=== PATIENT | male | born 1965 | race Caucasian/White ===

== ENCOUNTER 2018-05-24 08:25 | Day surgery (SDC) | payer OTHER, SELFPAY ==
[2018-05-01 16:24] VITALS: BMI 34.8
[2018-05-15 16:49] VITALS: BMI 34.8
[2018-05-24] VITALS (7 sets, daily range): BP systolic 114–139; BP diastolic 68–89; PULSE 41–56; RESP 16; TEMP 36.1–36.4; O2SAT 95–100; BMI 33.1
--- NOTE | 2018-05-24 09:53 | H&P.OPEN ---
History of Present Illness Date of Admission: 05/24/18 The patient is a 52 year old M here for screening colonoscopy. The patient reports he is never had a colonoscopy in the past. He denies any abdominal pain or bleeding. He says his only family history of colon cancer was in his grandfather at an elderly age. Past Medical/Surgical History - Planned Operation Planned Operative Procedure/s: COLONOSCOPY Date of Operative Procedure: 05/24/18 Permit Signed: Yes S.O.S: No Is This Patient Having a Total Joint: No - Previous Hospitalizations/Surgeries HX Hospitalizations: No Any Problems With Anesthesia: No You/Your Family Experience Fever (Hyperthermia) With Anes: No Cholinesterase deficiency: No - Cardiovascular Hx Chest Pain within Last 2 months: No Hx of Irregular Heartbeat and/or Afib: No Hx Heart Attack: No Hx Congestive Heart Failure: No Hx Rheumatic Fever: No Hx Hypertension: Yes - ON MED, STARTED 3 WEEKS AGO Hx Internal Defibrillator: No Hx Pacemaker: No Hx Cardiac Catheterization: No Hx Cardiac Surgery/Stents/Etc.: No Hx Stress Test: No HX Edema: No Hx Pain in Legs when Walking/Leg Cramps: No - Respiratory Chronic Cough: No HX of Shortness of Breath: No Hoarseness: No Hx Chronic Obstructive Pulmonary Disease (COPD): No Hx Asthma: No Hx Emphysema: No Hx Sleep Apnea: Yes CPAP: No BIPAP: No Hx Oxygen Use at Home: No Hx Respiratory Tract Infection/Cold (presently): No Result (for STOP score): Positive Hx Smoking: No Smoking Status: Never smoker - Gastrointestinal Hx Gastroesophageal Reflux: No Hx Gastrointestinal Disorders: No Hx Gastrointestinal Bleed: No Hx Ulcer: No Hx Hiatal Hernia: No Difficulty Chewing/Swallowing: No Recent Onset of Swallowing Problems: No Special diet followed at home: No Hx Unplanned Weight Loss of 20#: No HX Unplanned Weight Gain of 20#: No - Neurological Hx Seizures: No HX Syncope/Blackout Spells/Unconsciousness: No Hx CVA/Stroke: No Hx Transient Ischemic Attacks (TIA): No Hx Multiple Sclerosis: No Hx Parkinson's Disease: No Hx Head/Neck Injury: No Hx Headaches: No Hx Back Injury/Pain: Yes Recent Onset of Speech Difficulty: No Restless Legs: No Does patient have nerve stimulator: No - Blood Disorder Hx Leukemia: No Bleeding Tendencies: No Hx Deep Vein Thrombosis: No Hx High Cholesterol: No Blood Transmitted Disease: No Hx Hepatitis: No Hx Cirrhosis: No Hx Anemia: No Hx Blood Disorders: No - Genitourinary Hx Renal Disease: No - Musculoskeletal Hx Arthritis: No Hx Rheumatoid Arthritis: No Hx Gout: No Recent Onset of an Orthopedic Problem: No - Endocrine Hx Diabetes: No Thyroid Disease: No Hx Steroid Therapy: No - Psycho/Social Hx Substance Use: No Hx Alcohol Use: Yes - 1-2 BEER EVERY OTHER DAY Hx Anxiety: No Hx Depression: No Mental Illness: No Hx Dementia: No - Miscellaneous Hx Cancer: No Recent Exposure to Contagious Disease: No Active MRSA: No Hx of C-Diff: No Any Loose Teeth: Yes - UPPER DENTURES Allergies No Known Allergies Allergy (Verified 05/21/18 12:02) - Discharge Is Pt Admitted From a Skilled Nursing, or a [place] [facility]: No Who Could Help: [facility] After D/C, Where Do you Plan to Go: Return Home - Physical Exam General: Alert, Oriented x3 Neck: No JVD Lungs: Normal air movement Cardiovascular: Regular rate, Regular Rhythm Abdomen: Soft, Non Tender, Non-Distended Vital Signs Temp Pulse Resp BP Pulse Ox 96.9 F L 50 L 16 138/89 H 99 05/24/18 08:43 05/24/18 08:43 05/24/18 08:43 05/24/18 08:43 05/24/18 08:43 Oxygen Delivery Method Room Air Weight: 224 lb 10.417 oz Body Mass Index (BMI) 33.1 Assessment/Plan All Active Problems (Last Updated 05/01/18 @ 16:28 by Adele Fox) Meningitis spinal (Acute) 52-year-old male screening colonoscopy I explained endoscopy in detail to the patient. I explained the risks including but not limited to stroke or heart attack with anesthesia, perforation of the GI tract, bleeding, infection. I explained that any of these could necessitate further emergency surgery. The patient understands and all questions were answered sufficiently. The patient wishes to proceed with procedure. Aldo Hma MD Pager: [facility] [address] [place] [address], [address] [place] [address] Office: Surgery Risks - Colonoscopy Risks Include but are not Limited To: Risks include but are not limited to: Bleeding, perforation requiring further surgery, inability to complete colonoscopy requiring barium enema.
--- NOTE | 2018-05-24 10:16 | OP.ENDO_ITS ---
Patient Name: Jose Meneses Procedure Date: 05/24/2018 9:55 AM Date of : 1965 Age: 52 Procedure: Colonoscopy Indications: Screening for colorectal malignant neoplasm Providers: Aldo Ham MD Medicines: Monitored Anesthesia Care Patient Profile: This is a 52 year old male. Refer to note in patient chart for documentation of history and physical. Last Colonoscopy: none. The patient's first colonoscopy is today. Complications: No immediate complications. Procedure: Pre-Anesthesia Assessment: - Prior to the procedure, a History and Physical was performed, and patient medications and allergies were reviewed. The patient's tolerance of previous anesthesia was also reviewed. The risks and benefits of the procedure and the sedation options and risks were discussed with the patient. All questions were answered, and informed consent was obtained. Prior Anticoagulants: The patient has taken no previous anticoagulant or antiplatelet agents. After reviewing the risks and benefits, the patient was deemed in satisfactory condition to undergo the procedure. After I obtained informed consent, the scope was passed under direct vision. Throughout the procedure, the patient's blood pressure, pulse, and oxygen saturations were monitored continuously. The pediatric colonoscope was introduced through the anus and advanced to the cecum, identified by appendiceal orifice and ileocecal valve. The colonoscopy was performed without difficulty. The patient tolerated the procedure well. The quality of the bowel preparation was good. Scope In: 10:02:03 AM Scope Withdrawal Time 0 hours 6 minutes 14 seconds Scope Out: 10:12:19 AM Total Procedure Duration Time 0 hours 10 minutes 16 seconds Findings: The entire examined colon appeared normal on direct and retroflexion views. Impression: - The entire examined colon is normal on direct and retroflexion views. - No specimens collected. Recommendation: - Discharge patient to home. - Resume previous diet. - Continue present medications. - Repeat colonoscopy in 10 years for screening purposes. Procedure Code(s): --- Professional --- 75419, PT, Colonoscopy, flexible; diagnostic, including collection of specimen(s) by brushing or washing, when performed (separate procedure) Diagnosis Code(s): --- Professional --- Z12.11, Encounter for screening for malignant neoplasm of colon CPT copyright 2017 [employer]. All rights reserved. The codes documented in this report are preliminary and upon field operations technician review may be revised to meet current compliance requirements. Aldo Ham MD 05/24/2018 10:15:34 AM This report has been signed electronically. Number of Addenda: 0 Note Initiated On: 05/24/2018 9:55 AM
== END 2018-05-24 11:18 | disposition home or self-care (01) ==
LOC: EN 08:26 → AC 08:28
PROVIDERS: Family Provider Family Medicine; PCP Family Medicine; Referring Provider Surgery; Visit Provider Surgery
PROC: 0DJD8ZZ Inspection of Lower Intestinal Tract, Via Natural or Artificial Opening Endoscopic (ICD-10-PCS; CPT 45378; principal; 2018-05-24 09:25)
DX: Z12.11 Encounter for screening for malignant neoplasm of colon (principal); I10 Essential (primary) hypertension
CPT/HCPCS: 45378; J7120

== ENCOUNTER 2024-02-20 13:15 | Outpatient (RCR) | payer BC, SELFPAY ==
[2024-02-06 10:05] VITALS: BP 153/86; PULSE 76; RESP 18; TEMP 36.8; BMI 43.3
--- NOTE | 2024-02-06 11:42 | HP.PCM_ITS ---
History of Present Illness Date of Service: 02/06/24 Chief Complaint: Right leg ulceration History of Wound: Right leg ulceration Progress of Wound: Mr. Meneses is a 58-year-old nondiabetic male presented wound care center today for evaluation of full-thickness wound to the right lower extremity. Patient was seen by an outside provider who provided compression wraps to the patient however his wound has gotten worse with notable drainage and malodor. The patient is not a diabetic. He does use compression stockings but has not been able to get the right wound on his leg healed. He has had continuous compression wraps without much success. He did do 1 round of Bactrim antibiotics but the wounds are still present. He denies trauma denies constitutional symptoms. No other pedal complaints at this time. [facility] Medical History (Updated 02/06/24 @ 11:[address] Ye Quinones DPM) Sleep apnea History of back problems Hypertension Meningitis spinal Home Medications ?Medication ?Instructions ?Recorded ?Last Taken ?Type amlodipine 5 mg-valsartan 160 mg 1 tab PO DAILY #90 tabs 03/15/21 Unknown Rx tablet amoxicillin 875 mg-potassium 1 tab PO BID 2 weeks #28 tabs 02/06/24 Unknown Rx clavulanate 125 mg tablet atorvastatin 20 mg tablet 30 mg PO DAILY 02/06/24 Unknown History gabapentin 600 mg tablet 600 mg PO TID 02/06/24 Unknown History tramadol 50 mg tablet 50 mg PO TID PRN PRN pain 02/06/24 Unknown History triamterene 37.5 1 cap PO DAILY 02/06/24 Unknown History mg-hydrochlorothiazide 25 mg capsule valsartan 80 mg tablet 80 mg PO DAILY 02/06/24 Unknown History Allergy/AdvReac Type Severity Reaction Status Date / Time No Known Allergies Allergy Verified 02/06/24 10:00 Family History Grandfather Colon cancer Alcoholism Father Myocardial infarction, Onset Age: 52 Surgical History History of colonoscopy Social History Smoking Status: Never smoker alcohol intake: current alcohol intake frequency: a few times a week Alcohol type: beer substance use type: does not use what type of physical activity do you participate in: none frequency: daily Vital Signs Vital Signs Vital Signs: 02/06/24 10:05 Temperature 98.2 F Temperature Source Temporal Pulse Rate 76 Respiratory Rate 18 Blood Pressure 153/86 H Blood Pressure Mean 108 Blood Pressure Source Monitor Blood Pressure Position Sitting Blood Pressure Location Right Arm Oxygen Delivery Method Room Air Weight Weight: 129.274 kg Body Mass Index (BMI) 43.3 Physical Exam Narrative Vascular: DP and PT pulse are faintly palpable secondary to edema. CFT is brisk. There is blanchable erythema to the right leg. Skin temperature gradient is warm to warm from proximal ankles to distal digit. No focal warmth is appreciated left lower extremity. +1 pitting edema bilateral. Neurological: Light touch intact. Patient does respond to painful stimuli. Dermatological: Full-thickness ulceration to the right leg measuring 4.0 x 2.3 x 0.1 cm. Full-thickness ulceration to the left leg measuring 3.5 x 3.5 x 0.1 cm. The wound base to the right leg is fibrogranular in nature. Evidence of weeping serous drainage. Mild malodor. Negative probe to bone bilateral. Musculoskeletal: Muscle strength is 5 out of 5 in all quadrants bilateral. Mild to moderate palpatory tenderness appreciated to the right leg. No pain with calf compression bilateral. Debridement Note Debridement Note Post-Debridement Measurements and Additional Note: Post-Debridement Measurements/Treatment - Nurse 1 - General Ulcer Assessment Start: 02/06/24 10:00 Freq: Status: Active Protocol: WC.LOWEXT Activity Type Activity Date Activity User E-sign Co-sign Detail Recorded Client Recorded Date Recorded By Document 02/06/24 10:05 STEPHY [id number] 02/06/24 10:09 STEPHY 02/06/24 10:05 - Today's Visit Information Type of service Initial Visit Arrival Mode Ambulatory Patient Identification Verified (Name & Yes ) Patient Requires Transmission-Based No Precautions Safety Precautions Fall Prevention Height and Weight Height 5 ft 8 in Weight 129.274 kg Weight in Pounds 285.0 lbs Weight Measurement Method Estimated by Patient Body Mass Index (BMI) 43.3 BMI Classification Obese BSA - Moses 2.38 Vital Signs Temperature (97.8 F-99.1 F) 98.2 F Temperature Source Temporal Pulse Rate (60-100) 76 Pulse Location Monitor Respiratory Rate (12-18) 18 Respiratory rate source Observation Oxygen Delivery Method Room Air Blood Pressure (90/60-120/80) 153/86 H Blood Pressure Mean 108 Source Monitor Position Sitting Blood Pressure Location Right Arm History Since Last Visit- (Skip if this is Patient's initial visit) Left Footwear Regular Shoe Right Footwear Regular Shoe Pain Scale: 0-10 Numeric Is Patient Pain Free? Yes Communication Assessment Preferred language [place] Islander Supervisor Policy Change Clerks Required No Able to Read Yes Able to Write Yes Right Hearing Abillity Normal Left Hearing Abillity Normal Visual Assistive Devices Glasses Teaching Assessment Preferences Verbal,Written, Demonstration Barriers to Learning None Readiness To Learn Excellent Willingness to Engage in Self Management High Activies Readiness to Engage in Self Management High Activities Anxiety Level Calm Cooperation Cooperative Perception Coherent Interest in Health Problem Asks Questions Education Importance Acknowledges Need Does Patient Smoke tobacco or other Yes substances Smoking Status Never smoker Is Patient Diabetic No Functional Assessment Recent Decline in Ability to Perform Denies Any Declines Culture/Orthodoxy/Brazing Machine Feeder Cultural/Orthodoxy Needs that may affect No Treatment Plan Teaching: Wound Center *Welcome to the Wound Center -Person Taught Patient -Teaching Method Discussion -Response to teaching Verbalize Understanding WC - Nurse 1 - General Ulcer Measurement Start: 02/06/24 10:00 Freq: Status: Active Protocol: Activity Type Activity Date Activity User E-sign Co-sign Detail Recorded Client Recorded Date Recorded By Document 02/06/24 10:09 STEPHY [id number] 02/06/24 10:33 DS 02/06/24 10:09 Wound Center Nurse 1 #2 right leg -Tunneling No -Undermining/Tunneling No -Circular Undermining No -Exudate Amt Medium -Exudate Type Serosanguineous -Granulation Amt Medium (34-66%) -Granulation Quality [place] -Necrosis Amt Medium (34-66%) -Necrotic Tissue Type Adherent Slough -Temperature (Ines-wound Skin No Abnormality Appearance) (Pt Warm) -Tenderness on Palpation (Ines-wound Yes Skin Appearance) -Ulcer Cleansing Soap and Water -Anesthetic Used 4% Lidocaine Solution #3 left post calf -Current Size (cm) - Length 3.5 -Current Size (cm) - Width 3.5 -Current Size (cm) - Depth 0.1 -Total Square Cm 12.25 -Date of Last Picture (Recall this 02/06/24 field) -Photo Taken Yes -Tunneling No -Undermining/Tunneling No -Circular Undermining No -Exudate Amt Small -Exudate Type Serosanguineous -Wound Margin Distinct, Outline Attached -Granulation Amt Medium (34-66%) -Granulation Quality [place] -Necrosis Amt Medium (34-66%) -Necrotic Tissue Type Adherent Slough -Texture (Ines-wound Skin Appearance) Assessed -Moisture (Ines-wound Skin Appearance) Assessed -Color (Ines-wound Skin Appearance) Assessed -Temperature (Ines-wound Skin No Abnormality Appearance) (Pt Warm) -Tenderness on Palpation (Ines-wound Yes Skin Appearance) -Ulcer Cleansing Soap and Water -Anesthetic Used 4% Lidocaine Solution #1 right lateral leg -Current Size (cm) - Length 4.0 -Current Size (cm) - Width 2.3 -Current Size (cm) - Depth 0.1 -Total Square Cm 9.20 -Date of Last Picture (Recall this 02/06/24 field) -Photo Taken Yes -Tunneling No -Undermining/Tunneling No -Circular Undermining No -Exudate Amt Large -Exudate Type Serosanguineous -Granulation Amt Small (1-33%) -Granulation Quality [place] -Necrosis Amt Medium (34-66%) -Necrotic Tissue Type Adherent Slough -Texture (Ines-wound Skin Appearance) Assessed -Moisture (Ines-wound Skin Appearance) Assessed -Color (Ines-wound Skin Appearance) Assessed -Temperature (Ines-wound Skin No Abnormality Appearance) (Pt Warm) -Tenderness on Palpation (Ines-wound Yes Skin Appearance) -Ulcer Cleansing Soap and Water -Anesthetic Used 4% Lidocaine Solution Lower Limb Edema Present Yes Right Calf (cm) 50.2 Right Ankle (cm) 31.0 Left Calf (cm) 49.7 Left Ankle (cm) 30.8 WC - Nurse 2 - General Ulcer CM Notes Start: 02/06/24 10:00 Freq: Status: Active Protocol: Activity Type Activity Date Activity User E-sign Co-sign Detail Recorded Client Recorded Date Recorded By Document 02/06/24 11:14 MARIZA [id number] 02/06/24 11:15 MARIZA 02/06/24 11:14 Wound Center Nurse 2 #2 right leg -Correct Patient No -Correct Side, Site, Position No -Correct Procedure No -Procedure Performed No -Wound/Ulcer Outcome Not Healed -Debridement - Subq, 1st 20sq cm No #3 left post calf -Correct Patient No -Correct Side, Site, Position No -Correct Procedure No -Procedure Performed No -Wound/Ulcer Outcome Not Healed #1 right lateral leg -Correct Patient No -Correct Side, Site, Position No -Correct Procedure No -Procedure Performed No -Wound/Ulcer Outcome Not Healed Pain Scale: 0-10 Numeric Is Patient Pain Free? Yes - Nurse 3 - General Ulcer D/C NN Start: 02/06/24 10:00 Freq: Status: Active Protocol: Activity Type Activity Date Activity User E-sign Co-sign Detail Recorded Client Recorded Date Recorded By Document 02/06/24 11:23 [id number] 02/06/24 11:27 02/06/24 11:23 Wound Care Center Nurse 3 #2 right leg -Ulcer Cleansing Not Cleansed -Foul Odor after Cleansing No -Primary Dressing Applied Hysept ($) -Primary Dressing Covered/Secured with Dry Gauze & Roll Gauze, Secured with Tape Right -Lotion applied to leg before No compression wrap -Tubular Bandage Double Layer -Size of Tubigrip Used Size F -Size F ($) 4 Pain Scale: 0-10 Numeric Is Patient Pain Free? Yes - Visit Discharge Discharge Condition Stable Ambulatory Status Ambulatory Transportation Private Auto Assessment/Plan Assessment/Plan (1) Non-pressure chronic ulcer of other part of right lower leg with fat layer exposed: CODE(S): L97.812 - Non-pressure chronic ulcer of other part of right lower leg with fat layer exposed PLAN: Patient was examined and evaluated. All findings were discussed with the patient. All questions were answered to the patient's satisfaction. No debridement was done to the right lower extremity at this time. The full- thickness wound with cultures will be sent off for microbiology for culture and sensitivity. The patient will be placed on Augmentin 875 twice daily for 2 weeks. Will begin authorization for vascular and venous studies to the bilateral lower extremity to see if the patient needs referral to vascular surgery for possible intervention to the venous or arterial system. Once vascular studies have returned we will begin multilayer compression bandages if the patient is willing and able. The right lower extremity was dressed with Dakin solution, dry sterile dressing and a double layer Tubigrip was donned bilateral. Patient was given a order for extra supplies to be purchased at the [facility] retail pharmacy. He was instructed to change his dressings 1-2 times per day depending on drainage which she is understanding of. Educated the patient that he will need to elevate his bilateral lower extremity when he is at rest 4 inches above his heart which she is also understanding of. No plan for surgical intervention at this time but will continue conservative treatment with outpatient wound care management. Follow-up at the wound care center with Dr. Quinones in 2 week. (2) Non-pressure chronic ulcer of other part of left lower leg with fat layer exposed: CODE(S): L97.822 - Non-pressure chronic ulcer of other part of left lower leg with fat layer exposed (3) Lymphedema: CODE(S): I89.0 - Lymphedema, not elsewhere classified (4) Other specified peripheral vascular diseases: CODE(S): I73.89 - Other specified peripheral vascular diseases (5) Cellulitis: CODE(S): L03.90 - Cellulitis, unspecified QUALIFIERS: Site of cellulitis: extremity Site of cellulitis of extremity: lower extremity Laterality: right Qualified Code(s): L03.115 - Cellulitis of right lower limb
--- NOTE | 2024-02-07 09:35 | WC ---
PHOTO 02/06/24 LEFT LEG
--- NOTE | 2024-02-07 09:40 | WC ---
PHOTO RIGHT LEG 02/06/24
--- NOTE | 2024-02-07 09:43 | WC ---
PHOTO 02/06/24 RIGHT LEG
[2024-02-20 13:08] VITALS: BP 133/85; PULSE 112; RESP 18; TEMP 36.1; BMI 43.3
--- NOTE | 2024-02-20 13:37 | PN.PCM_ITS ---
History of Present Illness Date of Service: 02/20/24 Chief Complaint: Right leg ulceration History of Wound: Right leg ulceration Progress of Wound: Patient has been doing dressing changes to right lower extremity with Dakin's dry sterile dressing and compression wrap. He mitts improvement to his leg circumference and pain. He has taken his antibiotic as written. He presents today for reevaluation of Subjective Subjective Mr Meneses is a 58-year-old male presenting to the wound care center today for follow-up evaluation of full-thickness wound to the right leg secondary to peripheral vascular disease versus venous stasis. Patient was on his trip to [place] where he was doing dressing changes daily. He admits improvement to his leg. He still states there is pain with dressing changes but he has full sensation to the bilateral lower extremity. Patient is not diabetic. Denies trauma. Denies constitutional symptoms. No other pedal complaints at this time. Objective Data Objective Data Vital Signs: Vital Signs Temp Pulse Resp BP O2 Del Method 96.9 F L 112 H 18 133/85 H Room Air 02/20/24 13:08 02/20/24 13:08 02/20/24 13:08 02/20/24 13:08 02/20/24 13:08 Oxygen Delivery Method Room Air Weight: 129.274 kg Body Mass Index (BMI) 43.3 Lab / Micro Data Micro: Microbiology 02/06/24 11:05 Ulcer, Decubitus - Leg, Right Gram Stain - Final 02/06/24 11:05 Ulcer, Decubitus - Leg, Right Wound Culture - Final Serratia marcescens Staphylococcus aureus Streptococcus group G 02/06/24 11:05 Ulcer, Decubitus - Leg, Right Anaerobic Culture - Final Anaerobic cocci Physical Exam Narrative Vascular: DP and PT pulse are faintly palpable secondary to edema. CFT is brisk. Erythema improving to the right lower extremity. Skin temperature gradient is warm to warm from proximal ankles to distal digit. No focal warmth is appreciated left lower extremity. +1 pitting edema bilateral. Neurological: Light touch intact. Patient does respond to painful stimuli. Dermatological: Full-thickness ulceration to the right leg measuring 13.3 x 6.5 x 0.1 cm. The wound base to the right leg is fibrogranular in nature. Evidence of weeping serous drainage. No malodor. Negative probe to bone bilateral. Excisional debridement down to and including subcutaneous tissue with a number 7 mm dermal curette to the right leg full-thickness ulceration without incident. Predebridement measurement was 12.5 x 6.0 x 0.1 cm. Postdebridement measurement is 13.3 x 6.5 x 0.1 cm. Musculoskeletal: Muscle strength is 5 out of 5 in all quadrants bilateral. Mild to moderate palpatory tenderness appreciated to the right leg. No pain with calf compression bilateral. Debridement Note Debridement Note Debridement Free Text: Excisional debridement down to and including subcutaneous tissue with a number 7 mm dermal curette to the right leg full-thickness ulceration without incident. Predebridement measurement was 12.5 x 6.0 x 0.1 cm. Postdebridement measurement is 13.3 x 6.5 x 0.1 cm. 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 ) Arrival Mode Ambulatory Ambulatory Patient Identification Verified (Name & Yes Yes ) Patient Requires Transmission-Based No Precautions Safety Precautions Fall Prevention Height and Weight Height 5 ft 8 in Weight 129.274 kg Weight in Pounds 285.0 lbs Weight Measurement Method Estimated by Patient Body Mass Index (BMI) 43.3 43.3 BMI Classification Obese Obese BSA - Moses 2.38 Vital Signs Temperature (97.8 F-99.1 F) 98.2 F 96.9 F L Temperature Source Temporal Temporal Pulse Rate (60-100) 76 112 H Pulse Location Monitor Monitor Respiratory Rate (12-18) 18 18 Respiratory rate source Observation Observation Oxygen Delivery Method Room Air Room Air Blood Pressure (90/60-120/80) 153/86 H 133/85 H Blood Pressure Mean (mm Hg) 108 101 Source Monitor Monitor Position Sitting Semi-Fowlers Blood Pressure Location Right Arm Left Arm History Since Last Visit- (Skip if this is Patient's initial visit) Have you changed medications since your No last visit? Any new allergies or adverse reactions No Had a fall/change in ADL's that may No increase risk of falls Signs or symptoms of abuse and/or No neglect since last visit Have you been in the hospital since your No last visit? Has dressing in place as prescribed Yes Has compression in place as prescribed Yes Has offloadiing in place as prescribed N/A Experienced any changes in pain level or No management Left Footwear Regular Shoe Regular Shoe Right Footwear Regular Shoe Regular Shoe Pain Scale: 0-10 Numeric Is Patient Pain Free? Yes Yes Communication Assessment Preferred language [facility] Retail Support Specialist Required No Able to Read Yes Able to Write Yes Right Hearing Abillity Normal Left Hearing Abillity Normal Visual Assistive Devices Glasses Teaching Assessment Preferences Verbal,Written, Demonstration Barriers to Learning None Readiness To Learn Excellent Willingness to Engage in Self Management High Activies Readiness to Engage in Self Management High Activities Anxiety Level Calm Cooperation Cooperative Perception Coherent Interest in Health Problem Asks Questions Education Importance Acknowledges Need Does Patient Smoke tobacco or other Yes substances Smoking Status Never smoker Is Patient Diabetic No Functional Assessment Recent Decline in Ability to Perform Denies Any Declines 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 Needs that may affect No Treatment Plan Teaching: Wound Center *Welcome to the Wound Center -Person Taught Patient -Teaching Method Discussion -Response to teaching Verbalize Understanding WC - Nurse 1 - General Ulcer Measurement Start: 02/06/24 10:00 Freq: Status: Active Protocol: Activity Type Activity Date Activity User E-sign Co-sign Detail Recorded Client Recorded Date Recorded By Document 02/06/24 10:09 DS [id number] 02/06/24 10:33 DS Document 02/20/24 13:08 KW [id number] 02/20/24 13:21 KW 02/06/24 02/20/24 10:09 13:08 Wound Center Nurse 1 #2 right leg -Current Size (cm) - Length 24 -Current Size (cm) - Width 11.5 -Current Size (cm) - Depth 0.2 -Total Square Cm 276.0 -Date of Last Picture (Recall this 02/20/24 field) -Tunneling No -Undermining/Tunneling No -Circular Undermining No -Exudate Amt Medium Medium -Exudate Type Serosanguineous Serosanguineous -Wound Margin Distinct, Outline Attached -Granulation Amt Medium (34-66%) Medium (34-66%) -Granulation Quality [place] Red -Necrosis Amt Medium (34-66%) Medium (34-66%) -Necrotic Tissue Type Adherent Slough Adherent Slough -Texture (Ines-wound Skin Appearance) Assessed -Moisture (Ines-wound Skin Appearance) Assessed -Color (Ines-wound Skin Appearance) Assessed, Erythema -Temperature (Ines-wound Skin No Abnormality No Abnormality Appearance) (Pt Warm) (Pt Warm) -Tenderness on Palpation (Ines-wound Yes No Skin Appearance) -Ulcer Cleansing Soap and Water Soap and Water -Foul Odor after Cleansing No -Anesthetic Used 4% Lidocaine 4% Lidocaine Solution Solution #3 RIGHT post calf -Current Size (cm) - Length 3.5 -Current Size (cm) - Width 3.5 -Current Size (cm) - Depth 0.1 -Total Square Cm 12.25 -Date of Last Picture (Recall this 02/06/24 field) -Photo Taken Yes -Tunneling No -Undermining/Tunneling No -Circular Undermining No -Exudate Amt Small -Exudate Type Serosanguineous -Wound Margin Distinct, Outline Attached -Granulation Amt Medium (34-66%) -Granulation Quality [place] -Necrosis Amt Medium (34-66%) -Necrotic Tissue Type Adherent Slough -Texture (Ines-wound Skin Appearance) Assessed -Moisture (Ines-wound Skin Appearance) Assessed -Color (Ines-wound Skin Appearance) Assessed -Temperature (Ines-wound Skin No Abnormality Appearance) (Pt Warm) -Tenderness on Palpation (Ines-wound Yes Skin Appearance) -Ulcer Cleansing Soap and Water -Anesthetic Used 4% Lidocaine Solution #1 right lateral leg CLUSTER -Current Size (cm) - Length 4.0 -Current Size (cm) - Width 2.3 -Current Size (cm) - Depth 0.1 -Total Square Cm 9.20 -Date of Last Picture (Recall this 02/06/24 field) -Photo Taken Yes -Tunneling No -Undermining/Tunneling No -Circular Undermining No -Exudate Amt Large -Exudate Type Serosanguineous -Granulation Amt Small (1-33%) -Granulation Quality [place] -Necrosis Amt Medium (34-66%) -Necrotic Tissue Type Adherent Slough -Texture (Ines-wound Skin Appearance) Assessed -Moisture (Ines-wound Skin Appearance) Assessed -Color (Ines-wound Skin Appearance) Assessed -Temperature (Ines-wound Skin No Abnormality Appearance) (Pt Warm) -Tenderness on Palpation (Ines-wound Yes Skin Appearance) -Ulcer Cleansing Soap and Water -Anesthetic Used 4% Lidocaine Solution Lower Limb Edema Present Yes Right Calf (cm) 50.2 Right Ankle (cm) 31.0 Left Calf (cm) 49.7 Left Ankle (cm) 30.8 WC - Nurse 2 - General Ulcer CM Notes Start: 02/06/24 10:00 Freq: Status: Active Protocol: Activity Type Activity Date Activity User E-sign Co-sign Detail Recorded Client Recorded Date Recorded By Document 02/06/24 11:14 [id number] 02/06/24 11:15 Document 02/20/24 13:31 [id number] 02/20/24 13:35 02/06/24 02/20/24 11:14 13:31 Wound Center Nurse 2 #2 right leg -Time 13:32 -Correct Patient No Yes -Correct Side, Site, Position No Yes -Correct Procedure No Yes -Procedure Performed No Yes -Type of Procedure Debridement -Clinical Debridement Subcutaneous -Tissue Removed Subcutaneous -Tunneling No -Undermining/Tunneling No -Circular Undermining No -Wound/Ulcer Outcome Not Healed Not Healed -Ulcer Cleansing Rinsed/ Irrigated with Saline -Foul Odor after Cleansing No -Bioengineered Tissue No -Bleeding Controlled with Pressure -Treatment Response Procedure Tolerated Well -Offloading No -Debridement - Subq, 1st 20sq cm No Yes #3 RIGHT post calf -Time 13:32 -Correct Patient No Yes -Correct Side, Site, Position No Yes -Correct Procedure No Yes -Procedure Performed No Yes -Type of Procedure Debridement -Clinical Debridement Subcutaneous -Tissue Removed Subcutaneous -Tunneling No -Undermining/Tunneling No -Circular Undermining No -Wound/Ulcer Outcome Not Healed Not Healed -Foul Odor after Cleansing No -Bioengineered Tissue No -Bleeding Controlled with Pressure -Treatment Response Procedure Tolerated Well -Offloading No -Debridement - Subq, 1st 20sq cm Yes #1 right lateral leg CLUSTER -Correct Patient No Yes -Correct Side, Site, Position No Yes -Correct Procedure No Yes -Procedure Performed No Yes -Type of Procedure Debridement -Clinical Debridement Subcutaneous -Tissue Removed Subcutaneous -Post Debridement (cm) - Length 13.3 -Post Debridement (cm) - Width 6.5 -Post Debridement (cm) - Depth 0.1 -Total Square (Post) (cm) 86.45 -Area of Debridement (cm) - Length 13.3 -Area of Debridement (cm) - Width 6.5 -Total Square (Area) (cm) 86.45 -Tunneling No -Undermining/Tunneling No -Circular Undermining No -Wound/Ulcer Outcome Not Healed Not Healed -Bioengineered Tissue No -Bleeding Controlled with Pressure -Treatment Response Procedure Tolerated Well -Offloading No -Debridement - Subq, 1st 20sq cm Yes -Debridement, SubQ, ea addt'l 20sq cm 4 or part thereof Pain Scale: 0-10 Numeric Is Patient Pain Free? Yes Yes - Nurse 3 - General Ulcer D/C NN Start: 02/06/24 10:00 Freq: Status: Active Protocol: Activity Type Activity Date Activity User E-sign Co-sign Detail Recorded Client Recorded Date Recorded By Document 02/06/24 11:23 [id number] 02/06/24 11:27 02/06/24 11:23 Wound Care Center Nurse 3 #2 right leg -Ulcer Cleansing Not Cleansed -Foul Odor after Cleansing No -Primary Dressing Applied Hysept ($) -Primary Dressing Covered/Secured with Dry Gauze & Roll Gauze, Secured with Tape Right -Lotion applied to leg before No compression wrap -Tubular Bandage Double Layer -Size of Tubigrip Used Size F -Size F ($) 4 Pain Scale: 0-10 Numeric Is Patient Pain Free? Yes - Visit Discharge Discharge Condition Stable Ambulatory Status Ambulatory Transportation Private Auto Assessment/Plan Assessment/Plan (1) Non-pressure chronic ulcer of other part of right lower leg with fat layer exposed: CODE(S): L97.812 - Non-pressure chronic ulcer of other part of right lower leg with fat layer exposed PLAN: Patient was examined and evaluated. All findings were discussed with the patient. All questions were answered to the patient's satisfaction. Excisional debridement down to and including subcutaneous tissue with a number 7 mm dermal curette to the right leg full-thickness ulceration without incident. Predebridement measurement was 12.5 x 6.0 x 0.1 cm. Postdebridement measurement is 13.3 x 6.5 x 0.1 cm. The patient's right lower extremity was wiped clean and patted dry. The full-thickness wounds were dressed with Dakin solution soaked gauze dry sterile dressing and Tubigrip to the bilateral lower extremity. Review of the patient's cultures the patient shows evidence of Staph aureus growth as well as Serratia marcescens. The patient will be placed on ciprofloxacin 750 mg twice daily for 2 weeks. The patient has completed his Augmentin as prescribed. The patient has noticed great improvement to the leg diameter and pain to the right lower extremity. The patient will be following up with the vascular lab for vascular studies in the next upcoming weeks. Follow-up at the wound care center with Dr. Quinones in 1 week.
--- NOTE | 2024-02-26 15:02 | WC ---
PHOTO 02/20/24 RIGHT LEG CLUSTER
== END 2024-02-23 23:59 | disposition home or self-care (01) ==
LOC: WC 13:15
PROVIDERS: PCP Nurse Practitioner Family; Referring Provider Nurse Practitioner Family; Visit Provider Podiatrist Foot & Ankle Surgery
DX: I73.89 Other specified peripheral vascular diseases (principal); L97.812 Non-pressure chronic ulcer of other part of right lower leg with fat layer exposed; L97.822 Non-pressure chronic ulcer of other part of left lower leg with fat layer exposed; I10 Essential (primary) hypertension; M79.604 Pain in right leg; I89.0 Lymphedema, not elsewhere classified; L03.115 Cellulitis of right lower limb
CPT/HCPCS: 11042; 11045; 87070; 87075; 87077; 87186; 87205; 99214; G0463

== ENCOUNTER → 2024-02-26 | Outpatient (CLI) | payer BC, SELFPAY ==
--- NOTE | 2024-02-26 13:58 | ART_ITS ---
Reason For Study: BLE Wounds Procedure A bilateral lower extremity continuous wave Doppler with analog waveform analysis,segmental pressures,and ankle brachial indexes without exercise. Left Segmental Pressures Left brachial= 128mmHg. Left posterior tibial artery = 185mmHg. Left dorsalis pedis artery = 170mmHg. Left digit = 141 mmHg. The left posterior tibial artery waveforms are triphasic. The left dorsalis pedis waveforms are triphasic. Right Segmental Pressures Right brachial= 139mmHg. Right posterior tibial artery = 178mmHg. Right dorsalis pedis artery = 163mmHg. Right digit = 127 mmHg. The right posterior tibial artery waveforms are triphasic. The right dorsalis pedis waveforms are triphasic. Indices The right ankle brachial index by the posterior tibial artery is 1.28. The right ankle brachial index by the dorsalis pedis is 1.17. The right digital-brachial index is 0.91. The left ankle brachial index by the posterior tibial artery is 1.33. The left ankle brachial index by the dorsalis pedis is 1.22. The left digital-brachial index is 1.01. VL/Lower Ext Art Exam w/o Exercis Interpretation Summary Triphasic Doppler waveforms are noted at ankle level bilaterally. Pulse-volume recordings are satisfactory at all levels bilaterally. Resting ankle-brachial indices are norm al bilaterally. Digital-brachial indices are normal bilaterally. There is no evidence of significant arterial occlusive disease in the lower ext remities bilaterally. Ordering Physician: Ye Quinones Referring Physician: Jose Galvez Performed By: Jono Hollins RVShannan
--- NOTE | 2024-02-26 13:58 | VDLE_ITS ---
Reason For Study: BLE Wounds RIGHT LEFT CFV is compressible, spontaneous, phasic, CFV is compressible, spontaneous, phasic, competent and demonstrates normal competent, and demonstrates normal augmentation. augmentation. FV is compressible, spontaneous, phasic, FV is compressible, spontaneous, phasic, competent and demonstrates normal competent and demonstrates normal augmentation. augmentation. POP V is compressible, spontaneous, phasic, POP V is compressible, spontaneous, phasic, competent and demonstrates normal competent and demonstrates normal augmentation. augmentation. T/P Trunk is compressible. T/P Trunk is compressible. PTV is compressible. PTV is compressible. RT PerV is compressible. LT PerV is compressible. SFJ is competent and measures 0.59 cm. SFJ is competent and measures 0.70 cm. GSV proximal thigh measures 0.44 x 0.49 cm. GSV proximal thigh measures 0.39 x 0.44 cm. GSV at knee measures 0.53 x 0.60 cm. GSV at knee measures 0.38 x 0.38 cm. GSV is competent throughout. GSV is competent throughout. SSV at junction is competent and measures SSV at junction is competent and measures 0.46 cm. 0.40 cm. SSV mid calf is INCOMPETENT for greater than SSV mid calf is competent and measures 0.43 x 0.5 seconds and measures 0.46 x 0.52 cm. 0.45 cm. ASV mid calf is INCOMPETENT for greater than 0.5 seconds and measures 0.32 x 0.38 cm. Procedure Exam performed in department. This is a venous duplex using B-mode, color flow and spectral Doppler. The study was technically difficult due to patient positioning and involuntary movements. Patient was scanned in reverse Trendelenburg position during reflux assessment. VL/Venous Duplex US - Can Extrem Interpretation Summary Deep veins of the lower extremities are bilaterally patent and compressible seg mentally. There is no evidence of deep vein thrombosis on either side. Valvular competence appears in tact within the proximal deep venous systems bilaterally. The great saphenous veins appear bila terally patent and compressible segmentally. Sapheno-femoral junctions are bilaterally competent . Valvular competence appears to be intact segmentally within the great saphenous veins bilaterally. The right small saphenous vein is incompetent. The left small saphenous vein is competent. The accessory saphenous vein in the right mid-calf is incompetent. Ordering Physician: Ye Quinones Referring Physician: Jose Galvez Performed By: Jono Hollins RVT
== END | disposition home or self-care (01) ==
LOC: CVS 13:57
PROVIDERS: PCP Nurse Practitioner Family; Referring Provider Podiatrist Foot & Ankle Surgery; Visit Provider Podiatrist Foot & Ankle Surgery
DX: L97.919 Non-pressure chronic ulcer of unspecified part of right lower leg with unspecified severity (principal); M79.89 Other specified soft tissue disorders
CPT/HCPCS: 93923; 93970

== ENCOUNTER 2024-03-25 11:30 | Outpatient (RCR) | payer BC, SELFPAY ==
[2024-02-24 00:54] VITALS: BP 133/85; PULSE 112; RESP 18; TEMP 36.1; BMI 43.3
[2024-02-27 13:19] VITALS: BP 108/67; PULSE 102; RESP 16; TEMP 36.8; BMI 43.3
--- NOTE | 2024-02-27 14:53 | PCM.WC.PN ---
History of Present Illness Date of Service: 02/27/24 Chief Complaint: Right leg ulceration History of Wound: Right leg ulceration Subjective Subjective Mr. Meneses is a 58-year-old male presenting the wound care center today for follow-up evaluation of full-thickness wound to the right leg. Patient did get his vascular studies and is here to evaluate them to see if he can have more aggressive compression wraps to the right lower extremity. The patient states she is having more pain to the right leg as he was working longer hours last week and on his feet for long periods of time. He admits there is a new wound to the left leg that was not there previously due to breakdown of skin and swelling. Patient continues to be compliant with dressing changes but feels his compression is not enough. Denies trauma. Denies constitutional symptoms. No other pedal complaints at this time. Objective Data Objective Data Vital Signs: Vital Signs Temp Pulse Resp BP 98.2 F 102 H 16 108/67 02/27/24 13:19 02/27/24 13:19 02/27/24 13:19 02/27/24 13:19 Weight: 129.274 kg Body Mass Index (BMI) 43.3 Physical Exam Narrative Vascular: DP and PT pulse are faintly palpable secondary to edema. CFT is brisk. Erythema improving to the right lower extremity. Skin temperature gradient is warm to warm from proximal ankles to distal digit. No focal warmth is appreciated left lower extremity. +1 pitting edema bilateral. Neurological: Light touch intact. Patient does respond to painful stimuli. Dermatological: Full-thickness ulceration to the right leg measuring 7.5 x 16.0 x 0.1 cm. The wound base to the right leg is fibrogranular in nature. Evidence of weeping serous drainage. No malodor. Negative probe to bone bilateral. Full-thickness wound to the left leg measuring 4.2 x 7.0 x 0.1 cm. Wound base is granular with no sign of infection or drainage. Excisional debridement down to and including subcutaneous tissue with a number 7 mm dermal curette to the right leg full-thickness ulceration without incident. Predebridement measurement was 7.3 x 15.8 x 0.1 cm. Postdebridement measurement is 7.5 x 16.0 x 0.1 cm. Musculoskeletal: Muscle strength is 5 out of 5 in all quadrants bilateral. Mild to moderate palpatory tenderness appreciated to the right and left leg. No pain with calf compression bilateral. Debridement Note Debridement Note Debridement Free Text: Excisional debridement down to and including subcutaneous tissue with a number 7 mm dermal curette to the right leg full-thickness ulceration without incident. Predebridement measurement was 7.3 x 15.8 x 0.1 cm. Postdebridement measurement is 7.5 x 16.0 x 0.1 cm. 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[employer] ) Arrival Mode Ambulatory Transfer Assistance None Patient Identification Verified (Name & Yes ) Patient Requires Transmission-Based No Precautions Height and Weight Body Mass Index (BMI) 43.3 BMI Classification Obese Vital Signs Temperature (97.8 F-99.1 F) 98.2 F Temperature Source Temporal Pulse Rate (60-100) 102 H Pulse Location Monitor Respiratory Rate (12-18) 16 Respiratory rate source Observation Blood Pressure (90/60-120/80) 108/67 Blood Pressure Mean (mm Hg) 80 Source Monitor Position Sitting Blood Pressure Location Left Arm History Since Last Visit- (Skip if this is Patient's initial visit) Have you changed medications since your No last visit? Any new allergies or adverse reactions No Had a fall/change in ADL's that may No increase risk of falls Signs or symptoms of abuse and/or No neglect since last visit Have you been in the hospital since your No last visit? Has dressing in place as prescribed Yes Has compression in place as prescribed Yes Has offloadiing in place as prescribed N/A Experienced any changes in pain level or No management Pain Scale: 0-10 Numeric Is Patient Pain Free? Yes VARGAS - Nurse 1 - General Ulcer Measurement Start: 02/27/24 13:19 Freq: Status: Active Protocol: Activity Type Activity Date Activity User E-sign Co-sign Detail Recorded Client Recorded Date Recorded By Document 02/27/24 13:19 ML [id number] 02/27/24 13:33 ML Edit Result 02/27/24 13:19 ML (1) [id number] 02/27/24 13:37 ML (1) LEFT LATERAL LEG CLUSTER - Current Size (cm) - Length => 5 - Current Size (cm) - Width => 3 - Current Size (cm) - Depth => 0.1 - Total Square Cm => 15 - Exudate Amt => Medium - Exudate Type => Serosanguineous - Granulation Amt => Medium (34-66%) - Necrosis Amt => Medium (34-66%) - Texture (Ines-wound Skin Appearance) => Assessed - Moisture (Ines-wound Skin Appearance) => Assessed - Color (Ines-wound Skin Appearance) => Assessed - Temperature (Ines-wound Skin => No Abnormality (Pt Appearance) => Warm) - Tenderness on Palpation (Ines-wound => Yes Skin Appearance) - Ulcer Cleansing => Soap and Water - Anesthetic Used => 4% Lidocaine => Solution 02/27/24 13:19 Wound Center Nurse 1 LEFT LATERAL LEG CLUSTER -Current Size (cm) - Length 5 -Current Size (cm) - Width 3 -Current Size (cm) - Depth 0.1 -Total Square Cm 15 -Exudate Amt Medium -Exudate Type Serosanguineous -Granulation Amt Medium (34-66%) -Necrosis Amt Medium (34-66%) -Texture (Ines-wound Skin Appearance) Assessed -Moisture (Ines-wound Skin Appearance) Assessed -Color (Ines-wound Skin Appearance) Assessed -Temperature (Ines-wound Skin No Abnormality Appearance) (Pt Warm) -Tenderness on Palpation (Ines-wound Yes Skin Appearance) -Ulcer Cleansing Soap and Water -Anesthetic Used 4% Lidocaine Solution #1 right lateral leg CLUSTER -Current Size (cm) - Length 23 -Current Size (cm) - Width 6 -Current Size (cm) - Depth 0.3 -Total Square Cm 138 -Exudate Amt Medium -Exudate Type Serosanguineous -Wound Margin Distinct, Outline Attached -Granulation Amt Medium (34-66%) -Necrosis Amt Medium (34-66%) -Necrotic Tissue Type Adherent Slough -Texture (Ines-wound Skin Appearance) Assessed -Moisture (Ines-wound Skin Appearance) Assessed -Color (Ines-wound Skin Appearance) Assessed -Temperature (Ines-wound Skin No Abnormality Appearance) (Pt Warm) -Tenderness on Palpation (Ines-wound Yes Skin Appearance) -Ulcer Cleansing Soap and Water -Foul Odor after Cleansing No -Anesthetic Used 4% Lidocaine Solution Right Calf (cm) 48.5 Right Ankle (cm) 28 Left Ankle (cm) 28 Left Foot (cm) 44 WC - Nurse 2 - General Ulcer CM Notes Start: 02/27/24 13:19 Freq: Status: Active Protocol: Activity Type Activity Date Activity User E-sign Co-sign Detail Recorded Client Recorded Date Recorded By Document 02/27/24 13:51 MARIZA [id number] 02/27/24 13:54 MARIZA 02/27/24 13:51 Wound Center Nurse 2 LEFT LATERAL LEG CLUSTER -Time 13:51 -Correct Patient Yes -Correct Side, Site, Position Yes -Correct Procedure Yes -Procedure Performed Yes -Type of Procedure Debridement -Clinical Debridement Subcutaneous -Tissue Removed Subcutaneous -Post Debridement (cm) - Length 4.2 -Post Debridement (cm) - Width 7 -Post Debridement (cm) - Depth 0.1 -Total Square (Post) (cm) 29.4 -Area of Debridement (cm) - Length 4.2 -Area of Debridement (cm) - Width 7 -Total Square (Area) (cm) 29.4 -Tunneling No -Undermining/Tunneling No -Circular Undermining No -Wound/Ulcer Outcome Not Healed -Ulcer Cleansing Rinsed/ Irrigated with Saline -Foul Odor after Cleansing No -Bioengineered Tissue No -Bleeding Controlled with Pressure -Treatment Response Procedure Tolerated Well -Offloading No -Debridement - Subq, 1st 20sq cm No #1 right lateral leg CLUSTER -Time 13:52 -Correct Patient Yes -Correct Side, Site, Position Yes -Correct Procedure Yes -Procedure Performed Yes -Type of Procedure Debridement -Clinical Debridement Subcutaneous -Tissue Removed Subcutaneous -Post Debridement (cm) - Length 7.5 -Post Debridement (cm) - Width 16.0 -Post Debridement (cm) - Depth 0.1 -Total Square (Post) (cm) 120.00 -Area of Debridement (cm) - Length 7.5 -Area of Debridement (cm) - Width 16.0 -Total Square (Area) (cm) 120.00 -Tunneling No -Undermining/Tunneling No -Circular Undermining No -Wound/Ulcer Outcome Not Healed -Ulcer Cleansing Rinsed/ Irrigated with Saline -Foul Odor after Cleansing No -Bioengineered Tissue No -Bleeding Controlled with Pressure -Treatment Response Procedure Tolerated Well -Offloading No -Debridement - Subq, 1st 20sq cm Yes -Debridement, SubQ, ea addt'l 20sq cm 7 or part thereof Pain Scale: 0-10 Numeric Is Patient Pain Free? Yes - Nurse 3 - General Ulcer D/C NN Start: 02/27/24 13:19 Freq: Status: Active Protocol: Activity Type Activity Date Activity User E-sign Co-sign Detail Recorded Client Recorded Date Recorded By Document 02/27/24 13:54 MARIZA [id number] 02/27/24 13:56 MARIZA 02/27/24 13:54 Wound Care Center Nurse 3 LEFT LATERAL LEG CLUSTER -Ulcer Cleansing Rinsed/ Irrigated with Saline -Foul Odor after Cleansing No -Primary Dressing Applied Optilok 8x12, Silvercel -Coban: 2 Layer System 1 -Optilok 8x12 1 -Silvercel 1 #1 right lateral leg CLUSTER -Ulcer Cleansing Rinsed/ Irrigated with Saline -Foul Odor after Cleansing No -Primary Dressing Applied Optilok 8x12, Silvercel -Primary Dressing Covered/Secured with Dry Gauze -Coban: 2 Layer System 1 -Optilok 8x12 1 -Silvercel 1 BLE -Multi-Layered Wrap Application Multi-Layer Comp - Bilat ($ ) Pain Scale: 0-10 Numeric Is Patient Pain Free? Yes WC - Visit Discharge Discharge Condition Stable Ambulatory Status Ambulatory Transportation Private Auto Medication Reconcilliation completed & Yes provided to patient/care provider Clinical Summary of Care Provided Yes Assessment/Plan Assessment/Plan (1) Non-pressure chronic ulcer of other part of left lower leg with fat layer exposed: CODE(S): L97.822 - Non-pressure chronic ulcer of other part of left lower leg with fat layer exposed PLAN: Patient was examined and evaluated. All findings were discussed with the patient. All questions were answered to the patient's satisfaction. Excisional debridement down to and including subcutaneous tissue with a number 7 mm dermal curette to the right leg full-thickness ulceration without incident. Predebridement measurement was 7.3 x 15.8 x 0.1 cm. Postdebridement measurement is 7.5 x 16.0 x 0.1 cm. The patient's right leg was wiped clean and patted dry. The full-thickness wound to right lower extremity was dressed with silver alginate and a 3M multilayer compression bandage was donned. The left lower extremities were cleaned and patted dry. The wound was dressed with silver alginate and a 3M multilayer compression bandage was donned. Patient was instructed leave the dressing clean dry and intact do not get them wet. He will follow-up Sunday versus Sunday for nurse visit for dressing changes bilaterally. Review of the patient's ABIs/arterial studies show an PETER to the left lower extremity to be 1.33, and PETER to the right lower extremity is 1.28. These are good results for arterial blood flow and healing potential. 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 The left lower extremity venous is unremarkable at this time. Once the patient's edema is not controlled with her multilayer compression bandages will begin authorization for the patient's insurance for bilateral CircAid wraps. Follow-up at the wound care center with Dr. Quinones in 1 week. (2) Non-pressure chronic ulcer of other part of right lower leg with fat layer exposed: CODE(S): L97.812 - Non-pressure chronic ulcer of other part of right lower leg with fat layer exposed
[2024-03-03 10:23] VITALS: BP 158/75; RESP 18; TEMP 36.4; BMI 43.3
[2024-03-05 13:22] VITALS: BP 154/91; PULSE 77; RESP 18; TEMP 36.7; BMI 43.3
--- NOTE | 2024-03-05 14:42 | PN.PCM_ITS ---
History of Present Illness Date of Service: 03/05/24 Chief Complaint: Right leg ulceration History of Wound: Right leg ulceration Subjective Subjective Mr. Meneses is a 58-year-old male presented wound care center today for follow-up evaluation of bilateral venous stasis ulceration. He has been compliant with keeping his dressing clean dry and intact. He does follow-up for his nursing visits for evaluation and new dressing/dressing changes. He admits to pain when at rest but is okay while at work. He denies any new onset of trauma. He denies strikethrough to dressing. Denies constitutional symptoms. No other pedal complaints at this time. Objective Data Objective Data Vital Signs: Vital Signs Temp Pulse Resp BP O2 Del Method 98.1 F 77 18 154/91 H Room Air 03/05/24 13:22 03/05/24 13:22 03/05/24 13:22 03/05/24 13:22 03/05/24 13:22 Oxygen Delivery Method Room Air Weight: 129.274 kg Body Mass Index (BMI) 43.3 Physical Exam Narrative Vascular: DP and PT pulse are faintly palpable secondary to edema. CFT is brisk. Erythema improving to the right lower extremity. Skin temperature gradient is warm to warm from proximal ankles to distal digit. No focal warmth is appreciated left lower extremity. +1 pitting edema bilateral. Neurological: Light touch intact. Patient does respond to painful stimuli. Dermatological: Full-thickness ulceration to the right leg measuring 7.5 x 15.5 x 0.1 cm. The wound base to the right leg is fibrogranular in nature. Drainage has improved. No malodor. Negative probe to bone bilateral. Full-thickness wound to the left leg measuring 3.7 x 7.5 x 0.1 cm. Wound base is granular with no sign of infection or drainage. Excisional debridement down to and including subcutaneous tissue with a number 7 mm dermal curette to the right leg full-thickness ulceration without incident. Predebridement measurement was 7.2 x 15.2 x 0.1 cm. Postdebridement measurement is 7.5 x 15.5 x 0.1 cm. Excisional debridement down to including subcutaneous tissue with a number 7 mm dermal curette to the left leg full-thickness ulceration with a center. Predebridement measurement was 3.5 x 7.2 x 0.1 cm. Post right measurement is 3.7 x 7.5 x 0.1 cm. Musculoskeletal: Muscle strength is 5 out of 5 in all quadrants bilateral. Mild to moderate palpatory tenderness appreciated to the right and left leg. No pain with calf compression bilateral. Debridement Note Debridement Note Debridement Free Text: Excisional debridement down to and including subcutaneous tissue with a number 7 mm dermal curette to the right leg full-thickness ulceration without incident. Predebridement measurement was 7.2 x 15.2 x 0.1 cm. Postdebridement measurement is 7.5 x 15.5 x 0.1 cm. Excisional debridement down to including subcutaneous tissue with a number 7 mm dermal curette to the left leg full-thickness ulceration with a center. Predebridement measurement was 3.5 x 7.2 x 0.1 cm. Post right measurement is 3.7 x 7.5 x 0.1 cm. 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 LAW ATTORNEY Visit (Physician/EMPLOYMENT LAW ATTORNEY ) ) Arrival Mode Ambulatory Ambulatory Ambulatory Transfer Assistance None Patient Identification Verified (Name & Yes Yes Yes ) Patient Requires Transmission-Based No No Precautions Safety Precautions Fall Prevention Height and Weight Body Mass Index (BMI) 43.3 43.3 43.3 BMI Classification Obese Obese Obese Vital Signs Temperature (97.8 F-99.1 F) 98.2 F 97.5 F L 98.1 F Temperature Source Temporal Temporal Temporal Pulse Rate (60-100) 102 H 77 Pulse Location Monitor Monitor Monitor Respiratory Rate (12-18) 16 18 18 Respiratory rate source Observation Observation Observation Oxygen Delivery Method Room Air Room Air Blood Pressure (90/60-120/80) 108/67 158/75 H 154/91 H Blood Pressure Mean (mm Hg) 80 102 112 Source Monitor Monitor Monitor Position Sitting Semi-Fowlers Sitting Blood Pressure Location Left Arm Left Arm Left Arm History Since Last Visit- (Skip if this is Patient's initial visit) Have you changed medications since your No No No last visit? Any new allergies or adverse reactions No No No Had a fall/change in ADL's that may No No No increase risk of falls Signs or symptoms of abuse and/or No No No neglect since last visit Have you been in the hospital since your No No No last visit? Has dressing in place as prescribed Yes Yes Yes Has compression in place as prescribed Yes N/A Yes Has offloadiing in place as prescribed N/A N/A N/A Experienced any changes in pain level or No No No management Left Footwear Regular Shoe Regular Shoe Right Footwear Regular Shoe Regular Shoe Pain Scale: 0-10 Numeric Is Patient Pain Free? Yes Yes No bl lower legs -Description Sharp,Throbbing ,Burning,Aching -Intensity 8 -Duration (hours) Chronic -Pain Aggravating Factors Changing Position -Alleviating Factors/Interventions Will continue to monitor, Emotional Support WC - Nurse 1 - General Ulcer Measurement Start: 02/27/24 13:19 Freq: Status: Active Protocol: Activity Type Activity Date Activity User E-sign Co-sign Detail Recorded Client Recorded Date Recorded By Document 02/27/24 13:19 ML [id number] 02/27/24 13:33 ML Edit Result 02/27/24 13:19 ML (1) [id number] 02/27/24 13:37 ML Document 03/05/24 13:22 DS [id number] 03/05/24 13:42 DS (1) LEFT LATERAL LEG CLUSTER - Current Size (cm) - Length => 5 - Current Size (cm) - Width => 3 - Current Size (cm) - Depth => 0.1 - Total Square Cm => 15 - Exudate Amt => Medium - Exudate Type => Serosanguineous - Granulation Amt => Medium (34-66%) - Necrosis Amt => Medium (34-66%) - Texture (Ines-wound Skin Appearance) => Assessed - Moisture (Ines-wound Skin Appearance) => Assessed - Color (Ines-wound Skin Appearance) => Assessed - Temperature (Ines-wound Skin => No Abnormality (Pt Appearance) => Warm) - Tenderness on Palpation (Ines-wound => Yes Skin Appearance) - Ulcer Cleansing => Soap and Water - Anesthetic Used => 4% Lidocaine => Solution 02/27/24 03/05/24 13:19 13:22 Wound Center Nurse 1 LEFT LATERAL LEG CLUSTER -Current Size (cm) - Length 5 15.0 -Current Size (cm) - Width 3 3.0 -Current Size (cm) - Depth 0.1 0.2 -Total Square Cm 15 45.00 -Tunneling No -Undermining/Tunneling No -Circular Undermining No -Exudate Amt Medium Medium -Exudate Type Serosanguineous Serosanguineous -Wound Margin Distinct, Outline Attached -Granulation Amt Medium (34-66%) Small (1-33%) -Granulation [place] -Necrosis Amt Medium (34-66%) Large (67-100%) -Necrotic Tissue Type Adherent Slough -Texture (Ines-wound Skin Appearance) Assessed Assessed -Moisture (Ines-wound Skin Appearance) Assessed Assessed -Color (Ines-wound Skin Appearance) Assessed Assessed -Temperature (Ines-wound Skin No Abnormality No Abnormality Appearance) (Pt Warm) (Pt Warm) -Tenderness on Palpation (Ines-wound Yes No Skin Appearance) -Ulcer Cleansing Soap and Water Soap and Water -Foul Odor after Cleansing No -Anesthetic Used 4% Lidocaine 5% Lidocaine Solution Gel #1 right lateral leg CLUSTER -Current Size (cm) - Length 23 19.5 -Current Size (cm) - Width 6 9.0 -Current Size (cm) - Depth 0.3 0.2 -Total Square Cm 138 175.50 -Tunneling No -Undermining/Tunneling No -Circular Undermining No -Exudate Amt Medium Medium -Exudate Type Serosanguineous Serosanguineous -Wound Margin Distinct, Distinct, Outline Outline Attached Attached -Granulation Amt Medium (34-66%) Small (1-33%) -Granulation [place] -Necrosis Amt Medium (34-66%) Large (67-100%) -Necrotic Tissue Type Adherent Slough Adherent Slough -Texture (Ines-wound Skin Appearance) Assessed Assessed -Moisture (Ines-wound Skin Appearance) Assessed Assessed -Color (Ines-wound Skin Appearance) Assessed Assessed -Temperature (Ines-wound Skin No Abnormality No Abnormality Appearance) (Pt Warm) (Pt Warm) -Tenderness on Palpation (Ines-wound Yes No Skin Appearance) -Ulcer Cleansing Soap and Water Soap and Water -Foul Odor after Cleansing No No -Anesthetic Used 4% Lidocaine 5% Lidocaine Solution Gel Right Calf (cm) 48.5 45.5 Right Ankle (cm) 28 31.0 Left Calf (cm) 46.2 Left Ankle (cm) 28 30.0 Left Foot (cm) 44 WC - Nurse 2 - General Ulcer CM Notes Start: 02/27/24 13:19 Freq: Status: Active Protocol: Activity Type Activity Date Activity User E-sign Co-sign Detail Recorded Client Recorded Date Recorded By Document 02/27/24 13:51 [id number] 02/27/24 13:54 Document 03/05/24 13:47 [id number] 03/05/24 13:52 02/27/24 03/05/24 13:51 13:47 Wound Center Nurse 2 LEFT LATERAL LEG CLUSTER -Time 13:51 13:48 -Correct Patient Yes Yes -Correct Side, Site, Position Yes Yes -Correct Procedure Yes Yes -Procedure Performed Yes Yes -Type of Procedure Debridement Debridement -Clinical Debridement Subcutaneous Subcutaneous -Tissue Removed Subcutaneous Subcutaneous -Post Debridement (cm) - Length 4.2 3.7 -Post Debridement (cm) - Width 7 7.5 -Post Debridement (cm) - Depth 0.1 0.1 -Total Square (Post) (cm) 29.4 27.75 -Area of Debridement (cm) - Length 4.2 3.7 -Area of Debridement (cm) - Width 7 7.5 -Total Square (Area) (cm) 29.4 27.75 -Tunneling No No -Undermining/Tunneling No No -Circular Undermining No No -Wound/Ulcer Outcome Not Healed Not Healed -Ulcer Cleansing Rinsed/ Rinsed/ Irrigated with Irrigated with Saline Saline -Foul Odor after Cleansing No No -Bioengineered Tissue No No -Bleeding Controlled with Pressure Pressure -Treatment Response Procedure Procedure Tolerated Well Tolerated Well -Offloading No No -Debridement - Subq, 1st 20sq cm No Yes -Debridement, SubQ, ea addt'l 20sq cm 7 or part thereof #1 right lateral leg CLUSTER -Time 13:52 13:49 -Correct Patient Yes Yes -Correct Side, Site, Position Yes Yes -Correct Procedure Yes Yes -Procedure Performed Yes Yes -Type of Procedure Debridement Debridement -Clinical Debridement Subcutaneous Subcutaneous -Tissue Removed Subcutaneous -Post Debridement (cm) - Length 7.5 7.5 -Post Debridement (cm) - Width 16.0 15.5 -Post Debridement (cm) - Depth 0.1 0.1 -Total Square (Post) (cm) 120.00 116.25 -Area of Debridement (cm) - Length 7.5 7.5 -Area of Debridement (cm) - Width 16.0 15.5 -Total Square (Area) (cm) 120.00 116.25 -Tunneling No No -Undermining/Tunneling No No -Circular Undermining No No -Wound/Ulcer Outcome Not Healed Not Healed -Ulcer Cleansing Rinsed/ Rinsed/ Irrigated with Irrigated with Saline Saline -Foul Odor after Cleansing No No -Bioengineered Tissue No No -Bleeding Controlled with Pressure Pressure -Treatment Response Procedure Procedure Tolerated Well Tolerated Well -Offloading No No -Debridement - Subq, 1st 20sq cm Yes No -Debridement, SubQ, ea addt'l 20sq cm 7 or part thereof Pain Scale: 0-10 Numeric Is Patient Pain Free? Yes Yes - Nurse 3 - General Ulcer D/C NN Start: 02/27/24 13:19 Freq: Status: Active Protocol: Activity Type Activity Date Activity User E-sign Co-sign Detail Recorded Client Recorded Date Recorded By Document 02/27/24 13:54 [id number] 02/27/24 13:56 Document 03/03/24 10:23 KW [id number] 03/03/24 10:54 KW Document 03/05/24 14:06 CP [id number] 03/05/24 14:07 CP 02/27/24 03/03/24 03/05/24 13:54 10:23 14:06 Wound Care Center Nurse 3 LEFT LATERAL LEG CLUSTER -Ulcer Cleansing Rinsed/ Soap and Water Irrigated with Saline -Foul Odor after Cleansing No -Primary Dressing Applied Optilok 8x12, Optilok 8x12, Silvercel Silvercel Silvercel -Primary Dressing Covered/Secured with Dry Gauze & Dry Gauze & Roll Gauze, Roll Gauze, Secured with Secured with Tape Tape -Coban: 2 Layer System 1 -Optilok 8x12 1 1 -Silvercel 1 1 1 #1 right lateral leg CLUSTER -Ulcer Cleansing Rinsed/ Soap and Water Irrigated with Saline -Foul Odor after Cleansing No -Primary Dressing Applied Optilok 8x12, Optilok 8x12 Silvercel -Other Dressing silvercel silvercel -Primary Dressing Covered/Secured with Dry Gauze Dry Gauze & Dry Gauze & Roll Gauze, Roll Gauze, Secured with Secured with Tape Tape -Coban: 2 Layer System 1 -Optilok 8x12 1 1 -Silvercel 1 BLE -Multi-Layered Wrap Application Multi-Layer Multi-Layer Multi-Layer Comp - Bilat ($ Comp - Bilat ($ Comp - Bilat ($ ) ) ) Vital Signs Temperature (97.8 F-99.1 F) 97.5 F L Temperature Source Temporal Pulse Location Monitor Respiratory Rate (12-18) 18 Respiratory rate source Observation Oxygen Delivery Method Room Air Blood Pressure (90/60-120/80) 158/75 H Blood Pressure Mean (mm Hg) 102 Source Monitor Position Semi-Fowlers Blood Pressure Location Left Arm Pain Scale: 0-10 Numeric Is Patient Pain Free? Yes Yes Yes WC - Visit Discharge Discharge Condition Stable Stable Stable Ambulatory Status Ambulatory Ambulatory Ambulatory Transportation Private Auto Private Auto Private Auto Medication Reconcilliation completed & Yes No No provided to patient/care provider Clinical Summary of Care Provided Yes Yes Yes Assessment/Plan Assessment/Plan (1) Non-pressure chronic ulcer of other part of left lower leg with fat layer exposed: CODE(S): L97.822 - Non-pressure chronic ulcer of other part of left lower leg with fat layer exposed PLAN: Patient was examined and evaluated. All findings were discussed with the patient. All questions were answered to the patient's satisfaction. Excisional debridement down to and including subcutaneous tissue with a number 7 mm dermal curette to the right leg full-thickness ulceration without incident. Predebridement measurement was 7.2 x 15.2 x 0.1 cm. Postdebridement measurement is 7.5 x 15.5 x 0.1 cm. Excisional debridement down to including subcutaneous tissue with a number 7 mm dermal curette to the left leg full-thickness ulceration with a center. Predebridement measurement was 3.5 x 7.2 x 0.1 cm. Post right measurement is 3.7 x 7.5 x 0.1 cm. The bilateral lower extremities are like cleaned and patted dry. Several alginate was applied to all full-thickness ulceration bilateral, and multilayer compression bandages were donned to the bilateral lower extremity. Educated the patient continue to rest and elevate his feet whenever opportunity he has. Patient will be placed on oxycodone 5 mg every 6 hours for 7 days secondary to increasing right leg pain, with no additional refills. Once the patient swelling has improved we will begin authorization for Amio skin graft substitute to right lower extremity to increase healing at the beginning of the year. Follow-up at the wound care center with Dr. Quinones in 1 week. (2) Non-pressure chronic ulcer of other part of right lower leg with fat layer exposed: CODE(S): L97.812 - Non-pressure chronic ulcer of other part of right lower leg with fat layer exposed
[2024-03-10 15:34] VITALS: BP 135/76; PULSE 82; RESP 16; TEMP 36.2; BMI 43.3
[2024-03-12 13:16] VITALS: BP 129/80; PULSE 108; RESP 20; TEMP 36.9; BMI 43.3
--- NOTE | 2024-03-12 13:43 | PCM.WC.PN ---
History of Present Illness Date of Service: 03/12/24 Chief Complaint: Right leg ulceration History of Wound: Right leg ulceration Subjective Subjective Mr Meneses is a 58-year-old male presenting with [facility] today follow-up evaluation of full-thickness wound to the bilateral extremity. He has been compliant with his 3M multilayer compression wraps. He continues to rest and elevate as instructed. He is taking his Neurontin as prescribed. He is doing well. He denies any pain to the right lower extremity except with debridement. Denies trauma. Denies constitutional symptoms. No other pedal complaints at this time. Objective Data Objective Data Vital Signs: Vital Signs Temp Pulse Resp BP O2 Del Method 98.4 F 108 H 20 H 129/80 H Room Air 03/12/24 13:16 03/12/24 13:16 03/12/24 13:16 03/12/24 13:16 03/10/24 15:34 Oxygen Delivery Method Room Air Weight: 129.274 kg Body Mass Index (BMI) 43.3 Physical Exam Narrative Vascular: DP and PT pulse are faintly palpable secondary to edema. CFT is brisk. Erythema improving to the right lower extremity. Skin temperature gradient is warm to warm from proximal ankles to distal digit. No focal warmth is appreciated left lower extremity. +1 pitting edema bilateral, improving. Neurological: Light touch intact. Patient does respond to painful stimuli. Dermatological: Full-thickness ulceration to the right leg measuring 8.1 x 9.0 x 0.1 cm. The wound base to the right leg is fibrogranular in nature. Drainage has improved. No malodor. Negative probe to bone bilateral. Full-thickness wound to the left leg measuring 3.1 x 6.8 x 0.1 cm. Wound base is granular with no sign of infection or drainage. Excisional debridement down to and including subcutaneous tissue with a number 7 mm dermal curette to the right leg full-thickness ulceration without incident. Predebridement measurement was 7.8 x 8.8 x 0.1 cm. Postdebridement measurement is 8.1 x 9.0 x 0.1 cm. Excisional debridement down to including subcutaneous tissue with a number 7 mm dermal curette to the left leg full-thickness ulceration with a center. Predebridement measurement was 3.0 x 6.5 x 0.1 cm. Post debridement measurement is 3.1 x 6.8 x 0.1 cm. Musculoskeletal: Muscle strength is 5 out of 5 in all quadrants bilateral. Mild to moderate palpatory tenderness appreciated to the right and left leg. No pain with calf compression bilateral. Debridement Note Debridement Note Debridement Free Text: Excisional debridement down to and including subcutaneous tissue with a number 7 mm dermal curette to the right leg full-thickness ulceration without incident. Predebridement measurement was 7.8 x 8.8 x 0.1 cm. Postdebridement measurement is 8.1 x 9.0 x 0.1 cm. Excisional debridement down to including subcutaneous tissue with a number 7 mm dermal curette to the left leg full-thickness ulceration with a center. Predebridement measurement was 3.0 x 6.5 x 0.1 cm. Post debridement measurement is 3.1 x 6.8 x 0.1 cm. Post-Debridement Measurements and Additional Note: Post-Debridement Measurements/Treatment WC - Nurse 1 - General Ulcer Assessment Start: 02/27/24 13:19 Freq: Status: Active Protocol: TERENCE Activity Type Activity Date Activity User E-sign Co-sign Detail Recorded Client Recorded Date Recorded By Document 02/27/24 13:19 ML [id number] 02/27/24 13:33 ML Document 03/03/24 10:23 KW [id number] 03/03/24 10:54 KW Document 03/05/24 13:22 DS [id number] 03/05/24 13:42 DS Document 03/10/24 15:34 BMF [id number] 03/10/24 15:36 BMF Document 03/12/24 13:16 DL [id number] 03/12/24 13:27 DL 02/27/24 03/03/24 03/05/24 13:19 10:23 13:22 - Today's Visit Information Type of service Follow-up Visit Nurse-only Follow-up Visit (Physician/BOX CAR WASHER Visit (Physician/BOX CAR WASHER ) ) Arrival Mode Ambulatory Ambulatory Ambulatory Transfer Assistance None Patient Identification Verified (Name & Yes Yes Yes ) Patient Requires Transmission-Based No No Precautions Safety Precautions Fall Prevention Height and Weight Body Mass Index (BMI) 43.3 43.3 43.3 BMI Classification Obese Obese Obese Vital Signs Temperature (97.8 F-99.1 F) 98.2 F 97.5 F L 98.1 F Temperature Source Temporal Temporal Temporal Pulse Rate (60-100) 102 H 77 Pulse Location Monitor Monitor Monitor Respiratory Rate (12-18) 16 18 18 Respiratory rate source Observation Observation Observation Oxygen Delivery Method Room Air Room Air Blood Pressure (90/60-120/80) 108/67 158/75 H 154/91 H Blood Pressure Mean (mm Hg) 80 102 112 Source Monitor Monitor Monitor Position Sitting Semi-Fowlers Sitting Blood Pressure Location Left Arm Left Arm Left Arm History Since Last Visit- (Skip if this is Patient's initial visit) Have you changed medications since your No No No last visit? Any new allergies or adverse reactions No No No Had a fall/change in ADL's that may No No No increase risk of falls Signs or symptoms of abuse and/or No No No neglect since last visit Have you been in the hospital since your No No No last visit? Has dressing in place as prescribed Yes Yes Yes Has compression in place as prescribed Yes N/A Yes Has offloadiing in place as prescribed N/A N/A N/A Experienced any changes in pain level or No No No management Left Footwear Regular Shoe Regular Shoe Right Footwear Regular Shoe Regular Shoe Pain Scale: 0-10 Numeric Is Patient Pain Free? Yes Yes No bl lower legs -Description Sharp,Throbbing ,Burning,Aching -Intensity 8 -Duration (hours) Chronic -Pain Aggravating Factors Changing Position -Alleviating Factors/Interventions Will continue to monitor, Emotional Support 03/10/24 03/12/24 15:34 13:16 WC - Today's Visit Information Type of service Nurse-only Follow-up Visit Visit (Physician/BOX CAR WASHER ) Arrival Mode Ambulatory Ambulatory Transfer Assistance None None Patient Identification Verified (Name & Yes Yes ) Patient Requires Transmission-Based No No Precautions Safety Precautions Height and Weight Body Mass Index (BMI) 43.3 43.3 BMI Classification Obese Obese Vital Signs Temperature (97.8 F-99.1 F) 97.2 F L 98.4 F Temperature Source Temporal Temporal Pulse Rate (60-100) 82 108 H Pulse Location Monitor Monitor Respiratory Rate (12-18) 16 20 H Respiratory rate source Observation Observation Oxygen Delivery Method Room Air Blood Pressure (90/60-120/80) 135/76 H 129/80 H Blood Pressure Mean (mm Hg) 95 96 Source Monitor Monitor Position Sitting Blood Pressure Location Left Arm History Since Last Visit- (Skip if this is Patient's initial visit) Have you changed medications since your No No last visit? Any new allergies or adverse reactions No No Had a fall/change in ADL's that may No No increase risk of falls Signs or symptoms of abuse and/or No No neglect since last visit Have you been in the hospital since your No No last visit? Has dressing in place as prescribed Yes Yes Has compression in place as prescribed Yes Yes Has offloadiing in place as prescribed N/A N/A Experienced any changes in pain level or No Yes management Left Footwear Regular Shoe Right Footwear Regular Shoe Pain Scale: 0-10 Numeric Is Patient Pain Free? Yes Yes bl lower legs -Description -Intensity -Duration (hours) -Pain Aggravating Factors -Alleviating Factors/Interventions WC - Nurse 1 - General Ulcer Measurement Start: 02/27/24 13:19 Freq: Status: Active Protocol: Activity Type Activity Date Activity User E-sign Co-sign Detail Recorded Client Recorded Date Recorded By Document 02/27/24 13:19 ML [id number] 02/27/24 13:33 ML Edit Result 02/27/24 13:19 ML (1) [id number] 02/27/24 13:37 ML Document 03/05/24 13:22 DS [id number] 03/05/24 13:42 DS Document 03/10/24 15:34 BMF [id number] 03/10/24 15:36 BMF Document 03/12/24 13:16 DL [id number] 03/12/24 13:27 DL (1) LEFT LATERAL LEG CLUSTER - Current Size (cm) - Length => 5 - Current Size (cm) - Width => 3 - Current Size (cm) - Depth => 0.1 - Total Square Cm => 15 - Exudate Amt => Medium - Exudate Type => Serosanguineous - Granulation Amt => Medium (34-66%) - Necrosis Amt => Medium (34-66%) - Texture (Ines-wound Skin Appearance) => Assessed - Moisture (Ines-wound Skin Appearance) => Assessed - Color (Ines-wound Skin Appearance) => Assessed - Temperature (Ines-wound Skin => No Abnormality (Pt Appearance) => Warm) - Tenderness on Palpation (Ines-wound => Yes Skin Appearance) - Ulcer Cleansing => Soap and Water - Anesthetic Used => 4% Lidocaine => Solution 02/27/24 03/05/24 03/10/24 13:19 13:22 15:34 Wound Center Nurse 1 LEFT LATERAL LEG CLUSTER -Current Size (cm) - Length 5 15.0 -Current Size (cm) - Width 3 3.0 -Current Size (cm) - Depth 0.1 0.2 -Total Square Cm 15 45.00 -Tunneling No -Undermining/Tunneling No -Circular Undermining No -Exudate Amt Medium Medium -Exudate Type Serosanguineous Serosanguineous -Wound Margin Distinct, Outline Attached -Granulation Amt Medium (34-66%) Small (1-33%) -Granulation Quality [place] -Necrosis Amt Medium (34-66%) Large (67-100%) -Necrotic Tissue Type Adherent Slough -Structure Exposed -Texture (Ines-wound Skin Appearance) Assessed Assessed -Moisture (Ines-wound Skin Appearance) Assessed Assessed -Color (Ines-wound Skin Appearance) Assessed Assessed -Temperature (Ines-wound Skin No Abnormality No Abnormality Appearance) (Pt Warm) (Pt Warm) -Tenderness on Palpation (Ines-wound Yes No Skin Appearance) -Ulcer Cleansing Soap and Water Soap and Water -Foul Odor after Cleansing No -Anesthetic Used 4% Lidocaine 5% Lidocaine Solution Gel #1 right lateral leg CLUSTER -Current Size (cm) - Length 23 19.5 -Current Size (cm) - Width 6 9.0 -Current Size (cm) - Depth 0.3 0.2 -Total Square Cm 138 175.50 -Tunneling No -Undermining/Tunneling No -Circular Undermining No -Exudate Amt Medium Medium -Exudate Type Serosanguineous Serosanguineous -Wound Margin Distinct, Distinct, Outline Outline Attached Attached -Granulation Amt Medium (34-66%) Small (1-33%) -Granulation Quality [place] -Necrosis Amt Medium (34-66%) Large (67-100%) -Necrotic Tissue Type Adherent Slough Adherent Slough -Structure Exposed -Texture (Ines-wound Skin Appearance) Assessed Assessed -Moisture (Ines-wound Skin Appearance) Assessed Assessed -Color (Ines-wound Skin Appearance) Assessed Assessed -Temperature (Ines-wound Skin No Abnormality No Abnormality Appearance) (Pt Warm) (Pt Warm) -Tenderness on Palpation (Ines-wound Yes No Skin Appearance) -Ulcer Cleansing Soap and Water Soap and Water -Foul Odor after Cleansing No No -Anesthetic Used 4% Lidocaine 5% Lidocaine Solution Gel Lower Limb Edema Present Yes Right Calf (cm) 48.5 45.5 44.4 Right Ankle (cm) 28 31.0 28.9 Left Calf (cm) 46.2 44.8 Left Ankle (cm) 28 30.0 29 Left Foot (cm) 44 03/12/24 13:16 Wound Center Nurse 1 LEFT LATERAL LEG CLUSTER -Current Size (cm) - Length 4 -Current Size (cm) - Width 13 -Current Size (cm) - Depth 0.1 -Total Square Cm 52 -Tunneling -Undermining/Tunneling -Circular Undermining -Exudate Amt Medium -Exudate Type Serosanguineous -Wound Margin Distinct, Outline Attached -Granulation Amt Medium (34-66%) -Granulation Quality [place] -Necrosis Amt Medium (34-66%) -Necrotic Tissue Type Adherent Slough -Structure Exposed N/A -Texture (Ines-wound Skin Appearance) Scarring -Moisture (Ines-wound Skin Appearance) No Abnormality -Color (Ines-wound Skin Appearance) Hemosiderin Staining -Temperature (Ines-wound Skin No Abnormality Appearance) (Pt Warm) -Tenderness on Palpation (Ines-wound Skin Appearance) -Ulcer Cleansing Soap and Water -Foul Odor after Cleansing No -Anesthetic Used 4% Lidocaine Solution #1 right lateral leg CLUSTER -Current Size (cm) - Length 7.6 -Current Size (cm) - Width 5.5 -Current Size (cm) - Depth 0.1 -Total Square Cm 41.80 -Tunneling -Undermining/Tunneling -Circular Undermining -Exudate Amt Medium -Exudate Type Serosanguineous -Wound Margin Distinct, Outline Attached -Granulation Amt Medium (34-66%) -Granulation Quality Red -Necrosis Amt Medium (34-66%) -Necrotic Tissue Type Adherent Slough -Structure Exposed N/A -Texture (Ines-wound Skin Appearance) Scarring -Moisture (Ines-wound Skin Appearance) Dry/Scaly -Color (Ines-wound Skin Appearance) Hemosiderin Staining -Temperature (Ines-wound Skin No Abnormality Appearance) (Pt Warm) -Tenderness on Palpation (Ines-wound No Skin Appearance) -Ulcer Cleansing Soap and Water -Foul Odor after Cleansing No -Anesthetic Used 4% Lidocaine Solution Lower Limb Edema Present Right Calf (cm) 44.2 Right Ankle (cm) 28.5 Left Calf (cm) 44.5 Left Ankle (cm) 29.6 Left Foot (cm) WC - Nurse 2 - General Ulcer CM Notes Start: 02/27/24 13:19 Freq: Status: Active Protocol: Activity Type Activity Date Activity User E-sign Co-sign Detail Recorded Client Recorded Date Recorded By Document 02/27/24 13:51 [id number] 02/27/24 13:54 Document 03/05/24 13:47 [id number] 03/05/24 13:52 Document 03/12/24 13:33 [id number] 03/12/24 13:35 02/27/24 03/05/24 03/12/24 13:51 13:47 13:33 Wound Center Nurse 2 LEFT LATERAL LEG CLUSTER -Time 13:51 13:48 13:34 -Correct Patient Yes Yes Yes -Correct Side, Site, Position Yes Yes Yes -Correct Procedure Yes Yes Yes -Procedure Performed Yes Yes Yes -Type of Procedure Debridement Debridement Debridement -Clinical Debridement Subcutaneous Subcutaneous Subcutaneous -Tissue Removed Subcutaneous Subcutaneous Subcutaneous -Post Debridement (cm) - Length 4.2 3.7 6.8 -Post Debridement (cm) - Width 7 7.5 3.1 -Post Debridement (cm) - Depth 0.1 0.1 0.1 -Total Square (Post) (cm) 29.4 27.75 21.08 -Area of Debridement (cm) - Length 4.2 3.7 6.8 -Area of Debridement (cm) - Width 7 7.5 3.1 -Total Square (Area) (cm) 29.4 27.75 21.08 -Tunneling No No No -Undermining/Tunneling No No No -Circular Undermining No No No -Wound/Ulcer Outcome Not Healed Not Healed Not Healed -Ulcer Cleansing Rinsed/ Rinsed/ Rinsed/ Irrigated with Irrigated with Irrigated with Saline Saline Saline -Foul Odor after Cleansing No No No -Bioengineered Tissue No No No -Bleeding Controlled with Pressure Pressure Pressure -Treatment Response Procedure Procedure Procedure Tolerated Well Tolerated Well Tolerated Well -Offloading No No No -Debridement - Subq, 1st 20sq cm No Yes No -Debridement, SubQ, ea addt'l 20sq cm 7 or part thereof #1 right lateral leg CLUSTER -Time 13:52 13:49 13:34 -Correct Patient Yes Yes Yes -Correct Side, Site, Position Yes Yes Yes -Correct Procedure Yes Yes Yes -Procedure Performed Yes Yes Yes -Type of Procedure Debridement Debridement Debridement -Clinical Debridement Subcutaneous Subcutaneous Subcutaneous -Tissue Removed Subcutaneous Subcutaneous -Post Debridement (cm) - Length 7.5 7.5 8.1 -Post Debridement (cm) - Width 16.0 15.5 9 -Post Debridement (cm) - Depth 0.1 0.1 0.1 -Total Square (Post) (cm) 120.00 116.25 72.9 -Area of Debridement (cm) - Length 7.5 7.5 8.1 -Area of Debridement (cm) - Width 16.0 15.5 9 -Total Square (Area) (cm) 120.00 116.25 72.9 -Tunneling No No No -Undermining/Tunneling No No No -Circular Undermining No No No -Wound/Ulcer Outcome Not Healed Not Healed Not Healed -Ulcer Cleansing Rinsed/ Rinsed/ Rinsed/ Irrigated with Irrigated with Irrigated with Saline Saline Saline -Foul Odor after Cleansing No No No -Bioengineered Tissue No No No -Bleeding Controlled with Pressure Pressure Pressure -Treatment Response Procedure Procedure Procedure Tolerated Well Tolerated Well Tolerated Well -Offloading No No No -Debridement - Subq, 1st 20sq cm Yes No Yes -Debridement, SubQ, ea addt'l 20sq cm 7 4 or part thereof Pain Scale: 0-10 Numeric Is Patient Pain Free? Yes Yes Yes WC - Nurse 3 - General Ulcer D/C NN Start: 02/27/24 13:19 Freq: Status: Active Protocol: Activity Type Activity Date Activity User E-sign Co-sign Detail Recorded Client Recorded Date Recorded By Document 02/27/24 13:54 JF [id number] 02/27/24 13:56 JF Document 03/03/24 10:23 KW [id number] 03/03/24 10:54 KW Document 03/05/24 14:06 CP [id number] 03/05/24 14:07 CP Document 03/10/24 15:34 BM [id number] 03/10/24 15:36 BMF 02/27/24 03/03/24 03/05/24 13:54 10:23 14:06 Wound Care Center Nurse 3 LEFT LATERAL LEG CLUSTER -Ulcer Cleansing Rinsed/ Soap and Water Irrigated with Saline -Foul Odor after Cleansing No -Primary Dressing Applied Optilok 8x12, Optilok 8x12, Silvercel Silvercel Silvercel -Primary Dressing Covered/Secured with Dry Gauze & Dry Gauze & Roll Gauze, Roll Gauze, Secured with Secured with Tape Tape -Coban: 2 Layer System 1 -Optilok 8x12 1 1 -Silvercel 1 1 1 #1 right lateral leg CLUSTER -Ulcer Cleansing Rinsed/ Soap and Water Irrigated with Saline -Foul Odor after Cleansing No -Primary Dressing Applied Optilok 8x12, Optilok 8x12 Silvercel -Other Dressing silvercel silvercel -Primary Dressing Covered/Secured with Dry Gauze Dry Gauze & Dry Gauze & Roll Gauze, Roll Gauze, Secured with Secured with Tape Tape -Coban: 2 Layer System 1 -Optilok 8x12 1 1 -Silvercel 1 BLE -Multi-Layered Wrap Application Multi-Layer Multi-Layer Multi-Layer Comp - Bilat ($ Comp - Bilat ($ Comp - Bilat ($ ) ) ) Treatment Response Vital Signs Temperature (97.8 F-99.1 F) 97.5 F L Temperature Source Temporal Pulse Rate (60-100) Pulse Location Monitor Respiratory Rate (12-18) 18 Respiratory rate source Observation Oxygen Delivery Method Room Air Blood Pressure (90/60-120/80) 158/75 H Blood Pressure Mean (mm Hg) 102 Source Monitor Position Semi-Fowlers Blood Pressure Location Left Arm Pain Scale: 0-10 Numeric Is Patient Pain Free? Yes Yes Yes WC - Visit Discharge Discharge Condition Stable Stable Stable Ambulatory Status Ambulatory Ambulatory Ambulatory Transportation Private Auto Private Auto Private Auto Medication Reconcilliation completed & Yes No No provided to patient/care provider Clinical Summary of Care Provided Yes Yes Yes 03/10/24 15:34 Wound Care Center Nurse 3 LEFT LATERAL LEG CLUSTER -Ulcer Cleansing -Foul Odor after Cleansing -Primary Dressing Applied Optilok 8x12, Silvercel -Primary Dressing Covered/Secured with Dry Gauze & Roll Gauze, Secured with Tape -Coban: 2 Layer System -Optilok 8x12 1 -Silvercel 1 #1 right lateral leg CLUSTER -Ulcer Cleansing Soap and Water -Foul Odor after Cleansing No -Primary Dressing Applied Optilok 8x12, Silvercel -Other Dressing -Primary Dressing Covered/Secured with Dry Gauze & Roll Gauze, Secured with Tape -Coban: 2 Layer System -Optilok 8x12 1 -Silvercel 1 BLE -Multi-Layered Wrap Application Multi-Layer Comp - Bilat ($ ) Treatment Response Procedure Tolerated Well Vital Signs Temperature (97.8 F-99.1 F) 97.2 F L Temperature Source Temporal Pulse Rate (60-100) 82 Pulse Location Monitor Respiratory Rate (12-18) 16 Respiratory rate source Observation Oxygen Delivery Method Room Air Blood Pressure (90/60-120/80) 135/76 H Blood Pressure Mean (mm Hg) 95 Source Monitor Position Sitting Blood Pressure Location Left Arm Pain Scale: 0-10 Numeric Is Patient Pain Free? Yes WC - Visit Discharge Discharge Condition Stable Ambulatory Status Ambulatory Transportation Private Auto Medication Reconcilliation completed & provided to patient/care provider Clinical Summary of Care Provided Assessment/Plan Assessment/Plan (1) Non-pressure chronic ulcer of other part of left lower leg with fat layer exposed: CODE(S): L97.822 - Non-pressure chronic ulcer of other part of left lower leg with fat layer exposed PLAN: Patient was examined and evaluated. All findings were discussed with the patient. All questions were answered to the patient's satisfaction. Excisional debridement down to and including subcutaneous tissue with a number 7 mm dermal curette to the right leg full-thickness ulceration without incident. Predebridement measurement was 7.8 x 8.8 x 0.1 cm. Postdebridement measurement is 8.1 x 9.0 x 0.1 cm. Excisional debridement down to including subcutaneous tissue with a number 7 mm dermal curette to the left leg full-thickness ulceration with a center. Predebridement measurement was 3.0 x 6.5 x 0.1 cm. Post debridement measurement is 3.1 x 6.8 x 0.1 cm. Bilateral lower extremity were cleaned and patted dry. Silver alginate was applied to all full-thickness wound to the bilateral lower extremity followed by 3M multilayer compression wraps. Patient will continue to leave them clean dry and intact and will follow-up with nursing visits as scheduled. Patient will be given a new prescription for gabapentin 300 mg 3 times daily for 90 days. Follow-up at the wound care center with Dr. Quinones in 2 week. (2) Non-pressure chronic ulcer of other part of right lower leg with fat layer exposed: CODE(S): L97.812 - Non-pressure chronic ulcer of other part of right lower leg with fat layer exposed
[2024-03-17 16:04] VITALS: BP 146/78; PULSE 83; RESP 18; BMI 43.3
[2024-03-20 15:35] VITALS: PULSE 64; RESP 16; TEMP 519.8; TEMP 967.6; BMI 43.3
[2024-03-25 11:35] VITALS: BP 160/95; PULSE 76; RESP 16; BMI 43.3
--- NOTE | 2024-03-25 12:56 | PN.PCM_ITS ---
History of Present Illness Date of Service: 03/25/24 Chief Complaint: Right leg ulceration History of Wound: Right leg ulceration Subjective Subjective Mr. Meneses is a 58-year-old male presented wound care center today for follow-up evaluation of full-thickness wounds to bilateral lower extremity. Patient is left his multilayer compression bandages clean dry and intact. He has been following up with nursing visits and notices great improvement to his legs and wounds. Grateful for his care. Denies trauma. Denies constitutional symptoms. No other pedal complaints at this time. Objective Data Objective Data Vital Signs: Vital Signs Temp Pulse Resp BP O2 Del Method 967.6 F H 76 16 160/95 H Room Air 03/20/24 15:35 03/25/24 11:35 03/25/24 11:35 03/25/24 11:35 03/25/24 11:35 Oxygen Delivery Method Room Air Weight: 129.274 kg Body Mass Index (BMI) 43.3 Physical Exam Narrative Vascular: DP and PT pulse are faintly palpable secondary to edema. CFT is brisk. Erythema improving to the right lower extremity. Skin temperature gradient is warm to warm from proximal ankles to distal digit. No focal warmth is appreciated left lower extremity. +1 pitting edema bilateral, improving. Neurological: Light touch intact. Patient does respond to painful stimuli. Dermatological: Full-thickness ulceration to the right leg measuring 7.5 x 4.5 x 0.2 cm. The wound base to the right leg is fibrogranular in nature. Drainage has improved. No malodor. Negative probe to bone bilateral. Full-thickness wound to the left leg measuring 2.7 x 6.5 x 0.1 cm. Wound base is granular with no sign of infection or drainage. Excisional debridement down to and including subcutaneous tissue with a number 7 mm dermal curette to the right leg full-thickness ulceration without incident. Predebridement measurement was 7.0 x 4.0 x 0.1 cm. Postdebridement measurement is 7.5 x 4.5 x 0.2 cm. Excisional debridement down to including subcutaneous tissue with a number 7 mm dermal curette to the left leg full-thickness ulceration with a center. Predebridement measurement was 2.5 x 6.3 x 0.1 cm. Post debridement measurement is 2.7 x 6.5 x 0.1 cm. Musculoskeletal: Muscle strength is 5 out of 5 in all quadrants bilateral. Mild to moderate palpatory tenderness appreciated to the right and left leg. No pain with calf compression bilateral. Debridement Note Debridement Note Debridement Free Text: Excisional debridement down to and including subcutaneous tissue with a number 7 mm dermal curette to the right leg full-thickness ulceration without incident. Predebridement measurement was 7.0 x 4.0 x 0.1 cm. Postdebridement measurement is 7.5 x 4.5 x 0.2 cm. Excisional debridement down to including subcutaneous tissue with a number 7 mm dermal curette to the left leg full-thickness ulceration with a center. Predebridement measurement was 2.5 x 6.3 x 0.1 cm. Post debridement measurement is 2.7 x 6.5 x 0.1 cm Post-Debridement Measurements and Additional Note: Post-Debridement Measurements/Treatment WC - Nurse 1 - General Ulcer Assessment Start: 02/27/24 13:19 Freq: Status: Active Protocol: TERENCE Activity Type Activity Date Activity User E-sign Co-sign Detail Recorded Client Recorded Date Recorded By Document 02/27/24 13:19 ML [id number] 02/27/24 13:33 ML Document 03/03/24 10:23 KW [id number] 03/03/24 10:54 KW Document 03/05/24 13:22 DS [id number] 03/05/24 13:42 DS Document 03/10/24 15:34 BMF [id number] 03/10/24 15:36 BMF Document 03/12/24 13:16 DL [id number] 03/12/24 13:27 DL Document 03/17/24 16:04 DS [id number] 03/17/24 16:10 DS Document 03/20/24 15:35 KW [id number] 03/20/24 16:13 KW Document 03/25/24 11:35 BMF [id number] 03/25/24 11:43 BMF 02/27/24 03/03/24 03/05/24 13:19 10:23 13:22 WC - Today's Visit Information Type of service Follow-up Visit Nurse-only Follow-up Visit (Physician/[employer]RETTED INSTRUMENT [employer]KER HAND Visit (Physician/FRETTED INSTRUMENT MAKER HAND ) ) Arrival Mode Ambulatory Ambulatory Ambulatory Transfer Assistance None Patient Identification Verified (Name & Yes Yes Yes ) Patient Requires Transmission-Based No No Precautions Safety Precautions Fall Prevention Height and Weight Body Mass Index (BMI) 43.3 43.3 43.3 BMI Classification Obese Obese Obese Vital Signs Temperature (97.8 F-99.1 F) 98.2 F 97.5 F L 98.1 F Temperature Source Temporal Temporal Temporal Pulse Rate (60-100) 102 H 77 Pulse Location Monitor Monitor Monitor Respiratory Rate (12-18) 16 18 18 Respiratory rate source Observation Observation Observation Oxygen Delivery Method Room Air Room Air Blood Pressure (90/60-120/80) 108/67 158/75 H 154/91 H Blood Pressure Mean (mm Hg) 80 102 112 Source Monitor Monitor Monitor Position Sitting Semi-Fowlers Sitting Blood Pressure Location Left Arm Left Arm Left Arm History Since Last Visit- (Skip if this is Patient's initial visit) Have you changed medications since your No No No last visit? Any new allergies or adverse reactions No No No Had a fall/change in ADL's that may No No No increase risk of falls Signs or symptoms of abuse and/or No No No neglect since last visit Have you been in the hospital since your No No No last visit? Has dressing in place as prescribed Yes Yes Yes Has compression in place as prescribed Yes N/A Yes Has offloadiing in place as prescribed N/A N/A N/A Experienced any changes in pain level or No No No management Left Footwear Regular Shoe Regular Shoe Right Footwear Regular Shoe Regular Shoe Pain Scale: 0-10 Numeric Is Patient Pain Free? Yes Yes No bl lower legs -Description Sharp,Throbbing ,Burning,Aching -Intensity 8 -Duration (hours) Chronic -Pain Aggravating Factors Changing Position -Alleviating Factors/Interventions Will continue to monitor, Emotional Support 03/10/24 03/12/24 03/17/24 15:34 13:16 16:04 WC - Today's Visit Information Type of service Nurse-only Follow-up Visit Nurse-only Visit (Physician/FRETTED INSTRUMENT MAKER HAND Visit ) Arrival Mode Ambulatory Ambulatory Ambulatory Transfer Assistance None None None Patient Identification Verified (Name & Yes Yes Yes ) Patient Requires Transmission-Based No No No Precautions Safety Precautions Height and Weight Body Mass Index (BMI) 43.3 43.3 43.3 BMI Classification Obese Obese Obese Vital Signs Temperature (97.8 F-99.1 F) 97.2 F L 98.4 F Temperature Source Temporal Temporal Pulse Rate (60-100) 82 108 H 83 Pulse Location Monitor Monitor Monitor Respiratory Rate (12-18) 16 20 H 18 Respiratory rate source Observation Observation Observation Oxygen Delivery Method Room Air Room Air Blood Pressure (90/60-120/80) 135/76 H 129/80 H 146/78 H Blood Pressure Mean (mm Hg) 95 96 100 Source Monitor Monitor Monitor Position Sitting Supine Blood Pressure Location Left Arm Right Forearm History Since Last Visit- (Skip if this is Patient's initial visit) Have you changed medications since your No No No last visit? Any new allergies or adverse reactions No No No Had a fall/change in ADL's that may No No No increase risk of falls Signs or symptoms of abuse and/or No No No neglect since last visit Have you been in the hospital since your No No No last visit? Has dressing in place as prescribed Yes Yes Yes Has compression in place as prescribed Yes Yes Yes Has offloadiing in place as prescribed N/A N/A N/A Experienced any changes in pain level or No Yes No management Left Footwear Regular Shoe Regular Shoe Right Footwear Regular Shoe Regular Shoe Pain Scale: 0-10 Numeric Is Patient Pain Free? Yes Yes Yes bl lower legs -Description -Intensity -Duration (hours) -Pain Aggravating Factors -Alleviating Factors/Interventions 03/20/24 03/25/24 15:35 11:35 WC - Today's Visit Information Type of service Nurse-only Follow-up Visit Visit (Physician/FRETTED INSTRUMENT MAKER HAND ) Arrival Mode Ambulatory Ambulatory Transfer Assistance None Patient Identification Verified (Name & Yes Yes ) Patient Requires Transmission-Based No Precautions Safety Precautions Height and Weight Body Mass Index (BMI) 43.3 43.3 BMI Classification Obese Obese Vital Signs Temperature (97.8 F-99.1 F) 967.6 F H Temperature Source Temporal Pulse Rate (60-100) 64 76 Pulse Location Monitor Monitor Respiratory Rate (12-18) 16 16 Respiratory rate source Observation Observation Oxygen Delivery Method Room Air Room Air Blood Pressure (90/60-120/80) 160/95 H Blood Pressure Mean (mm Hg) 116 Source Monitor Monitor Position Sitting Sitting Blood Pressure Location Left Arm Left Arm History Since Last Visit- (Skip if this is Patient's initial visit) Have you changed medications since your No No last visit? Any new allergies or adverse reactions No No Had a fall/change in ADL's that may No No increase risk of falls Signs or symptoms of abuse and/or No No neglect since last visit Have you been in the hospital since your No No last visit? Has dressing in place as prescribed Yes Yes Has compression in place as prescribed Yes Yes Has offloadiing in place as prescribed N/A N/A Experienced any changes in pain level or No No management Left Footwear Regular Shoe Regular Shoe Right Footwear Regular Shoe Regular Shoe Pain Scale: 0-10 Numeric Is Patient Pain Free? Yes Yes bl lower legs -Description -Intensity -Duration (hours) -Pain Aggravating Factors -Alleviating Factors/Interventions WC - Nurse 1 - General Ulcer Measurement Start: 02/27/24 13:19 Freq: Status: Active Protocol: Activity Type Activity Date Activity User E-sign Co-sign Detail Recorded Client Recorded Date Recorded By Document 02/27/24 13:19 ML [id number] 02/27/24 13:33 ML Edit Result 02/27/24 13:19 ML (1) [id number] 02/27/24 13:37 ML Document 03/05/24 13:22 DS [id number] 03/05/24 13:42 DS Document 03/10/24 15:34 BMF [id number] 03/10/24 15:36 BMF Document 03/12/24 13:16 DL [id number] 03/12/24 13:27 DL Document 03/17/24 16:04 DS [id number] 03/17/24 16:10 DS Document 03/25/24 11:35 BMF [id number] 03/25/24 11:43 BMF (1) LEFT LATERAL LEG CLUSTER - Current Size (cm) - Length => 5 - Current Size (cm) - Width => 3 - Current Size (cm) - Depth => 0.1 - Total Square Cm => 15 - Exudate Amt => Medium - Exudate Type => Serosanguineous - Granulation Amt => Medium (34-66%) - Necrosis Amt => Medium (34-66%) - Texture (Ines-wound Skin Appearance) => Assessed - Moisture (Ines-wound Skin Appearance) => Assessed - Color (Ines-wound Skin Appearance) => Assessed - Temperature (Ines-wound Skin => No Abnormality (Pt Appearance) => Warm) - Tenderness on Palpation (Ines-wound => Yes Skin Appearance) - Ulcer Cleansing => Soap and Water - Anesthetic Used => 4% Lidocaine => Solution 02/27/24 03/05/24 03/10/24 13:19 13:22 15:34 Wound Center Nurse 1 LEFT LATERAL LEG CLUSTER -Combined with other wound -Current Size (cm) - Length 5 15.0 -Current Size (cm) - Width 3 3.0 -Current Size (cm) - Depth 0.1 0.2 -Total Square Cm 15 45.00 -Date of Last Picture (Recall this field) -Photo Taken -Epithelialization -Tunneling No -Undermining/Tunneling No -Circular Undermining No -Exudate Amt Medium Medium -Exudate Type Serosanguineous Serosanguineous -Wound Margin Distinct, Outline Attached -Granulation Amt Medium (34-66%) Small (1-33%) -Granulation Quality [place] -Slough/Fibrin -Necrosis Amt Medium (34-66%) Large (67-100%) -Necrotic Tissue Type Adherent Slough -Structure Exposed -Texture (Ines-wound Skin Appearance) Assessed Assessed -Moisture (Ines-wound Skin Appearance) Assessed Assessed -Color (Ines-wound Skin Appearance) Assessed Assessed -Temperature (Ines-wound Skin No Abnormality No Abnormality Appearance) (Pt Warm) (Pt Warm) -Tenderness on Palpation (Ines-wound Yes No Skin Appearance) -Ulcer Cleansing Soap and Water Soap and Water -Foul Odor after Cleansing No -Anesthetic Used 4% Lidocaine 5% Lidocaine Solution Gel #1 right lateral leg CLUSTER -Combined with other wound -Current Size (cm) - Length 23 19.5 -Current Size (cm) - Width 6 9.0 -Current Size (cm) - Depth 0.3 0.2 -Total Square Cm 138 175.50 -Epithelialization -Tunneling No -Undermining/Tunneling No -Circular Undermining No -Exudate Amt Medium Medium -Exudate Type Serosanguineous Serosanguineous -Wound Margin Distinct, Distinct, Outline Outline Attached Attached -Granulation Amt Medium (34-66%) Small (1-33%) -Granulation Quality [place] -Slough/Fibrin -Necrosis Amt Medium (34-66%) Large (67-100%) -Necrotic Tissue Type Adherent Slough Adherent Slough -Structure Exposed -Texture (Ines-wound Skin Appearance) Assessed Assessed -Moisture (Ines-wound Skin Appearance) Assessed Assessed -Color (Ines-wound Skin Appearance) Assessed Assessed -Temperature (Ines-wound Skin No Abnormality No Abnormality Appearance) (Pt Warm) (Pt Warm) -Tenderness on Palpation (Ines-wound Yes No Skin Appearance) -Ulcer Cleansing Soap and Water Soap and Water -Foul Odor after Cleansing No No -Anesthetic Used 4% Lidocaine 5% Lidocaine Solution Gel -Wound Comment(s) Lower Limb Edema Present Yes Right Calf (cm) 48.5 45.5 44.4 Right Ankle (cm) 28 31.0 28.9 Left Calf (cm) 46.2 44.8 Left Ankle (cm) 28 30.0 29 Left Foot (cm) 44 03/12/24 03/17/24 03/25/24 13:16 16:04 11:35 Wound Center Nurse 1 LEFT LATERAL LEG CLUSTER -Combined with other wound No -Current Size (cm) - Length 4 2.5 -Current Size (cm) - Width 13 12 -Current Size (cm) - Depth 0.1 0.2 -Total Square Cm 52 30.0 -Date of Last Picture (Recall this 03/25/24 field) -Photo Taken Yes -Epithelialization Small 1-33% -Tunneling No -Undermining/Tunneling No -Circular Undermining No -Exudate Amt Medium Medium -Exudate Type Serosanguineous Serosanguineous -Wound Margin Distinct, Distinct, Outline Outline Attached Attached -Granulation Amt Medium (34-66%) Medium (34-66%) -Granulation Quality Red Red -Slough/Fibrin Yes -Necrosis Amt Medium (34-66%) Medium (34-66%) -Necrotic Tissue Type Adherent Slough Adherent Slough -Structure Exposed N/A -Texture (Ines-wound Skin Appearance) Scarring Assessed -Moisture (Ines-wound Skin Appearance) No Abnormality Assessed,Dry/ Scaly -Color (Ines-wound Skin Appearance) Hemosiderin Assessed Staining -Temperature (Ines-wound Skin No Abnormality No Abnormality Appearance) (Pt Warm) (Pt Warm) -Tenderness on Palpation (Ines-wound No Skin Appearance) -Ulcer Cleansing Soap and Water Soap and Water -Foul Odor after Cleansing No No -Anesthetic Used 4% Lidocaine 4% Lidocaine Solution Solution #1 right lateral leg CLUSTER -Combined with other wound No -Current Size (cm) - Length 7.6 5.6 -Current Size (cm) - Width 5.5 3.1 -Current Size (cm) - Depth 0.1 0.2 -Total Square Cm 41.80 17.36 -Epithelialization Small 1-33% -Tunneling No -Undermining/Tunneling No -Circular Undermining No -Exudate Amt Medium Medium -Exudate Type Serosanguineous Serosanguineous -Wound Margin Distinct, Distinct, Outline Outline Attached Attached -Granulation Amt Medium (34-66%) Medium (34-66%) -Granulation Quality Red Red -Slough/Fibrin Yes -Necrosis Amt Medium (34-66%) Medium (34-66%) -Necrotic Tissue Type Adherent Slough Adherent Slough -Structure Exposed N/A -Texture (Ines-wound Skin Appearance) Scarring Assessed, Scarring -Moisture (Ines-wound Skin Appearance) Dry/Scaly Assessed -Color (Ines-wound Skin Appearance) Hemosiderin Assessed Staining -Temperature (Ines-wound Skin No Abnormality No Abnormality Appearance) (Pt Warm) (Pt Warm) -Tenderness on Palpation (Ines-wound No No Skin Appearance) -Ulcer Cleansing Soap and Water Soap and Water -Foul Odor after Cleansing No No -Anesthetic Used 4% Lidocaine 4% Lidocaine Solution Solution -Wound Comment(s) DIDN'T TAKE PIC . [employer] EXHAUSTED Lower Limb Edema Present Yes Yes Right Calf (cm) 44.2 43 43.6 Right Ankle (cm) 28.5 29 27.6 Left Calf (cm) 44.5 43.8 45.5 Left Ankle (cm) 29.6 29.4 28.3 Left Foot (cm) WC - Nurse 2 - General Ulcer CM Notes Start: 02/27/24 13:19 Freq: Status: Active Protocol: Activity Type Activity Date Activity User E-sign Co-sign Detail Recorded Client Recorded Date Recorded By Document 02/27/24 13:51 [id number] 02/27/24 13:54 Document 03/05/24 13:47 [id number] 03/05/24 13:52 Document 03/12/24 13:33 [id number] 03/12/24 13:35 Document 03/25/24 11:58 [id number] 03/25/24 12:02 02/27/24 03/05/24 03/12/24 13:51 13:47 13:33 Wound Center Nurse 2 LEFT LATERAL LEG CLUSTER -Time 13:51 13:48 13:34 -Correct Patient Yes Yes Yes -Correct Side, Site, Position Yes Yes Yes -Correct Procedure Yes Yes Yes -Procedure Performed Yes Yes Yes -Type of Procedure Debridement Debridement Debridement -Clinical Debridement Subcutaneous Subcutaneous Subcutaneous -Tissue Removed Subcutaneous Subcutaneous Subcutaneous -Post Debridement (cm) - Length 4.2 3.7 6.8 -Post Debridement (cm) - Width 7 7.5 3.1 -Post Debridement (cm) - Depth 0.1 0.1 0.1 -Total Square (Post) (cm) 29.4 27.75 21.08 -Area of Debridement (cm) - Length 4.2 3.7 6.8 -Area of Debridement (cm) - Width 7 7.5 3.1 -Total Square (Area) (cm) 29.4 27.75 21.08 -Tunneling No No No -Undermining/Tunneling No No No -Circular Undermining No No No -Wound/Ulcer Outcome Not Healed Not Healed Not Healed -Ulcer Cleansing Rinsed/ Rinsed/ Rinsed/ Irrigated with Irrigated with Irrigated with Saline Saline Saline -Foul Odor after Cleansing No No No -Bioengineered Tissue No No No -Bleeding Controlled with Pressure Pressure Pressure -Treatment Response Procedure Procedure Procedure Tolerated Well Tolerated Well Tolerated Well -Offloading No No No -Debridement - Subq, 1st 20sq cm No Yes No -Debridement, SubQ, ea addt'l 20sq cm 7 or part thereof #1 right lateral leg CLUSTER -Time 13:52 13:49 13:34 -Correct Patient Yes Yes Yes -Correct Side, Site, Position Yes Yes Yes -Correct Procedure Yes Yes Yes -Procedure Performed Yes Yes Yes -Type of Procedure Debridement Debridement Debridement -Clinical Debridement Subcutaneous Subcutaneous Subcutaneous -Tissue Removed Subcutaneous Subcutaneous -Post Debridement (cm) - Length 7.5 7.5 8.1 -Post Debridement (cm) - Width 16.0 15.5 9 -Post Debridement (cm) - Depth 0.1 0.1 0.1 -Total Square (Post) (cm) 120.00 116.25 72.9 -Area of Debridement (cm) - Length 7.5 7.5 8.1 -Area of Debridement (cm) - Width 16.0 15.5 9 -Total Square (Area) (cm) 120.00 116.25 72.9 -Tunneling No No No -Undermining/Tunneling No No No -Circular Undermining No No No -Wound/Ulcer Outcome Not Healed Not Healed Not Healed -Ulcer Cleansing Rinsed/ Rinsed/ Rinsed/ Irrigated with Irrigated with Irrigated with Saline Saline Saline -Foul Odor after Cleansing No No No -Bioengineered Tissue No No No -Bleeding Controlled with Pressure Pressure Pressure -Treatment Response Procedure Procedure Procedure Tolerated Well Tolerated Well Tolerated Well -Offloading No No No -Debridement - Subq, 1st 20sq cm Yes No Yes -Debridement, SubQ, ea addt'l 20sq cm 7 4 or part thereof Pain Scale: 0-10 Numeric Is Patient Pain Free? Yes Yes Yes 03/25/24 11:58 Wound Center Nurse 2 LEFT LATERAL LEG CLUSTER -Time 12:00 -Correct Patient Yes -Correct Side, Site, Position Yes -Correct Procedure Yes -Procedure Performed Yes -Type of Procedure Debridement -Clinical Debridement Subcutaneous -Tissue Removed Subcutaneous -Post Debridement (cm) - Length 2.7 -Post Debridement (cm) - Width 6.5 -Post Debridement (cm) - Depth 0.1 -Total Square (Post) (cm) 17.55 -Area of Debridement (cm) - Length 2.7 -Area of Debridement (cm) - Width 6.5 -Total Square (Area) (cm) 17.55 -Tunneling No -Undermining/Tunneling No -Circular Undermining No -Wound/Ulcer Outcome Not Healed -Ulcer Cleansing Rinsed/ Irrigated with Saline -Foul Odor after Cleansing No -Bioengineered Tissue No -Bleeding Controlled with Pressure -Treatment Response Procedure Tolerated Well -Offloading No -Debridement - Subq, 1st 20sq cm No -Debridement, SubQ, ea addt'l 20sq cm or part thereof #1 right lateral leg CLUSTER -Time 12:01 -Correct Patient Yes -Correct Side, Site, Position Yes -Correct Procedure Yes -Procedure Performed Yes -Type of Procedure Debridement -Clinical Debridement Subcutaneous -Tissue Removed -Post Debridement (cm) - Length 7.5 -Post Debridement (cm) - Width 4.5 -Post Debridement (cm) - Depth 0.2 -Total Square (Post) (cm) 33.75 -Area of Debridement (cm) - Length 7.5 -Area of Debridement (cm) - Width 4.5 -Total Square (Area) (cm) 33.75 -Tunneling No -Undermining/Tunneling No -Circular Undermining No -Wound/Ulcer Outcome Not Healed -Ulcer Cleansing Rinsed/ Irrigated with Saline -Foul Odor after Cleansing No -Bioengineered Tissue No -Bleeding Controlled with Pressure -Treatment Response Procedure Tolerated Well -Offloading No -Debridement - Subq, 1st 20sq cm Yes -Debridement, SubQ, ea addt'l 20sq cm 2 or part thereof Pain Scale: 0-10 Numeric Is Patient Pain Free? Yes WC - Nurse 3 - General Ulcer D/C NN Start: 02/27/24 13:19 Freq: Status: Active Protocol: Activity Type Activity Date Activity User E-sign Co-sign Detail Recorded Client Recorded Date Recorded By Document 02/27/24 13:54 JF [id number] 02/27/24 13:56 JF Document 03/03/24 10:23 KW [id number] 03/03/24 10:54 KW Document 03/05/24 14:06 CP [id number] 03/05/24 14:07 CP Document 03/10/24 15:34 BMF [id number] 03/10/24 15:36 BMF Document 03/12/24 14:20 KW [id number] 03/12/24 14:21 KW Document 03/17/24 15:56 DS [id number] 03/17/24 16:04 DS Document 03/20/24 15:35 KW [id number] 03/20/24 16:13 KW Document 03/25/24 12:11 KW [id number] 03/25/24 12:12 KW 02/27/24 03/03/24 03/05/24 13:54 10:23 14:06 Wound Care Center Nurse 3 LEFT LATERAL LEG CLUSTER -Ulcer Cleansing Rinsed/ Soap and Water Irrigated with Saline -Foul Odor after Cleansing No -Primary Dressing Applied Optilok 8x12, Optilok 8x12, Silvercel Silvercel Silvercel -Primary Dressing Covered/Secured with Dry Gauze & Dry Gauze & Roll Gauze, Roll Gauze, Secured with Secured with Tape Tape -Other Covering -Aquacel AG 4x4 -[place]ob[place]: 2 Layer System 1 -Optilok 8x12 1 1 -Silvercel 1 1 1 #1 right lateral leg CLUSTER -Ulcer Cleansing Rinsed/ Soap and Water Irrigated with Saline -Foul Odor after Cleansing No -Primary Dressing Applied Optilok 8x12, Optilok 8x12 Silvercel -Other Dressing silvercel silvercel -Primary Dressing Covered/Secured with Dry Gauze Dry Gauze & Dry Gauze & Roll Gauze, Roll Gauze, Secured with Secured with Tape Tape -Aquacel AG 4x4 -[place]: 2 Layer System 1 -Optilok 8x12 1 1 -Silvercel 1 BLE -Multi-Layered Wrap Application Multi-Layer Multi-Layer Multi-Layer Comp - Bilat ($ Comp - Bilat ($ Comp - Bilat ($ ) ) ) Treatment Response Vital Signs Temperature (97.8 F-99.1 F) 97.5 F L Temperature Source Temporal Pulse Rate (60-100) Pulse Location Monitor Respiratory Rate (12-18) 18 Respiratory rate source Observation Oxygen Delivery Method Room Air Blood Pressure (90/60-120/80) 158/75 H Blood Pressure Mean (mm Hg) 102 Source Monitor Position Semi-Fowlers Blood Pressure Location Left Arm Pain Scale: 0-10 Numeric Is Patient Pain Free? Yes Yes Yes WC - Visit Discharge Discharge Condition Stable Stable Stable Ambulatory Status Ambulatory Ambulatory Ambulatory Transportation Private Auto Private Auto Private Auto Medication Reconcilliation completed & Yes No No provided to patient/care provider Clinical Summary of Care Provided Yes Yes Yes 03/10/24 03/12/24 03/17/24 15:34 14:20 15:56 Wound Care Center Nurse 3 LEFT LATERAL LEG CLUSTER -Ulcer Cleansing Soap and Water -Foul Odor after Cleansing No -Primary Dressing Applied Optilok 8x12, Silvercel Aquacel AG 4x4 Silvercel -Primary Dressing Covered/Secured with Dry Gauze & Dry Gauze & Dry Gauze & Roll Gauze, Roll Gauze, Roll Gauze, Secured with Secured with Secured with Tape Tape Tape -Other Covering abd -Aquacel AG 4x4 1 -[place]ob[place]: 2 Layer System -Optilok 8x12 1 -Silvercel 1 1 #1 right lateral leg CLUSTER -Ulcer Cleansing Soap and Water Soap and Water -Foul Odor after Cleansing No No -Primary Dressing Applied Optilok 8x12, Aquacel AG 4x4 Silvercel -Other Dressing SILVER abd -Primary Dressing Covered/Secured with Dry Gauze & Dry Gauze & Dry Gauze & Roll Gauze, Roll Gauze, Roll Gauze, Secured with Secured with Secured with Tape Tape Tape -Aquacel AG 4x4 1 -[place]: 2 Layer System -Optilok 8x12 1 -Silvercel 1 BLE -Multi-Layered Wrap Application Multi-Layer Multi-Layer Multi-Layer Comp - Bilat ($ Comp - Bilat ($ Comp - Bilat ($ ) ) ) Treatment Response Procedure Procedure Tolerated Well Tolerated Well Vital Signs Temperature (97.8 F-99.1 F) 97.2 F L Temperature Source Temporal Pulse Rate (60-100) 82 Pulse Location Monitor Respiratory Rate (12-18) 16 Respiratory rate source Observation Oxygen Delivery Method Room Air Blood Pressure (90/60-120/80) 135/76 H Blood Pressure Mean (mm Hg) 95 Source Monitor Position Sitting Blood Pressure Location Left Arm Pain Scale: 0-10 Numeric Is Patient Pain Free? Yes Yes Yes WC - Visit Discharge Discharge Condition Stable Stable Stable Ambulatory Status Ambulatory Ambulatory Ambulatory Transportation Private Auto Private Auto Private Auto Medication Reconcilliation completed & No provided to patient/care provider Clinical Summary of Care Provided Yes 03/20/24 03/25/24 15:35 12:11 Wound Care Center Nurse 3 LEFT LATERAL LEG CLUSTER -Ulcer Cleansing Soap and Water -Foul Odor after Cleansing -Primary Dressing Applied Silvercel -Primary Dressing Covered/Secured with Dry Gauze & Roll Gauze, Secured with Tape -Other Covering -Aquacel AG 4x4 -Coban: 2 Layer System -Optilok 8x12 -Silvercel 1 #1 right lateral leg CLUSTER -Ulcer Cleansing Soap and Water -Foul Odor after Cleansing -Primary Dressing Applied -Other Dressing SILVER -Primary Dressing Covered/Secured with Dry Gauze & Roll Gauze, Secured with Tape -Aquacel AG 4x4 -Coban: 2 Layer System -Optilok 8x12 -Silvercel BLE -Multi-Layered Wrap Application Multi-Layer Multi-Layer Comp - Bilat ($ Comp - Bilat ($ ) ) Treatment Response Vital Signs Temperature (97.8 F-99.1 F) 967.6 F H Temperature Source Temporal Pulse Rate (60-100) 64 Pulse Location Monitor Respiratory Rate (12-18) 16 Respiratory rate source Observation Oxygen Delivery Method Room Air Blood Pressure (90/60-120/80) Blood Pressure Mean (mm Hg) Source Monitor Position Sitting Blood Pressure Location Left Arm Pain Scale: 0-10 Numeric Is Patient Pain Free? Yes Yes WC - Visit Discharge Discharge Condition Stable Stable Ambulatory Status Ambulatory Ambulatory Transportation Private Auto Private Auto Medication Reconcilliation completed & No No provided to patient/care provider Clinical Summary of Care Provided Yes Yes Assessment/Plan Assessment/Plan (1) Non-pressure chronic ulcer of other part of left lower leg with fat layer exposed: CODE(S): L97.822 - Non-pressure chronic ulcer of other part of left lower leg with fat layer exposed PLAN: Patient was examined and evaluated. All findings were discussed with the patient. All questions were answered to the patient's satisfaction. Excisional debridement down to and including subcutaneous tissue with a number 7 mm dermal curette to the right leg full-thickness ulceration without incident. Predebridement measurement was 7.0 x 4.0 x 0.1 cm. Postdebridement measurement is 7.5 x 4.5 x 0.2 cm. Excisional debridement down to including subcutaneous tissue with a number 7 mm dermal curette to the left leg full-thickness ulceration with a center. Predebridement measurement was 2.5 x 6.3 x 0.1 cm. Post debridement measurement is 2.7 x 6.5 x 0.1 cm Bilateral lower extremity were cleaned and patted dry. Silver alginate was applied to all full-thickness wound to the bilateral lower extremity followed by 3M multilayer compression wraps. Patient will continue to leave them clean dry and intact and will follow-up with nursing visits as scheduled. Follow-up at the wound care center with Dr. Quinones in 2 week. (2) Non-pressure chronic ulcer of other part of right lower leg with fat layer exposed: CODE(S): L97.812 - Non-pressure chronic ulcer of other part of right lower leg with fat layer exposed
--- NOTE | 2024-03-31 10:15 | WC ---
PHOTO LEFT LATERAL LE 03/25/24
== END 2024-03-25 23:59 | disposition home or self-care (01) ==
LOC: WC 11:30
PROVIDERS: PCP Nurse Practitioner Family; Referring Provider Nurse Practitioner Family; Visit Provider Podiatrist Foot & Ankle Surgery
DX: I83.018 Varicose veins of right lower extremity with ulcer other part of lower leg (principal); L97.812 Non-pressure chronic ulcer of other part of right lower leg with fat layer exposed; L97.822 Non-pressure chronic ulcer of other part of left lower leg with fat layer exposed; I83.028 Varicose veins of left lower extremity with ulcer other part of lower leg; I89.0 Lymphedema, not elsewhere classified
CPT/HCPCS: 11042; 11045; 29581

== ENCOUNTER 2024-04-23 13:15 | Outpatient (RCR) | payer BC, SELFPAY ==
[2024-03-26 00:48] VITALS: BP 133/85; PULSE 112; RESP 18; TEMP 36.1; BMI 43.3
[2024-03-27 15:50] VITALS: BP 137/84; PULSE 75; RESP 16; TEMP 36.5; BMI 43.3
[2024-03-31 15:21] VITALS: RESP 18; TEMP 35.9; BMI 43.3
[2024-04-03 15:24] VITALS: BP 149/82; PULSE 86; RESP 16; TEMP 36.2; BMI 43.3
[2024-04-07 16:03] VITALS: BMI 43.3
[2024-04-09 13:21] VITALS: BP 149/82; PULSE 91; RESP 18; TEMP 36.7; BMI 43.3
--- NOTE | 2024-04-09 13:51 | PN.PCM_ITS ---
History of Present Illness Date of Service: 03/25/24 Chief Complaint: Bilateral leg ulceration History of Wound: Bilateral leg ulcerations Progress of Wound: Bilateral leg ulcerations are stable and showing improvement every time the patient is presenting to the wound care center. He has been compliant with dressing changes and following up for nursing visits to have his multilayer compression bandages changed. He admits that his pain is improved especially to right lower extremity. Subjective Subjective Mr. Meneses is a 58-year-old male presented wound care center today for follow-up evaluation of full-thickness wounds to bilateral lower extremity. Patient has kept his multilayer compression bandage clean dry and intact. He is following up for nursing visits. He admits to improved pain especially to the right lower extremity. He denies trauma. Denies constitutional symptoms. No other pedal complaints at this time. Objective Data Objective Data Vital Signs: Vital Signs Temp Pulse Resp BP O2 Del Method 98.1 F 91 18 149/82 H Room Air 04/09/24 13:21 04/09/24 13:21 04/09/24 13:21 04/09/24 13:21 04/09/24 13:21 Oxygen Delivery Method Room Air Weight: 129.274 kg Body Mass Index (BMI) 43.3 Physical Exam Narrative Vascular: DP and PT pulse are faintly palpable secondary to edema. CFT is brisk. Erythema improved. Nonpitting edema appreciated bilateral lower extremity. Neurological: Light touch intact. Patient does respond to painful stimuli. Dermatological: Full-thickness ulceration to the right leg measuring 7.3 x 4.3 x 0.1 cm. The wound base to the right leg is granular in nature. No drainage or malodor. Full-thickness wound to the left leg measuring 2.4 x 2.2 x 0.1 cm. Wound base is granular with no sign of infection or drainage. Excisional debridement down to and including subcutaneous tissue with a number 7 mm dermal curette to the right leg full-thickness ulceration without incident. Predebridement measurement was 6.8 x 4.0 x 0.1 cm. Postdebridement measurement is 7.3 x 4.3 x 0.1 cm. Excisional debridement down to including subcutaneous tissue with a number 7 mm dermal curette to the left leg full-thickness ulceration with a center. Predebridement measurement was 2.3 x 2.0 x 0.1 cm. Post debridement measurement is 2.4 x 2.2 x 0.1 cm. Musculoskeletal: Mild palpatory tenderness appreciated to the right and left leg. No pain with calf compression bilateral. Debridement Note Debridement Note Debridement Free Text: Excisional debridement down to and including subcutaneous tissue with a number 7 mm dermal curette to the right leg full-thickness ulceration without incident. Predebridement measurement was 6.8 x 4.0 x 0.1 cm. Postdebridement measurement is 7.3 x 4.3 x 0.1 cm. Excisional debridement down to including subcutaneous tissue with a number 7 mm dermal curette to the left leg full-thickness ulceration with a center. Predebridement measurement was 2.3 x 2.0 x 0.1 cm. Post debridement measurement is 2.4 x 2.2 x 0.1 cm. Post-Debridement Measurements and Additional Note: Post-Debridement Measurements/Treatment - Nurse 1 - General Ulcer Assessment Start: 03/27/24 15:49 Freq: Status: Active Protocol: TERENCE Activity Type Activity Date Activity User E-sign Co-sign Detail Recorded Client Recorded Date Recorded By Document 03/27/24 15:50 BMF [id number] 03/27/24 15:52 BMF Document 03/31/24 15:21 KW [id number] 03/31/24 15:30 KW Document 04/03/24 15:24 KW [id number] 04/03/24 15:26 KW Document 04/07/24 16:03 ML [id number] 04/07/24 16:04 ML Document 04/09/24 13:21 KW [id number] 04/09/24 13:29 KW 03/27/24 03/31/24 04/03/24 15:50 15:21 15:24 - Today's Visit Information Type of service Nurse-only Nurse-only Nurse-only Visit Visit Visit Arrival Mode Ambulatory Ambulatory Transfer Assistance None Patient Identification Verified (Name & Yes Yes Yes ) Patient Requires Transmission-Based No Precautions Height and Weight Body Mass Index (BMI) 43.3 43.3 43.3 BMI Classification Obese Obese Obese Vital Signs Temperature (97.8 F-99.1 F) 97.7 F L 96.6 F L 97.2 F L Temperature Source Temporal Temporal Temporal Pulse Rate (60-100) 75 86 Pulse Location Monitor Monitor Monitor Respiratory Rate (12-18) 16 18 16 Respiratory rate source Observation Observation Observation Oxygen Delivery Method Room Air Room Air Room Air Blood Pressure (90/60-120/80) 137/84 H 149/82 H Blood Pressure Mean (mm Hg) 101 104 Source Monitor Monitor Monitor Position Sitting Semi-Fowlers Sitting Blood Pressure Location Left Arm Right Forearm Left Arm History Since Last Visit- (Skip if this is Patient's initial visit) Have you changed medications since your No No No last visit? Any new allergies or adverse reactions No No No Had a fall/change in ADL's that may No No No increase risk of falls Signs or symptoms of abuse and/or No No No neglect since last visit Have you been in the hospital since your No No No last visit? Has dressing in place as prescribed Yes Yes Yes Has compression in place as prescribed Yes Yes Yes Has offloadiing in place as prescribed N/A N/A N/A Experienced any changes in pain level or No No No management Left Footwear Regular Shoe Regular Shoe Regular Shoe Right Footwear Regular Shoe Regular Shoe Regular Shoe Pain Scale: 0-10 Numeric Is Patient Pain Free? Yes Yes Yes bl lower legs -Description Sharp,Burning -Intensity 10 -Alleviating Factors/Interventions Medication, Medicate when due 04/07/24 04/09/24 16:03 13:21 WC - Today's Visit Information Type of service Nurse-only Follow-up Visit Visit (Physician/[employer] ) Arrival Mode Ambulatory Ambulatory Transfer Assistance Patient Identification Verified (Name & Yes Yes ) Patient Requires Transmission-Based No Precautions Height and Weight Body Mass Index (BMI) 43.3 43.3 BMI Classification Obese Obese Vital Signs Temperature (97.8 F-99.1 F) 98.1 F Temperature Source Temporal Pulse Rate (60-100) 91 Pulse Location Monitor Respiratory Rate (12-18) 18 Respiratory rate source Observation Oxygen Delivery Method Room Air Blood Pressure (90/60-120/80) 149/82 H Blood Pressure Mean (mm Hg) 104 Source Monitor Position Sitting Blood Pressure Location Left Arm History Since Last Visit- (Skip if this is Patient's initial visit) Have you changed medications since your No No last visit? Any new allergies or adverse reactions No No Had a fall/change in ADL's that may No No increase risk of falls Signs or symptoms of abuse and/or No No neglect since last visit Have you been in the hospital since your No last visit? Has dressing in place as prescribed Yes Yes Has compression in place as prescribed N/A Yes Has offloadiing in place as prescribed N/A N/A Experienced any changes in pain level or No No management Left Footwear Regular Shoe Right Footwear Regular Shoe Pain Scale: 0-10 Numeric Is Patient Pain Free? Yes Yes bl lower legs -Description -Intensity -Alleviating Factors/Interventions WC - Nurse 1 - General Ulcer Measurement Start: 03/27/24 15:49 Freq: Status: Active Protocol: Activity Type Activity Date Activity User E-sign Co-sign Detail Recorded Client Recorded Date Recorded By Document 03/27/24 15:50 BM [id number] 03/27/24 15:52 BMF Document 04/09/24 13:21 KW [id number] 04/09/24 13:29 KW 03/27/24 04/09/24 15:50 13:21 Wound Center Nurse 1 LEFT LATERAL LEG CLUSTER -Current Size (cm) - Length 5 -Current Size (cm) - Width 9.2 -Current Size (cm) - Depth 0 -Total Square Cm 46.0 -Date of Last Picture (Recall this 04/09/24 field) -Exudate Amt Small -Exudate Type Serosanguineous -Wound Margin Distinct, Outline Attached -Granulation Amt Large (67-100%) -Granulation Quality Red -Texture (Ines-wound Skin Appearance) Assessed -Moisture (Ines-wound Skin Appearance) Assessed,Dry/ Scaly -Color (Ines-wound Skin Appearance) Assessed -Temperature (Ines-wound Skin No Abnormality Appearance) (Pt Warm) -Tenderness on Palpation (Ines-wound No Skin Appearance) -Ulcer Cleansing Soap and Water -Anesthetic Used 5% Lidocaine Gel #1 right lateral leg CLUSTER -Current Size (cm) - Length 2.8 -Current Size (cm) - Width 4.2 -Current Size (cm) - Depth 0 -Total Square Cm 11.76 -Date of Last Picture (Recall this 04/09/24 field) -Exudate Amt Medium -Exudate Type Serosanguineous -Wound Margin Distinct, Outline Attached -Granulation Amt Large (67-100%) -Granulation Quality Red -Texture (Ines-wound Skin Appearance) Assessed -Moisture (Ines-wound Skin Appearance) Assessed,Dry/ Scaly -Color (Ines-wound Skin Appearance) Assessed -Temperature (Ines-wound Skin No Abnormality Appearance) (Pt Warm) -Tenderness on Palpation (Ines-wound No Skin Appearance) -Ulcer Cleansing Soap and Water -Foul Odor after Cleansing No -Anesthetic Used 5% Lidocaine Gel Lower Limb Edema Present Yes Right Calf (cm) 43 45 Right Ankle (cm) 28.7 29.8 Left Calf (cm) 43.8 43.5 Left Ankle (cm) 28.4 29 WC - Nurse 2 - General Ulcer CM Notes Start: 03/27/24 15:49 Freq: Status: Active Protocol: Activity Type Activity Date Activity User E-sign Co-sign Detail Recorded Client Recorded Date Recorded By Document 04/09/24 13:41 MARIZA [id number] 04/09/24 13:45 MARIZA 04/09/24 13:41 Wound Center Nurse 2 LEFT LATERAL LEG CLUSTER -Time 13:41 -Correct Patient Yes -Correct Side, Site, Position Yes -Correct Procedure Yes -Procedure Performed Yes -Type of Procedure Debridement -Clinical Debridement Subcutaneous -Tissue Removed Subcutaneous -Post Debridement (cm) - Length 2.4 -Post Debridement (cm) - Width 2.2 -Post Debridement (cm) - Depth 0.1 -Total Square (Post) (cm) 5.28 -Area of Debridement (cm) - Length 2.4 -Area of Debridement (cm) - Width 2.2 -Total Square (Area) (cm) 5.28 -Tunneling No -Undermining/Tunneling No -Circular Undermining No -Wound/Ulcer Outcome Not Healed -Ulcer Cleansing Rinsed/ Irrigated with Saline -Foul Odor after Cleansing No -Bioengineered Tissue No -Bleeding Controlled with Pressure -Treatment Response Procedure Tolerated Well -Offloading No -Debridement - Subq, 1st 20sq cm No #1 right lateral leg CLUSTER -Time 13:41 -Correct Patient Yes -Correct Side, Site, Position Yes -Correct Procedure Yes -Procedure Performed Yes -Type of Procedure Debridement -Clinical Debridement Subcutaneous -Tissue Removed Subcutaneous -Post Debridement (cm) - Length 7.5 -Post Debridement (cm) - Width 4.3 -Post Debridement (cm) - Depth 0.1 -Total Square (Post) (cm) 32.25 -Area of Debridement (cm) - Length 7.5 -Area of Debridement (cm) - Width 4.3 -Total Square (Area) (cm) 32.25 -Tunneling No -Undermining/Tunneling No -Circular Undermining No -Wound/Ulcer Outcome Not Healed -Ulcer Cleansing Rinsed/ Irrigated with Saline -Foul Odor after Cleansing No -Bioengineered Tissue No -Bleeding Controlled with Pressure -Treatment Response Procedure Tolerated Well -Offloading No -Debridement - Subq, 1st 20sq cm Yes -Debridement, SubQ, ea addt'l 20sq cm 1 or part thereof Pain Scale: 0-10 Numeric Is Patient Pain Free? Yes WC - Nurse 3 - General Ulcer D/C NN Start: 03/27/24 15:49 Freq: Status: Active Protocol: Activity Type Activity Date Activity User E-sign Co-sign Detail Recorded Client Recorded Date Recorded By Document 03/27/24 15:50 BMF [id number] 03/27/24 15:52 BMF Document 03/31/24 15:21 KW [id number] 03/31/24 15:30 KW Document 04/03/24 15:24 KW [id number] 04/03/24 15:26 KW Document 04/07/24 16:03 ML [id number] 04/07/24 16:04 ML 03/27/24 03/31/24 04/03/24 15:50 15:21 15:24 Vital Signs Temperature (97.8 F-99.1 F) 97.7 F L 96.6 F L 97.2 F L Temperature Source Temporal Temporal Temporal Pulse Rate (60-100) 75 86 Pulse Location Monitor Monitor Monitor Respiratory Rate (12-18) 16 18 16 Respiratory rate source Observation Observation Observation Oxygen Delivery Method Room Air Room Air Room Air Blood Pressure (90/60-120/80) 137/84 H 149/82 H Blood Pressure Mean (mm Hg) 101 104 Source Monitor Monitor Monitor Position Sitting Semi-Fowlers Sitting Blood Pressure Location Left Arm Right Forearm Left Arm Pain Scale: 0-10 Numeric Is Patient Pain Free? Yes Yes Yes bl lower legs -Description Sharp,Burning -Intensity 10 -Alleviating Factors/Interventions Medication, Medicate when due Wound Care Center Nurse 3 LEFT LATERAL LEG CLUSTER -Ulcer Cleansing Soap and Water Soap and Water Soap and Water -Foul Odor after Cleansing No -Primary Dressing Applied Silvercel Silvercel Silvercel -Other Dressing abd -Primary Dressing Covered/Secured with Dry Gauze & Dry Gauze & Dry Gauze & Roll Gauze, Roll Gauze, Roll Gauze, Secured with Secured with Secured with Tape Tape Tape -Silvercel 1 1 1 #1 right lateral leg CLUSTER -Ulcer Cleansing Soap and Water Soap and Water Soap and Water -Foul Odor after Cleansing No -Primary Dressing Applied Silvercel -Other Dressing abd SILVERCEL SILVER -Primary Dressing Covered/Secured with Dry Gauze & Dry Gauze & Dry Gauze & Roll Gauze, Roll Gauze, Roll Gauze, Secured with Secured with Secured with Tape Tape Tape -Silvercel 1 BLE -Lotion applied to leg before Yes compression wrap -Multi-Layered Wrap Application Multi-Layer Multi-Layer Multi-Layer Comp - Bilat ($ Comp - Bilat ($ Comp - Bilat ($ ) ) ) Treatment Response Procedure Tolerated Well WC - Visit Discharge Discharge Condition Stable Stable Stable Ambulatory Status Ambulatory Ambulatory Ambulatory Transportation Private Auto Private Auto Private Auto Medication Reconcilliation completed & No No provided to patient/care provider Clinical Summary of Care Provided Yes Yes 04/07/24 16:03 Vital Signs Temperature (97.8 F-99.1 F) Temperature Source Pulse Rate (60-100) Pulse Location Respiratory Rate (12-18) Respiratory rate source Oxygen Delivery Method Blood Pressure (90/60-120/80) Blood Pressure Mean (mm Hg) Source Position Blood Pressure Location Pain Scale: 0-10 Numeric Is Patient Pain Free? Yes bl lower legs -Description -Intensity -Alleviating Factors/Interventions Wound Care Center Nurse 3 LEFT LATERAL LEG CLUSTER -Ulcer Cleansing -Foul Odor after Cleansing -Primary Dressing Applied -Other Dressing -Primary Dressing Covered/Secured with -Silvercel #1 right lateral leg CLUSTER -Ulcer Cleansing -Foul Odor after Cleansing -Primary Dressing Applied -Other Dressing -Primary Dressing Covered/Secured with -Silvercel BLE -Lotion applied to leg before compression wrap -Multi-Layered Wrap Application Multi-Layer Comp - Bilat ($ ) Treatment Response WC - Visit Discharge Discharge Condition Ambulatory Status Transportation Medication Reconcilliation completed & provided to patient/care provider Clinical Summary of Care Provided Assessment/Plan Assessment/Plan (1) Non-pressure chronic ulcer of other part of left lower leg with fat layer exposed: CODE(S): L97.822 - Non-pressure chronic ulcer of other part of left lower leg with fat layer exposed PLAN: Patient was examined and evaluated. All findings were discussed with the patient. All questions were answered to the patient's satisfaction. Excisional debridement down to and including subcutaneous tissue with a number 7 mm dermal curette to the right leg full-thickness ulceration without incident. Predebridement measurement was 6.8 x 4.0 x 0.1 cm. Postdebridement measurement is 7.3 x 4.3 x 0.1 cm. Excisional debridement down to including subcutaneous tissue with a number 7 mm dermal curette to the left leg full-thickness ulceration with a center. Predebridement measurement was 2.3 x 2.0 x 0.1 cm. Post debridement measurement is 2.4 x 2.2 x 0.1 cm. Bilateral lower extremity were cleaned and patted dry. Silver alginate was applied to all full-thickness wound to the bilateral lower extremity followed by 3M multilayer compression wraps. Patient will continue to leave them clean dry and intact and will follow-up with nursing visits as scheduled. Will begin authorization for amniotic skin graft substitute for the right lower extremity to aid in healing as the patient's wound had become chronic in nature. Follow-up at the wound care center with Dr. Quinones in 2 week. (2) Non-pressure chronic ulcer of other part of right lower leg with fat layer exposed: CODE(S): L97.812 - Non-pressure chronic ulcer of other part of right lower leg with fat layer exposed
--- NOTE | 2024-04-10 08:47 | WC ---
PHOTO 04/09/24 LEFT LATERAL LE CLUSTER
--- NOTE | 2024-04-10 08:48 | WC ---
PHOTO 04/09/24 LEFT LATERAL LE CLUSTER
--- NOTE | 2024-04-10 08:49 | WC ---
PHOTO RIGHT LATERAL LE 04/09/24
[2024-04-14 15:49] VITALS: BP 168/92; PULSE 69; RESP 18; TEMP 36.9; BMI 43.3
[2024-04-17 16:09] VITALS: BMI 43.3
[2024-04-23 13:20] VITALS: BP 188/107; PULSE 107; RESP 18; TEMP 36.1; BMI 43.3
--- NOTE | 2024-04-23 13:37 | PN.PCM_ITS ---
History of Present Illness Date of Service: 03/25/24 Chief Complaint: Bilateral leg ulceration History of Wound: Bilateral leg ulcerations Progress of Wound: Bilateral leg ulcerations are stable and showing improvement every time the patient is presenting to the wound care center. He has been compliant with dressing changes and following up for nursing visits to have his multilayer compression bandages changed. He admits that his pain is improved especially to right lower extremity. Subjective Subjective Mr. Meneses is a 58-year-old male presented wound care center today for follow-up evaluation of full-thickness wounds to bilateral lower extremity. Patient has kept his multilayer compression bandage clean dry and intact. He is following up for nursing visits. He admits to improved pain especially to the right lower extremity. Patient states that he got his lymphedema pumps and will be seeing the rep today for set up and use. He denies trauma. Denies constitutional symp toms. No other pedal complaints at this time. Objective Data Objective Data Vital Signs: Vital Signs Temp Pulse Resp BP O2 Del Method 97 F L 107 H 18 188/107 H Room Air 04/23/24 13:20 04/23/24 13:20 04/23/24 13:20 04/23/24 13:20 04/09/24 13:21 Oxygen Delivery Method Room Air Weight: 129.274 kg Body Mass Index (BMI) 43.3 Physical Exam Narrative Vascular: DP and PT pulse are faintly palpable secondary to edema. CFT is brisk. Erythema improved. Nonpitting edema appreciated bilateral lower extremity. Neurological: Light touch intact. Patient does respond to painful stimuli. Dermatological: Full-thickness ulceration to the right leg measuring 5.4 x 4.0 x 0.1 cm. The wound base to the right leg is granular in nature. No drainage or malodor. Full-thickness wound to the left leg measuring 2.2 x 2.3 x 0.1 cm. Wound base is granular with no sign of infection or drainage. Excisional debridement down to and including subcutaneous tissue with a number 7 mm dermal curette to the right leg full-thickness ulceration without incident. Predebridement measurement was 5.7 x 3.8 x 0.1 cm. Postdebridement measurement is 5.9 x 4.0 x 0.1 cm EpiFix 4.0 x 4.5 cm graft was applied to the right full-thickness ulceration leg with 100% use. First application. The graft site was free and clear of any infection. The wound/skin graft substitute was dressed with nonadherent bandage secured in place with Steri-Strips followed by bolster dressing as well as multilayer compression 3M wrap. Excisional debridement down to including subcutaneous tissue with a number 7 mm dermal curette to the left leg full-thickness ulceration with a center. Predebridement measurement was 2.0 x 2.0 x 0.1 cm. Post debridement measurement is 2.2 x 2.3 x 0.1 cm. Musculoskeletal: Mild palpatory tenderness appreciated to the right and left leg. No pain with calf compression bilateral. Debridement Note Debridement Note Debridement Free Text: Excisional debridement down to and including subcutaneous tissue with a number 7 mm dermal curette to the right leg full-thickness ulceration without incident. Predebridement measurement was 5.7 x 3.8 x 0.1 cm. Postdebridement measurement is 5.9 x 4.0 x 0.1 cm EpiFix 4.0 x 4.5 cm graft was applied to the right full-thickness ulceration leg with 100% use. First application. The graft site was free and clear of any infection. The wound/skin graft substitute was dressed with nonadherent bandage secured in place with Steri-Strips followed by bolster dressing as well as multilayer compression 3M wrap. Excisional debridement down to including subcutaneous tissue with a number 7 mm dermal curette to the left leg full-thickness ulceration with a center. Predebridement measurement was 2.0 x 2.0 x 0.1 cm. Post debridement measurement is 2.2 x 2.3 x 0.1 cm. Post-Debridement Measurements and Additional Note: Post-Debridement Measurements/Treatment WC - Nurse 1 - General Ulcer Assessment Start: 03/27/24 15:49 Freq: Status: Active Protocol: VARGAS.LOWEXT Activity Type Activity Date Activity User E-sign Co-sign Detail Recorded Client Recorded Date Recorded By Document 03/27/24 15:50 BMF [id number] 03/27/24 15:52 BMF Document 03/31/24 15:21 KW [id number] 03/31/24 15:30 KW Document 04/03/24 15:24 KW [id number] 04/03/24 15:26 KW Document 04/07/24 16:03 ML [id number] 04/07/24 16:04 ML Document 04/09/24 13:21 KW [id number] 04/09/24 13:29 KW Document 04/14/24 15:49 DL [id number] 04/14/24 15:52 DL Document 04/17/24 16:09 KW [id number] 04/17/24 16:10 KW Document 04/23/24 13:20 RB [id number] 04/23/24 13:22 RB 03/27/24 03/31/24 04/03/24 15:50 15:21 15:24 WC - Today's Visit Information Type of service Nurse-only Nurse-only Nurse-only Visit Visit Visit Arrival Mode Ambulatory Ambulatory Transfer Assistance None Patient Identification Verified (Name & Yes Yes Yes ) Patient Requires Transmission-Based No Precautions Height and Weight Body Mass Index (BMI) 43.3 43.3 43.3 BMI Classification Obese Obese Obese Vital Signs Temperature (97.8 F-99.1 F) 97.7 F L 96.6 F L 97.2 F L Temperature Source Temporal Temporal Temporal Pulse Rate (60-100) 75 86 Pulse Location Monitor Monitor Monitor Respiratory Rate (12-18) 16 18 16 Respiratory rate source Observation Observation Observation Oxygen Delivery Method Room Air Room Air Room Air Blood Pressure (90/60-120/80) 137/84 H 149/82 H Blood Pressure Mean (mm Hg) 101 104 Source Monitor Monitor Monitor Position Sitting Semi-Fowlers Sitting Blood Pressure Location Left Arm Right Forearm Left Arm History Since Last Visit- (Skip if this is Patient's initial visit) Have you changed medications since your No No No last visit? Any new allergies or adverse reactions No No No Had a fall/change in ADL's that may No No No increase risk of falls Signs or symptoms of abuse and/or No No No neglect since last visit Have you been in the hospital since your No No No last visit? Has dressing in place as prescribed Yes Yes Yes Has compression in place as prescribed Yes Yes Yes Has offloadiing in place as prescribed N/A N/A N/A Experienced any changes in pain level or No No No management Left Footwear Regular Shoe Regular Shoe Regular Shoe Right Footwear Regular Shoe Regular Shoe Regular Shoe Pain Scale: 0-10 Numeric Is Patient Pain Free? Yes Yes Yes bl lower legs -Description Sharp,Burning -Intensity 10 -Alleviating Factors/Interventions Medication, Medicate when due 04/07/24 04/09/24 04/14/24 16:03 13:21 15:49 WC - Today's Visit Information Type of service Nurse-only Follow-up Visit Follow-up Visit Visit (Physician/FOOD AND BEVERAGE ASSISTANT MANAGER (Physician/FOOD AND BEVERAGE ASSISTANT MANAGER ) ) Arrival Mode Ambulatory Ambulatory Ambulatory Transfer Assistance None Patient Identification Verified (Name & Yes Yes Yes ) Patient Requires Transmission-Based No No Precautions Height and Weight Body Mass Index (BMI) 43.3 43.3 43.3 BMI Classification Obese Obese Obese Vital Signs Temperature (97.8 F-99.1 F) 98.1 F 98.4 F Temperature Source Temporal Oral Pulse Rate (60-100) 91 69 Pulse Location Monitor Monitor Respiratory Rate (12-18) 18 18 Respiratory rate source Observation Observation Oxygen Delivery Method Room Air Blood Pressure (90/60-120/80) 149/82 H 168/92 H Blood Pressure Mean (mm Hg) 104 117 Source Monitor Monitor Position Sitting Blood Pressure Location Left Arm History Since Last Visit- (Skip if this is Patient's initial visit) Have you changed medications since your No No No last visit? Any new allergies or adverse reactions No No No Had a fall/change in ADL's that may No No No increase risk of falls Signs or symptoms of abuse and/or No No No neglect since last visit Have you been in the hospital since your No No last visit? Has dressing in place as prescribed Yes Yes No Has compression in place as prescribed N/A Yes Yes Has offloadiing in place as prescribed N/A N/A N/A Experienced any changes in pain level or No No No management Left Footwear Regular Shoe Right Footwear Regular Shoe Pain Scale: 0-10 Numeric Is Patient Pain Free? Yes Yes Yes bl lower legs -Description -Intensity -Alleviating Factors/Interventions 04/17/24 04/23/24 16:09 13:20 WC - Today's Visit Information Type of service Nurse-only Follow-up Visit Visit (Physician/FOOD AND BEVERAGE ASSISTANT MANAGER ) Arrival Mode Ambulatory Ambulatory Transfer Assistance None Patient Identification Verified (Name & Yes Yes ) Patient Requires Transmission-Based No Precautions Height and Weight Body Mass Index (BMI) 43.3 43.3 BMI Classification Obese Obese Vital Signs Temperature (97.8 F-99.1 F) 97 F L Temperature Source Temporal Pulse Rate (60-100) 107 H Pulse Location Monitor Respiratory Rate (12-18) 18 Respiratory rate source Observation Oxygen Delivery Method Blood Pressure (90/60-120/80) 188/107 H Blood Pressure Mean (mm Hg) 134 Source Monitor Position Semi-Fowlers Blood Pressure Location Left Arm History Since Last Visit- (Skip if this is Patient's initial visit) Have you changed medications since your No No last visit? Any new allergies or adverse reactions No No Had a fall/change in ADL's that may No No increase risk of falls Signs or symptoms of abuse and/or No No neglect since last visit Have you been in the hospital since your No No last visit? Has dressing in place as prescribed Yes Yes Has compression in place as prescribed Yes Yes Has offloadiing in place as prescribed N/A N/A Experienced any changes in pain level or No No management Left Footwear Regular Shoe Right Footwear Regular Shoe Pain Scale: 0-10 Numeric Is Patient Pain Free? Yes Yes bl lower legs -Description -Intensity -Alleviating Factors/Interventions WC - Nurse 1 - General Ulcer Measurement Start: 03/27/24 15:49 Freq: Status: Active Protocol: Activity Type Activity Date Activity User E-sign Co-sign Detail Recorded Client Recorded Date Recorded By Document 03/27/24 15:50 BMF [id number] 03/27/24 15:52 BMF Document 04/09/24 13:21 KW [id number] 04/09/24 13:29 KW Document 04/14/24 15:49 DL [id number] 04/14/24 15:52 DL Document 04/23/24 13:20 RB [id number] 04/23/24 13:22 RB 03/27/24 04/09/24 04/14/24 15:50 13:21 15:49 Wound Center Nurse 1 LEFT LATERAL LEG CLUSTER -Combined with other wound -Current Size (cm) - Length 5 -Current Size (cm) - Width 9.2 -Current Size (cm) - Depth 0 -Total Square Cm 46.0 -Date of Last Picture (Recall this 04/09/24 field) -Tunneling -Undermining/Tunneling -Circular Undermining -Exudate Amt Small -Exudate Type Serosanguineous -Wound Margin Distinct, Outline Attached -Granulation Amt Large (67-100%) -Granulation Quality Red -Slough/Fibrin -Necrosis Amt -Necrotic Tissue Type -Structure Exposed -Texture (Ines-wound Skin Appearance) Assessed -Moisture (Ines-wound Skin Appearance) Assessed,Dry/ Scaly -Color (Ines-wound Skin Appearance) Assessed -Temperature (Ines-wound Skin No Abnormality Appearance) (Pt Warm) -Tenderness on Palpation (Ines-wound No Skin Appearance) -Ulcer Cleansing Soap and Water -Foul Odor after Cleansing -Anesthetic Used 5% Lidocaine Gel #1 right lateral leg CLUSTER -Combined with other wound -Current Size (cm) - Length 2.8 -Current Size (cm) - Width 4.2 -Current Size (cm) - Depth 0 -Total Square Cm 11.76 -Date of Last Picture (Recall this 04/09/24 field) -Tunneling -Undermining/Tunneling -Circular Undermining -Exudate Amt Medium -Exudate Type Serosanguineous -Wound Margin Distinct, Outline Attached -Granulation Amt Large (67-100%) -Granulation Quality Red -Slough/Fibrin -Necrosis Amt -Necrotic Tissue Type -Structure Exposed -Texture (Ines-wound Skin Appearance) Assessed -Moisture (Ines-wound Skin Appearance) Assessed,Dry/ Scaly -Color (Ines-wound Skin Appearance) Assessed -Temperature (Ines-wound Skin No Abnormality Appearance) (Pt Warm) -Tenderness on Palpation (Ines-wound No Skin Appearance) -Ulcer Cleansing Soap and Water -Foul Odor after Cleansing No -Anesthetic Used 5% Lidocaine Gel Lower Limb Edema Present Yes Right Calf (cm) 43 45 44.5 Right Ankle (cm) 28.7 29.8 29 Left Calf (cm) 43.8 43.5 45.2 Left Ankle (cm) 28.4 29 29 04/23/24 13:20 Wound Center Nurse 1 LEFT LATERAL LEG CLUSTER -Combined with other wound No -Current Size (cm) - Length 2 -Current Size (cm) - Width 3.5 -Current Size (cm) - Depth 0.1 -Total Square Cm 7.0 -Date of Last Picture (Recall this field) -Tunneling No -Undermining/Tunneling No -Circular Undermining No -Exudate Amt Large -Exudate Type Serosanguineous -Wound Margin Distinct, Outline Attached -Granulation Amt Large (67-100%) -Granulation Quality Stephen -Slough/Fibrin Yes -Necrosis Amt Medium (34-66%) -Necrotic Tissue Type Adherent Slough -Structure Exposed N/A -Texture (Ines-wound Skin Appearance) Assessed -Moisture (Ines-wound Skin Appearance) Assessed -Color (Ines-wound Skin Appearance) Hemosiderin Staining -Temperature (Ines-wound Skin No Abnormality Appearance) (Pt Warm) -Tenderness on Palpation (Ines-wound No Skin Appearance) -Ulcer Cleansing Wound Cleanser -Foul Odor after Cleansing No -Anesthetic Used 5% Lidocaine Gel #1 right lateral leg CLUSTER -Combined with other wound No -Current Size (cm) - Length 6.5 -Current Size (cm) - Width 8 -Current Size (cm) - Depth 0.1 -Total Square Cm 52.0 -Date of Last Picture (Recall this field) -Tunneling No -Undermining/Tunneling No -Circular Undermining No -Exudate Amt Large -Exudate Type Serosanguineous -Wound Margin Distinct, Outline Attached -Granulation Amt Medium (34-66%) -Granulation Quality Stephen -Slough/Fibrin Yes -Necrosis Amt Medium (34-66%) -Necrotic Tissue Type Adherent Slough -Structure Exposed N/A -Texture (Ines-wound Skin Appearance) Assessed -Moisture (Ines-wound Skin Appearance) Assessed -Color (Ines-wound Skin Appearance) Hemosiderin Staining -Temperature (Ines-wound Skin No Abnormality Appearance) (Pt Warm) -Tenderness on Palpation (Ines-wound No Skin Appearance) -Ulcer Cleansing Wound Cleanser -Foul Odor after Cleansing No -Anesthetic Used 5% Lidocaine Gel Lower Limb Edema Present Yes Right Calf (cm) 45.5 Right Ankle (cm) 30.2 Left Calf (cm) 45 Left Ankle (cm) 29.4 WC - Nurse 2 - General Ulcer CM Notes Start: 03/27/24 15:49 Freq: Status: Active Protocol: Activity Type Activity Date Activity User E-sign Co-sign Detail Recorded Client Recorded Date Recorded By Document 04/09/24 13:41 JF [id number] 04/09/24 13:45 JF Document 04/23/24 13:27 JF [id number] 04/23/24 13:32 JF 04/09/24 04/23/24 13:41 13:27 Wound Center Nurse 2 LEFT LATERAL LEG CLUSTER -Time 13:41 13:27 -Correct Patient Yes Yes -Correct Side, Site, Position Yes Yes -Correct Procedure Yes Yes -Procedure Performed Yes Yes -Type of Procedure Debridement Debridement -Clinical Debridement Subcutaneous Subcutaneous -Tissue Removed Subcutaneous Subcutaneous -Post Debridement (cm) - Length 2.4 2.2 -Post Debridement (cm) - Width 2.2 2.3 -Post Debridement (cm) - Depth 0.1 0.1 -Total Square (Post) (cm) 5.28 5.06 -Area of Debridement (cm) - Length 2.4 2.2 -Area of Debridement (cm) - Width 2.2 2.3 -Total Square (Area) (cm) 5.28 5.06 -Tunneling No No -Undermining/Tunneling No No -Circular Undermining No No -Wound/Ulcer Outcome Not Healed Not Healed -Ulcer Cleansing Rinsed/ Rinsed/ Irrigated with Irrigated with Saline Saline -Foul Odor after Cleansing No No -Bioengineered Tissue No No -Bleeding Controlled with Pressure Pressure -Treatment Response Procedure Procedure Tolerated Well Tolerated Well -Offloading No No -Debridement - Subq, 1st 20sq cm No Yes #1 right lateral leg CLUSTER -Time 13:41 13:28 -Correct Patient Yes Yes -Correct Side, Site, Position Yes Yes -Correct Procedure Yes Yes -Procedure Performed Yes Yes -Type of Procedure Debridement Debridement -Clinical Debridement Subcutaneous Subcutaneous -Tissue Removed Subcutaneous Subcutaneous -Post Debridement (cm) - Length 7.5 5.9 -Post Debridement (cm) - Width 4.3 4.0 -Post Debridement (cm) - Depth 0.1 0.1 -Total Square (Post) (cm) 32.25 23.60 -Area of Debridement (cm) - Length 7.5 5.9 -Area of Debridement (cm) - Width 4.3 4 -Total Square (Area) (cm) 32.25 23.6 -Tunneling No No -Undermining/Tunneling No No -Circular Undermining No No -Wound/Ulcer Outcome Not Healed Not Healed -Ulcer Cleansing Rinsed/ Rinsed/ Irrigated with Irrigated with Saline Saline -Foul Odor after Cleansing No No -Bioengineered Tissue No Yes -Type of Bioengineered Tissue Epifix Mesh -Expiration Date 09/23/28 -Product Lot Number [id number] -Percent Used 100 -Lot number of Saline Used [id number] -Bleeding Controlled with Pressure Pressure -Treatment Response Procedure Procedure Tolerated Well Tolerated Well -Offloading No No -Debridement - Subq, 1st 20sq cm Yes No -Debridement, SubQ, ea addt'l 20sq cm 1 or part thereof -Apply Skin Sub - 1st 25 sq cm - Legs 1 -Epifix Mesh (per sq cm) 11 Pain Scale: 0-10 Numeric Is Patient Pain Free? Yes Yes WC - Nurse 3 - General Ulcer D/C NN Start: 03/27/24 15:49 Freq: Status: Active Protocol: Activity Type Activity Date Activity User E-sign Co-sign Detail Recorded Client Recorded Date Recorded By Document 03/27/24 15:50 BMF [id number] 03/27/24 15:52 BMF Document 03/31/24 15:21 KW [id number] 03/31/24 15:30 KW Document 04/03/24 15:24 KW [id number] 04/03/24 15:26 KW Document 04/07/24 16:03 ML [id number] 04/07/24 16:04 ML Document 04/09/24 13:52 KW [id number] 04/09/24 13:57 KW Document 04/14/24 15:49 DL [id number] 04/14/24 15:52 DL Document 04/17/24 16:09 KW [id number] 04/17/24 16:10 KW 03/27/24 03/31/24 04/03/24 15:50 15:21 15:24 Vital Signs Temperature (97.8 F-99.1 F) 97.7 F L 96.6 F L 97.2 F L Temperature Source Temporal Temporal Temporal Pulse Rate (60-100) 75 86 Pulse Location Monitor Monitor Monitor Respiratory Rate (12-18) 16 18 16 Respiratory rate source Observation Observation Observation Oxygen Delivery Method Room Air Room Air Room Air Blood Pressure (90/60-120/80) 137/84 H 149/82 H Blood Pressure Mean (mm Hg) 101 104 Source Monitor Monitor Monitor Position Sitting Semi-Fowlers Sitting Blood Pressure Location Left Arm Right Forearm Left Arm Pain Scale: 0-10 Numeric Is Patient Pain Free? Yes Yes Yes bl lower legs -Description Sharp,Burning -Intensity 10 -Alleviating Factors/Interventions Medication, Medicate when due Wound Care Center Nurse 3 LEFT LATERAL LEG CLUSTER -Ulcer Cleansing Soap and Water Soap and Water Soap and Water -Foul Odor after Cleansing No -Primary Dressing Applied Silvercel Silvercel Silvercel -Primary Dressing Applied -Other Dressing abd -Primary Dressing Covered/Secured with Dry Gauze & Dry Gauze & Dry Gauze & Roll Gauze, Roll Gauze, Roll Gauze, Secured with Secured with Secured with Tape Tape Tape -Silvercel 1 1 1 #1 right lateral leg CLUSTER -Ulcer Cleansing Soap and Water Soap and Water Soap and Water -Foul Odor after Cleansing No -Primary Dressing Applied Silvercel -Other Dressing abd SILVERCEL SILVER -Primary Dressing Covered/Secured with Dry Gauze & Dry Gauze & Dry Gauze & Roll Gauze, Roll Gauze, Roll Gauze, Secured with Secured with Secured with Tape Tape Tape -Silvercel 1 BLE -Lotion applied to leg before Yes compression wrap -Multi-Layered Wrap Application Multi-Layer Multi-Layer Multi-Layer Comp - Bilat ($ Comp - Bilat ($ Comp - Bilat ($ ) ) ) Treatment Response Procedure Tolerated Well WC - Visit Discharge Discharge Condition Stable Stable Stable Ambulatory Status Ambulatory Ambulatory Ambulatory Transportation Private Auto Private Auto Private Auto Medication Reconcilliation completed & No No provided to patient/care provider Clinical Summary of Care Provided Yes Yes 04/07/24 04/09/24 04/14/24 16:03 13:52 15:49 Vital Signs Temperature (97.8 F-99.1 F) 98.4 F Temperature Source Oral Pulse Rate (60-100) 69 Pulse Location Monitor Respiratory Rate (12-18) 18 Respiratory rate source Observation Oxygen Delivery Method Blood Pressure (90/60-120/80) 168/92 H Blood Pressure Mean (mm Hg) 117 Source Monitor Position Blood Pressure Location Pain Scale: 0-10 Numeric Is Patient Pain Free? Yes Yes Yes bl lower legs -Description -Intensity -Alleviating Factors/Interventions Wound Care Center Nurse 3 LEFT LATERAL LEG CLUSTER -Ulcer Cleansing Soap and Water -Foul Odor after Cleansing No -Primary Dressing Applied -Primary Dressing Applied Silvercel -Other Dressing SILVER -Primary Dressing Covered/Secured with Dry Gauze & Dry Gauze & Roll Gauze, Roll Gauze, Secured with Secured with Tape Tape -Silvercel 1 #1 right lateral leg CLUSTER -Ulcer Cleansing Soap and Water -Foul Odor after Cleansing No -Primary Dressing Applied -Other Dressing SILVER silvercell -Primary Dressing Covered/Secured with Dry Gauze & Dry Gauze & Roll Gauze, Roll Gauze, Secured with Secured with Tape Tape -Silvercel 1 BLE -Lotion applied to leg before compression wrap -Multi-Layered Wrap Application Multi-Layer Multi-Layer Multi-Layer Comp - Bilat ($ Comp - Bilat ($ Comp - Bilat ($ ) ) ) Treatment Response Procedure Tolerated Well WC - Visit Discharge Discharge Condition Stable Stable Ambulatory Status Ambulatory Ambulatory Transportation Private Auto Private Auto Medication Reconcilliation completed & No provided to patient/care provider Clinical Summary of Care Provided Yes 04/17/24 16:09 Vital Signs Temperature (97.8 F-99.1 F) Temperature Source Pulse Rate (60-100) Pulse Location Respiratory Rate (12-18) Respiratory rate source Oxygen Delivery Method Blood Pressure (90/60-120/80) Blood Pressure Mean (mm Hg) Source Position Blood Pressure Location Pain Scale: 0-10 Numeric Is Patient Pain Free? Yes bl lower legs -Description -Intensity -Alleviating Factors/Interventions Wound Care Center Nurse 3 LEFT LATERAL LEG CLUSTER -Ulcer Cleansing Soap and Water -Foul Odor after Cleansing -Primary Dressing Applied -Primary Dressing Applied Silvercel -Other Dressing -Primary Dressing Covered/Secured with Dry Gauze & Roll Gauze, Secured with Tape -Silvercel 1 #1 right lateral leg CLUSTER -Ulcer Cleansing -Foul Odor after Cleansing -Primary Dressing Applied -Other Dressing SILVER -Primary Dressing Covered/Secured with Dry Gauze & Roll Gauze, Secured with Tape -Silvercel BLE -Lotion applied to leg before compression wrap -Multi-Layered Wrap Application Multi-Layer Comp - Bilat ($ ) Treatment Response WC - Visit Discharge Discharge Condition Stable Ambulatory Status Ambulatory Transportation Private Auto Medication Reconcilliation completed & No provided to patient/care provider Clinical Summary of Care Provided Yes Assessment/Plan Assessment/Plan (1) Chronic venous hypertension (idiopathic) with ulcer of right lower extremity: CODE(S): I87.311 - Chronic venous hypertension (idiopathic) with ulcer of right lower extremity; L97.919 - Non-pressure chronic ulcer of unspecified part of right lower leg with unspecified severity PLAN: Patient was examined and evaluated. All findings were discussed with the patient. All questions were answered to the patient's satisfaction. Excisional debridement down to and including subcutaneous tissue with a number 7 mm dermal curette to the right leg full-thickness ulceration without incident. Predebridement measurement was 5.7 x 3.8 x 0.1 cm. Postdebridement measurement is 5.9 x 4.0 x 0.1 cm EpiFix 4.0 x 4.5 cm graft was applied to the right full-thickness ulceration leg with 100% use. First application. The graft site was free and clear of any infection. The wound/skin graft substitute was dressed with nonadherent bandage secured in place with Steri-Strips followed by bolster dressing as well as multilayer compression 3M wrap. Excisional debridement down to including subcutaneous tissue with a number 7 mm dermal curette to the left leg full-thickness ulceration with a center. Predebridement measurement was 2.0 x 2.0 x 0.1 cm. Post debridement measurement is 2.2 x 2.3 x 0.1 cm. Left lower extremity cleaned and patted dry. Silver alginate was applied to the full-thickness wound to the left leg followed by multilayer compression 3M wrap. The patient will leave the dressings clean dry and intact. He will use his lymphedema pumps when educated on the use. Patient will follow-up with Dr. Quinones in 1 week. 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
== END 2024-04-25 23:59 | disposition home or self-care (01) ==
LOC: WC 13:15
PROVIDERS: PCP Nurse Practitioner Family; Referring Provider Nurse Practitioner Family; Visit Provider Podiatrist Foot & Ankle Surgery
DX: I87.311 Chronic venous hypertension (idiopathic) with ulcer of right lower extremity (principal); L97.812 Non-pressure chronic ulcer of other part of right lower leg with fat layer exposed; L97.822 Non-pressure chronic ulcer of other part of left lower leg with fat layer exposed; M79.604 Pain in right leg; R60.0 Localized edema
CPT/HCPCS: 11042; 11045; 15271; 29581; Q4186

== ENCOUNTER 2024-05-21 13:15 | Outpatient (RCR) | payer BC, SELFPAY ==
[2024-04-26 01:10] VITALS: BP 188/107; PULSE 107; RESP 18; TEMP 36.1; BMI 43.3
[2024-04-30 13:18] VITALS: BP 127/86; PULSE 87; RESP 18; TEMP 36.3; BMI 43.3
--- NOTE | 2024-04-30 14:37 | PCM.WC.PN ---
History of Present Illness Date of Service: 04/30/24 Chief Complaint: Bilateral leg ulceration History of Wound: Bilateral leg ulcerations Progress of Wound: Bilateral full-thickness leg ulceration stable no sign of infection. Subjective Subjective Mr. Meneses is a 58-year-old male presenting to wound care center today for follow-up evaluation of full-thickness wounds to the bilateral lower extremity. Patient has left his graft clean dry and intact right lower extremity. His multilayer compression bandages have been left on clean dry and intact. He is using his lymphedema pumps and noticed improvement with his leg swelling. Denies trauma. Denies constitutional symptoms. No other pedal complaints at this time. Objective Data Objective Data Vital Signs: Vital Signs Temp Pulse Resp BP 97.4 F L 87 18 127/86 H 04/30/24 13:18 04/30/24 13:18 04/30/24 13:18 04/30/24 13:18 Weight: 129.274 kg Body Mass Index (BMI) 43.3 Physical Exam Narrative Vascular: DP and PT pulse are faintly palpable secondary to edema. CFT is brisk. Erythema improved. Nonpitting edema appreciated bilateral lower extremity. Neurological: Light touch intact. Patient does respond to painful stimuli. Dermatological: Full-thickness ulceration to the right leg measuring 5.8 x 2.2 x 0.1 cm. The wound base to the right leg is granular in nature. No drainage or malodor. Full-thickness wound to the left leg measuring 1.4 x 2.4 x 0.1 cm. Wound base is granular with no sign of infection or drainage. Excisional debridement down to and including subcutaneous tissue with a number 7 mm dermal curette to the right leg full-thickness ulceration without incident. Predebridement measurement was 5.5 x 2.0 x 0.1 cm. Postdebridement measurement is 5.8 x 2.2 x 0.1 cm. EpiFix 4.0 x 4.5 cm graft was applied to the right full-thickness ulceration leg with 100% use. Second application. The graft site was free and clear of any infection. The wound/skin graft substitute was dressed with nonadherent bandage secured in place with Steri-Strips followed by bolster dressing as well as multilayer compression 3M wrap. Excisional debridement down to including subcutaneous tissue with a number 7 mm dermal curette to the left leg full-thickness ulceration with a center. Predebridement measurement was 1.2 x 2.2 x 0.1 cm. Post debridement measurement is 1.4 x 2.4 x 0.1 cm. Musculoskeletal: Mild palpatory tenderness appreciated to the right and left leg. No pain with calf compression bilateral. Debridement Note Debridement Note Debridement Free Text: Excisional debridement down to and including subcutaneous tissue with a number 7 mm dermal curette to the right leg full-thickness ulceration without incident. Predebridement measurement was 5.5 x 2.0 x 0.1 cm. Postdebridement measurement is 5.8 x 2.2 x 0.1 cm. EpiFix 4.0 x 4.5 cm graft was applied to the right full-thickness ulceration leg with 100% use. Second application. The graft site was free and clear of any infection. The wound/skin graft substitute was dressed with nonadherent bandage secured in place with Steri-Strips followed by bolster dressing as well as multilayer compression 3M wrap. Excisional debridement down to including subcutaneous tissue with a number 7 mm dermal curette to the left leg full-thickness ulceration with a center. Predebridement measurement was 1.2 x 2.2 x 0.1 cm. Post debridement measurement is 1.4 x 2.4 x 0.1 cm. Post-Debridement Measurements and Additional Note: Post-Debridement Measurements/Treatment - Nurse 1 - General Ulcer Assessment Start: 04/30/24 13:18 Freq: Status: Active Protocol: WC.LOWEXT Activity Type Activity Date Activity User E-sign Co-sign Detail Recorded Client Recorded Date Recorded By Document 04/30/24 13:18 DL [id number] 04/30/24 13:29 DL 04/30/24 13:18 - Today's Visit Information Type of service Follow-up Visit (Physician/[employer] ) Arrival Mode Ambulatory Transfer Assistance None Patient Identification Verified (Name & Yes ) Patient Requires Transmission-Based No Precautions Height and Weight Body Mass Index (BMI) 43.3 BMI Classification Obese Vital Signs Temperature (97.8 F-99.1 F) 97.4 F L Temperature Source Temporal Pulse Rate (60-100) 87 Pulse Location Monitor Respiratory Rate (12-18) 18 Respiratory rate source Observation Blood Pressure (90/60-120/80) 127/86 H Blood Pressure Mean (mm Hg) 99 Source Monitor History Since Last Visit- (Skip if this is Patient's initial visit) Have you changed medications since your No last visit? Any new allergies or adverse reactions No Had a fall/change in ADL's that may No increase risk of falls Signs or symptoms of abuse and/or No neglect since last visit Have you been in the hospital since your No last visit? Has dressing in place as prescribed Yes Has compression in place as prescribed Yes Has offloadiing in place as prescribed N/A Experienced any changes in pain level or No management Pain Scale: 0-10 Numeric Is Patient Pain Free? Yes WC - Nurse 1 - General Ulcer Measurement Start: 04/30/24 13:18 Freq: Status: Active Protocol: Activity Type Activity Date Activity User E-sign Co-sign Detail Recorded Client Recorded Date Recorded By Document 04/30/24 13:18 DL [id number] 04/30/24 13:29 DL 04/30/24 13:18 Wound Center Nurse 1 LEFT LATERAL LEG CLUSTER -Current Size (cm) - Length 1.6 -Current Size (cm) - Width 2.1 -Current Size (cm) - Depth 0.2 -Total Square Cm 3.36 -Exudate Amt Medium -Exudate Type Serosanguineous -Wound Margin Distinct, Outline Attached -Granulation Amt Medium (34-66%) -Granulation Quality Red -Necrosis Amt Medium (34-66%) -Necrotic Tissue Type Adherent Slough -Structure Exposed N/A -Texture (Ines-wound Skin Appearance) Scarring -Moisture (Ines-wound Skin Appearance) No Abnormality -Color (Ines-wound Skin Appearance) No Abnormality, Hemosiderin Staining -Temperature (Ines-wound Skin No Abnormality Appearance) (Pt Warm) -Ulcer Cleansing Soap and Water -Foul Odor after Cleansing No -Anesthetic Used 5% Lidocaine Gel #1 right lateral leg CLUSTER -Current Size (cm) - Length 5.6 -Current Size (cm) - Width 3.3 -Current Size (cm) - Depth 0.2 -Total Square Cm 18.48 -Exudate Amt Medium -Exudate Type Serosanguineous -Wound Margin Distinct, Outline Attached -Granulation Amt Medium (34-66%) -Granulation Quality Red -Necrosis Amt Medium (34-66%) -Necrotic Tissue Type Adherent Slough -Structure Exposed N/A -Texture (Ines-wound Skin Appearance) Scarring -Moisture (Ines-wound Skin Appearance) No Abnormality -Color (Ines-wound Skin Appearance) Hemosiderin Staining -Temperature (Ines-wound Skin No Abnormality Appearance) (Pt Warm) -Ulcer Cleansing Soap and Water -Foul Odor after Cleansing No -Anesthetic Used 5% Lidocaine Gel Right Calf (cm) 44 Right Ankle (cm) 28 Left Calf (cm) 43.8 Left Ankle (cm) 27 WC - Nurse 2 - General Ulcer CM Notes Start: 04/30/24 13:18 Freq: Status: Active Protocol: Activity Type Activity Date Activity User E-sign Co-sign Detail Recorded Client Recorded Date Recorded By Document 04/30/24 13:36 DS [id number] 04/30/24 13:47 DS 04/30/24 13:36 Wound Center Nurse 2 LEFT LATERAL LEG CLUSTER -Time 13:37 -Correct Patient Yes -Correct Side, Site, Position Yes -Correct Procedure Yes -Procedure Performed Yes -Type of Procedure Debridement -Clinical Debridement Subcutaneous -Tissue Removed Subcutaneous -Post Debridement (cm) - Length 1.4 -Post Debridement (cm) - Width 2.4 -Post Debridement (cm) - Depth 0.1 -Total Square (Post) (cm) 3.36 -Area of Debridement (cm) - Length 1.4 -Area of Debridement (cm) - Width 2.4 -Total Square (Area) (cm) 3.36 -Tunneling No -Undermining/Tunneling No -Circular Undermining No -Wound/Ulcer Outcome Not Healed -Ulcer Cleansing Rinsed/ Irrigated with Saline -Foul Odor after Cleansing No -Bioengineered Tissue No -Bleeding Controlled with Pressure -Treatment Response Procedure Tolerated Well -Debridement - Subq, 1st 20sq cm Yes #1 right lateral leg CLUSTER -Time 13:37 -Correct Patient Yes -Correct Side, Site, Position Yes -Correct Procedure Yes -Procedure Performed Yes -Type of Procedure Debridement -Clinical Debridement Subcutaneous -Tissue Removed Subcutaneous -Post Debridement (cm) - Length 5.8 -Post Debridement (cm) - Width 2.2 -Post Debridement (cm) - Depth 0.1 -Total Square (Post) (cm) 12.76 -Area of Debridement (cm) - Length 5.8 -Area of Debridement (cm) - Width 2.2 -Total Square (Area) (cm) 12.76 -Tunneling No -Undermining/Tunneling No -Circular Undermining No -Wound/Ulcer Outcome Not Healed -Ulcer Cleansing Rinsed/ Irrigated with Saline -Foul Odor after Cleansing No -Bioengineered Tissue Yes -Type of Bioengineered Tissue Epifix Mesh -Expiration Date 10/24/28 -Product Lot Number [id number] -Percent Used 100 -Lot number of Saline Used [id number] -Bleeding Controlled with Pressure -Treatment Response Procedure Tolerated Well -Debridement - Subq, 1st 20sq cm No -Apply Skin Sub - 1st 25 sq cm - Legs 1 -Epifix Mesh (per sq cm) 11 Pain Scale: 0-10 Numeric Is Patient Pain Free? Yes - Nurse 3 - General Ulcer D/C NN Start: 04/30/24 13:18 Freq: Status: Active Protocol: Activity Type Activity Date Activity User E-sign Co-sign Detail Recorded Client Recorded Date Recorded By Document 04/30/24 14:07 DL [id number] 04/30/24 14:09 DL 04/30/24 14:07 Wound Care Center Nurse 3 LEFT LATERAL LEG CLUSTER -Ulcer Cleansing Not Cleansed -Primary Dressing Applied Aquacel Extra -Primary Dressing Covered/Secured with Dry Gauze & Roll Gauze, Secured with Tape -Other Covering ABD -Aquacel Extra 1 #1 right lateral leg CLUSTER -Primary Dressing Applied Optilok 6.5x10 -Primary Dressing Covered/Secured with Dry Gauze & Roll Gauze, Secured with Tape -Optilok 6.5x10 1 Ines-Wound Care Lotion BLE -Multi-Layered Wrap Application Multi-Layer Comp - Bilat ($ ) Treatment Response Procedure Tolerated Well Pain Scale: 0-10 Numeric Is Patient Pain Free? Yes - Visit Discharge Discharge Condition Stable Ambulatory Status Ambulatory Transportation Private Auto Assessment/Plan Assessment/Plan (1) Chronic venous hypertension (idiopathic) with ulcer of right lower extremity: CODE(S): I87.311 - Chronic venous hypertension (idiopathic) with ulcer of right lower extremity; L97.919 - Non-pressure chronic ulcer of unspecified part of right lower leg with unspecified severity PLAN: Patient was examined and evaluated. All findings were discussed with the patient. All questions were answered to the patient's satisfaction. Excisional debridement down to and including subcutaneous tissue with a number 7 mm dermal curette to the right leg full-thickness ulceration without incident. Predebridement measurement was 5.5 x 2.0 x 0.1 cm. Postdebridement measurement is 5.8 x 2.2 x 0.1 cm. EpiFix 4.0 x 4.5 cm graft was applied to the right full-thickness ulceration leg with 100% use. Second application. The graft site was free and clear of any infection. The wound/skin graft substitute was dressed with nonadherent bandage secured in place with Steri-Strips followed by bolster dressing as well as multilayer compression 3M wrap. Excisional debridement down to including subcutaneous tissue with a number 7 mm dermal curette to the left leg full-thickness ulceration with a center. Predebridement measurement was 1.2 x 2.2 x 0.1 cm. Post debridement measurement is 1.4 x 2.4 x 0.1 cm. The left lower extremities were cleaned and patted dry. Bolster dressing and multilayer compression 3M wrap was applied. Patient will continue to ambulate as tolerated. He will use his lymphedema pumps 2-3 times per day and when able. Follow-up at the wound care center with Dr. Quinones in 1 week. 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
[2024-05-07 13:27] VITALS: BP 136/89; PULSE 78; RESP 18; TEMP 36.4; BMI 43.3
--- NOTE | 2024-05-07 15:05 | PN.PCM_ITS ---
History of Present Illness Date of Service: 05/07/24 Chief Complaint: Bilateral leg ulceration History of Wound: Bilateral leg ulcerations Progress of Wound: Bilateral full-thickness leg ulceration stable no sign of infection. Subjective Subjective Mr. Meneses is a 58-year-old male presenting with care center today for follow-up evaluation of full-thickness wound to bilateral extremity. He has left his multilayer compression bandages clean dry and intact. He denies any pain to the right lower extremity. He is grateful for his care. He is improving every week. Denies trauma. Denies constitutional symptoms. No other pedal complaints at this time. Objective Data Objective Data Vital Signs: Vital Signs Temp Pulse Resp BP 97.6 F L 78 18 136/89 H 05/07/24 13:27 05/07/24 13:27 05/07/24 13:05/07/24 13: Weight: 129.274 kg Body Mass Index (BMI) 43.3 Physical Exam Narrative Vascular: DP and PT pulse are faintly palpable secondary to edema. CFT is brisk. No erythema nonpitting edema appreciated bilateral lower extremity. Neurological: Light touch intact. Patient does respond to painful stimuli. Dermatological: Full-thickness ulceration to the right leg measuring 6.0 x 1.8 x 0.1 cm. The wound base to the right leg is granular in nature. No drainage or malodor. Full-thickness wound to the left leg measuring 1.1 x 1.4 x 0.1 cm. Wound base is granular with no sign of infection or drainage. Excisional debridement down to and including subcutaneous tissue with a number 7 mm dermal curette to the right leg full-thickness ulceration without incident. Predebridement measurement was 5.8 x 1.6 x 0.1 cm. Postdebridement measurement is 6.0 x 1.8 x 0.1 cm. EpiFix 4.0 x 4.5 cm graft was applied to the right full-thickness ulceration leg with 100% use. Third application. The graft site was free and clear of any infection. The wound/skin graft substitute was dressed with nonadherent bandage secured in place with Steri-Strips followed by bolster dressing as well as multilayer compression 3M wrap. Excisional debridement down to including subcutaneous tissue with a number 7 mm dermal curette to the left leg full-thickness ulceration with a center. Predebridement measurement was 1.0 x 1.2 x 0.1 cm. Post debridement measurement is 1.1 x 1.4 x 0.1 cm. Musculoskeletal: Mild palpatory tenderness appreciated to the right and left leg, improving. No pain with calf compression bilateral. Debridement Note Debridement Note Post-Debridement Measurements and Additional Note: Post-Debridement Measurements/Treatment VARGAS - Nurse 1 - General Ulcer Assessment Start: 04/30/24 13:18 Freq: Status: Active Protocol: TERENCE Activity Type Activity Date Activity User E-sign Co-sign Detail Recorded Client Recorded Date Recorded By Document 04/30/24 13:18 DL [id number] 04/30/24 13:29 DL Document 05/07/24 13:27 DL [id number] 05/07/24 13:39 DL 04/30/24 05/07/24 13:18 13:27 WC - Today's Visit Information Type of service Follow-up Visit Follow-up Visit (Physician/LIVESTOCK CARETAKER (Physician/LIVESTOCK CARETAKER ) ) Arrival Mode Ambulatory Ambulatory Transfer Assistance None None Patient Identification Verified (Name & Yes Yes ) Patient Requires Transmission-Based No No Precautions Height and Weight Body Mass Index (BMI) 43.3 43.3 BMI Classification Obese Obese Vital Signs Temperature (97.8 F-99.1 F) 97.4 F L 97.6 F L Temperature Source Temporal Temporal Pulse Rate (60-100) 87 78 Pulse Location Monitor Monitor Respiratory Rate (12-18) 18 18 Respiratory rate source Observation Observation Blood Pressure (90/60-120/80) 127/86 H 136/89 H Blood Pressure Mean (mm Hg) 99 104 Source Monitor Monitor History Since Last Visit- (Skip if this is Patient's initial visit) Have you changed medications since your No No last visit? Any new allergies or adverse reactions No No Had a fall/change in ADL's that may No No increase risk of falls Signs or symptoms of abuse and/or No No neglect since last visit Have you been in the hospital since your No No last visit? Has dressing in place as prescribed Yes Yes Has compression in place as prescribed Yes Yes Has offloadiing in place as prescribed N/A N/A Experienced any changes in pain level or No No management Pain Scale: 0-10 Numeric Is Patient Pain Free? Yes Yes VARGAS - Nurse 1 - General Ulcer Measurement Start: 04/30/24 13:18 Freq: Status: Active Protocol: Activity Type Activity Date Activity User E-sign Co-sign Detail Recorded Client Recorded Date Recorded By Document 04/30/24 13:18 DL [id number] 04/30/24 13:29 DL Document 05/07/24 13:27 DL [id number] 05/07/24 13:39 DL 04/30/24 05/07/24 13:18 13:27 Wound Center Nurse 1 LEFT LATERAL LEG CLUSTER -Current Size (cm) - Length 1.6 0.7 -Current Size (cm) - Width 2.1 1.3 -Current Size (cm) - Depth 0.2 0.1 -Total Square Cm 3.36 0.91 -Exudate Amt Medium Small -Exudate Type Serosanguineous Serosanguineous -Wound Margin Distinct, Distinct, Outline Outline Attached Attached -Granulation Amt Medium (34-66%) Small (1-33%) -Granulation Quality Red Palmer -Necrosis Amt Medium (34-66%) Large (67-100%) -Necrotic Tissue Type Adherent Slough Adherent Slough -Structure Exposed N/A N/A -Texture (Ines-wound Skin Appearance) Scarring Scarring -Moisture (Ines-wound Skin Appearance) No Abnormality No Abnormality -Color (Ines-wound Skin Appearance) No Abnormality, Hemosiderin Hemosiderin Staining Staining -Temperature (Ines-wound Skin No Abnormality No Abnormality Appearance) (Pt Warm) (Pt Warm) -Tenderness on Palpation (Ines-wound No Skin Appearance) -Ulcer Cleansing Soap and Water Soap and Water -Foul Odor after Cleansing No No -Anesthetic Used 5% Lidocaine 5% Lidocaine Gel Gel #1 right lateral leg CLUSTER -Current Size (cm) - Length 5.6 4 -Current Size (cm) - Width 3.3 3 -Current Size (cm) - Depth 0.2 0.1 -Total Square Cm 18.48 12 -Exudate Amt Medium Small -Exudate Type Serosanguineous Serosanguineous -Wound Margin Distinct, Distinct, Outline Outline Attached Attached -Granulation Amt Medium (34-66%) Medium (34-66%) -Granulation Quality Red Red -Necrosis Amt Medium (34-66%) Medium (34-66%) -Necrotic Tissue Type Adherent Slough Adherent Slough -Structure Exposed N/A N/A -Texture (Ines-wound Skin Appearance) Scarring Scarring -Moisture (Ines-wound Skin Appearance) No Abnormality No Abnormality -Color (Ines-wound Skin Appearance) Hemosiderin Hemosiderin Staining Staining -Temperature (Ines-wound Skin No Abnormality No Abnormality Appearance) (Pt Warm) (Pt Warm) -Ulcer Cleansing Soap and Water Soap and Water -Foul Odor after Cleansing No No -Anesthetic Used 5% Lidocaine 5% Lidocaine Gel Gel Right Calf (cm) 44 44 Right Ankle (cm) 28 28.5 Left Calf (cm) 43.8 44 Left Ankle (cm) 27 28 WC - Nurse 2 - General Ulcer CM Notes Start: 04/30/24 13:18 Freq: Status: Active Protocol: Activity Type Activity Date Activity User E-sign Co-sign Detail Recorded Client Recorded Date Recorded By Document 04/30/24 13:36 DS [id number] 04/30/24 13:47 DS Document 05/07/24 13:46 BMF [id number] 05/07/24 13:53 BMF 04/30/24 05/07/24 13:36 13:46 Wound Center Nurse 2 LEFT LATERAL LEG CLUSTER -Time 13:37 13:46 -Correct Patient Yes Yes -Correct Side, Site, Position Yes Yes -Correct Procedure Yes Yes -Procedure Performed Yes Yes -Type of Procedure Debridement Debridement -Clinical Debridement Subcutaneous Subcutaneous -Tissue Removed Subcutaneous Subcutaneous -Post Debridement (cm) - Length 1.4 1.1 -Post Debridement (cm) - Width 2.4 1.4 -Post Debridement (cm) - Depth 0.1 0.1 -Total Square (Post) (cm) 3.36 1.54 -Area of Debridement (cm) - Length 1.4 1.1 -Area of Debridement (cm) - Width 2.4 1.4 -Total Square (Area) (cm) 3.36 1.54 -Tunneling No No -Undermining/Tunneling No No -Circular Undermining No No -Wound/Ulcer Outcome Not Healed Not Healed -Ulcer Cleansing Rinsed/ Rinsed/ Irrigated with Irrigated with Saline Saline -Foul Odor after Cleansing No No -Bioengineered Tissue No -Bleeding Controlled with Pressure Pressure -Treatment Response Procedure Procedure Tolerated Well Tolerated Well -Debridement - Subq, 1st 20sq cm Yes Yes #1 right lateral leg CLUSTER -Time 13:37 13:47 -Correct Patient Yes Yes -Correct Side, Site, Position Yes Yes -Correct Procedure Yes Yes -Procedure Performed Yes Yes -Type of Procedure Debridement Debridement -Clinical Debridement Subcutaneous Subcutaneous -Tissue Removed Subcutaneous Subcutaneous -Post Debridement (cm) - Length 5.8 6 -Post Debridement (cm) - Width 2.2 1.8 -Post Debridement (cm) - Depth 0.1 0.1 -Total Square (Post) (cm) 12.76 10.8 -Area of Debridement (cm) - Length 5.8 6 -Area of Debridement (cm) - Width 2.2 1.8 -Total Square (Area) (cm) 12.76 10.8 -Tunneling No No -Undermining/Tunneling No No -Circular Undermining No No -Wound/Ulcer Outcome Not Healed Not Healed -Ulcer Cleansing Rinsed/ Rinsed/ Irrigated with Irrigated with Saline Saline -Foul Odor after Cleansing No No -Bioengineered Tissue Yes Yes -Type of Bioengineered Tissue Epifix Mesh Epifix Mesh -Expiration Date 10/24/28 07/24/28 -Product Lot Number [id number] -Percent Used 100 100 -Lot number of Saline Used [id number] -Bleeding Controlled with Pressure Pressure -Treatment Response Procedure Procedure Tolerated Well Tolerated Well -Debridement - Subq, 1st 20sq cm No No -Apply Skin Sub - 1st 25 sq cm - Legs 1 1 -Epifix Mesh (per sq cm) 11 11 Pain Scale: 0-10 Numeric Is Patient Pain Free? Yes Yes WC - Nurse 3 - General Ulcer D/C NN Start: 04/30/24 13:18 Freq: Status: Active Protocol: Activity Type Activity Date Activity User E-sign Co-sign Detail Recorded Client Recorded Date Recorded By Document 04/30/24 14:07 DL [id number] 04/30/24 14:09 DL Document 05/07/24 14:11 DL [id number] 05/07/24 14:12 DL 04/30/24 05/07/24 14:07 14:11 Wound Care Center Nurse 3 LEFT LATERAL LEG CLUSTER -Ulcer Cleansing Not Cleansed -Foul Odor after Cleansing No -Primary Dressing Applied Aquacel Extra -Other Dressing EPI -Primary Dressing Covered/Secured with Dry Gauze & Roll Gauze, Secured with Tape -Other Covering ABD abd -Aquacel Extra 1 #1 right lateral leg CLUSTER -Foul Odor after Cleansing No -Primary Dressing Applied Optilok 6.5x10 -Other Dressing Epi -Primary Dressing Covered/Secured with Dry Gauze & Roll Gauze, Secured with Tape -Other Covering ABD -Optilok 6.5x10 1 Ines-Wound Care Lotion BLE -Multi-Layered Wrap Application Multi-Layer Multi-Layer Comp - Bilat ($ Comp - Bilat ($ ) ) Treatment Response Procedure Procedure Tolerated Well Tolerated Well Pain Scale: 0-10 Numeric Is Patient Pain Free? Yes Yes WC - Visit Discharge Discharge Condition Stable Stable Ambulatory Status Ambulatory Ambulatory Transportation Private Auto Private Auto Assessment/Plan Assessment/Plan (1) Chronic venous hypertension (idiopathic) with ulcer of right lower extremity: CODE(S): I87.311 - Chronic venous hypertension (idiopathic) with ulcer of right lower extremity; L97.919 - Non-pressure chronic ulcer of unspecified part of right lower leg with unspecified severity PLAN: Patient was examined and evaluated. All findings were discussed with the patient. All questions were answered to the patient's satisfaction. Excisional debridement down to and including subcutaneous tissue with a number 7 mm dermal curette to the right leg full-thickness ulceration without incident. Predebridement measurement was 5.8 x 1.6 x 0.1 cm. Postdebridement measurement is 6.0 x 1.8 x 0.1 cm. EpiFix 4.0 x 4.5 cm graft was applied to the right full-thickness ulceration leg with 100% use. Third application. The graft site was free and clear of any infection. The wound/skin graft substitute was dressed with nonadherent bandage secured in place with Steri-Strips followed by bolster dressing as well as multilayer compression 3M wrap. Excisional debridement down to including subcutaneous tissue with a number 7 mm dermal curette to the left leg full-thickness ulceration with a center. Predebridement measurement was 1.0 x 1.2 x 0.1 cm. Post debridement measurement is 1.1 x 1.4 x 0.1 cm. The left lower extremities were cleaned and patted dry. Bolster dressing and multilayer compression 3M wrap was applied. Patient will continue to ambulate as tolerated. He will use his lymphedema pumps 2-3 times per day and when able. Follow-up at the wound care center with Dr. Quinones in 1 week. 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
--- NOTE | 2024-05-14 13:29 | PCM.WC.PN ---
History of Present Illness Date of Service: 05/14/24 Chief Complaint: Bilateral leg ulceration History of Wound: Bilateral leg ulcerations Progress of Wound: Bilateral full-thickness leg ulceration stable no sign of infection. Subjective Subjective Mr. Hope is a 58-year-old male presented wound care center today for follow-up evaluation of bilateral full-thickness wounds. Patient has been getting amniotic skin graft substitute applied to right lower extremity. He notices great improvement to both legs with multilayer compression bandages. He is using his pumps at home. He admits his pain is improved. He can ambulate as tolerated without pain. Denies trauma. Denies constitutional symptoms. Other pedal complaints at this time. Objective Data Objective Data Vital Signs: Vital Signs Temp Pulse Resp BP 97.6 F L 78 18 136/89 H 05/07/24 13:27 05/07/24 13:27 05/07/24 13:27 05/07/24 13:27 Weight: 129.274 kg Body Mass Index (BMI) 43.3 Physical Exam Narrative Vascular: DP and PT pulse are faintly palpable secondary to edema. CFT is brisk. No erythema nonpitting edema appreciated bilateral lower extremity. Neurological: Light touch intact. Patient does respond to painful stimuli. Dermatological: Full-thickness ulceration to the right leg measuring 2.5 x 1.7 x 0.1 cm. The wound base to the right leg is granular in nature. No drainage or malodor. Full-thickness wound to the left leg measuring 0.9 x 1.7 x 0.1 cm.. Wound base is granular with no sign of infection or drainage. Excisional debridement down to and including subcutaneous tissue with a number 5 mm dermal curette to the right leg full-thickness ulceration without incident. Predebridement measurement was 2.3 x 1.5 x 0.1 cm. Postdebridement measurement is 2.5 x 1.7 x 0.1 cm EpiFix 4.0 x 4.5 cm graft was applied to the right full-thickness ulceration leg with 100% use. Fourth application. The graft site was free and clear of any infection. The wound/skin graft substitute was dressed with nonadherent bandage secured in place with Steri-Strips followed by bolster dressing as well as multilayer compression 3M wrap. Excisional debridement down to including subcutaneous tissue with a number 5 mm dermal curette to the left leg full-thickness ulceration with a center. Predebridement measurement was 0.7 x 1.5 x 0.1 cm. Post debridement measurement is 0.9 x 1.7 x 0.1 cm. Musculoskeletal: Mild palpatory tenderness appreciated to the right and left leg, improving. No pain with calf compression bilateral. Debridement Note Debridement Note Debridement Free Text: Excisional debridement down to and including subcutaneous tissue with a number 5 mm dermal curette to the right leg full-thickness ulceration without incident. Predebridement measurement was 2.3 x 1.5 x 0.1 cm. Postdebridement measurement is 2.5 x 1.7 x 0.1 cm EpiFix 4.0 x 4.5 cm graft was applied to the right full-thickness ulceration leg with 100% use. Fourth application. The graft site was free and clear of any infection. The wound/skin graft substitute was dressed with nonadherent bandage secured in place with Steri-Strips followed by bolster dressing as well as multilayer compression 3M wrap. Excisional debridement down to including subcutaneous tissue with a number 5 mm dermal curette to the left leg full-thickness ulceration with a center. Predebridement measurement was 0.7 x 1.5 x 0.1 cm. Post debridement measurement is 0.9 x 1.7 x 0.1 cm. Post-Debridement Measurements and Additional Note: Post-Debridement Measurements/Treatment WC - Nurse 1 - General Ulcer Assessment Start: 04/30/24 13:18 Freq: Status: Active Protocol: VARGAS.LOWEXT Activity Type Activity Date Activity User E-sign Co-sign Detail Recorded Client Recorded Date Recorded By Document 04/30/24 13:18 DL [id number] 04/30/24 13:29 DL Document 05/07/24 13:27 DL [id number] 05/07/24 13:39 DL 04/30/24 05/07/24 13:18 13:27 WC - Today's Visit Information Type of service Follow-up Visit Follow-up Visit (Physician/NETBACKUP ENGINEER (Physician/NETBACKUP ENGINEER ) ) Arrival Mode Ambulatory Ambulatory Transfer Assistance None None Patient Identification Verified (Name & Yes Yes ) Patient Requires Transmission-Based No No Precautions Height and Weight Body Mass Index (BMI) 43.3 43.3 BMI Classification Obese Obese Vital Signs Temperature (97.8 F-99.1 F) 97.4 F L 97.6 F L Temperature Source Temporal Temporal Pulse Rate (60-100) 87 78 Pulse Location Monitor Monitor Respiratory Rate (12-18) 18 18 Respiratory rate source Observation Observation Blood Pressure (90/60-120/80) 127/86 H 136/89 H Blood Pressure Mean (mm Hg) 99 104 Source Monitor Monitor History Since Last Visit- (Skip if this is Patient's initial visit) Have you changed medications since your No No last visit? Any new allergies or adverse reactions No No Had a fall/change in ADL's that may No No increase risk of falls Signs or symptoms of abuse and/or No No neglect since last visit Have you been in the hospital since your No No last visit? Has dressing in place as prescribed Yes Yes Has compression in place as prescribed Yes Yes Has offloadiing in place as prescribed N/A N/A Experienced any changes in pain level or No No management Pain Scale: 0-10 Numeric Is Patient Pain Free? Yes Yes WC - Nurse 1 - General Ulcer Measurement Start: 04/30/24 13:18 Freq: Status: Active Protocol: Activity Type Activity Date Activity User E-sign Co-sign Detail Recorded Client Recorded Date Recorded By Document 04/30/24 13:18 DL [id number] 04/30/24 13:29 DL Document 05/07/24 13:27 DL [id number] 05/07/24 13:39 DL 04/30/24 05/07/24 13:18 13:27 Wound Center Nurse 1 LEFT LATERAL LEG CLUSTER -Current Size (cm) - Length 1.6 0.7 -Current Size (cm) - Width 2.1 1.3 -Current Size (cm) - Depth 0.2 0.1 -Total Square Cm 3.36 0.91 -Exudate Amt Medium Small -Exudate Type Serosanguineous Serosanguineous -Wound Margin Distinct, Distinct, Outline Outline Attached Attached -Granulation Amt Medium (34-66%) Small (1-33%) -Granulation Quality Red [place] -Necrosis Amt Medium (34-66%) Large (67-100%) -Necrotic Tissue Type Adherent Slough Adherent Slough -Structure Exposed N/A N/A -Texture (Ines-wound Skin Appearance) Scarring Scarring -Moisture (Ines-wound Skin Appearance) No Abnormality No Abnormality -Color (Ines-wound Skin Appearance) No Abnormality, Hemosiderin Hemosiderin Staining Staining -Temperature (Ines-wound Skin No Abnormality No Abnormality Appearance) (Pt Warm) (Pt Warm) -Tenderness on Palpation (Ines-wound No Skin Appearance) -Ulcer Cleansing Soap and Water Soap and Water -Foul Odor after Cleansing No No -Anesthetic Used 5% Lidocaine 5% Lidocaine Gel Gel #1 right lateral leg CLUSTER -Current Size (cm) - Length 5.6 4 -Current Size (cm) - Width 3.3 3 -Current Size (cm) - Depth 0.2 0.1 -Total Square Cm 18.48 12 -Exudate Amt Medium Small -Exudate Type Serosanguineous Serosanguineous -Wound Margin Distinct, Distinct, Outline Outline Attached Attached -Granulation Amt Medium (34-66%) Medium (34-66%) -Granulation Quality Red Red -Necrosis Amt Medium (34-66%) Medium (34-66%) -Necrotic Tissue Type Adherent Slough Adherent Slough -Structure Exposed N/A N/A -Texture (Ines-wound Skin Appearance) Scarring Scarring -Moisture (Ines-wound Skin Appearance) No Abnormality No Abnormality -Color (Ines-wound Skin Appearance) Hemosiderin Hemosiderin Staining Staining -Temperature (Ines-wound Skin No Abnormality No Abnormality Appearance) (Pt Warm) (Pt Warm) -Ulcer Cleansing Soap and Water Soap and Water -Foul Odor after Cleansing No No -Anesthetic Used 5% Lidocaine 5% Lidocaine Gel Gel Right Calf (cm) 44 44 Right Ankle (cm) 28 28.5 Left Calf (cm) 43.8 44 Left Ankle (cm) 27 28 WC - Nurse 2 - General Ulcer CM Notes Start: 04/30/24 13:18 Freq: Status: Active Protocol: Activity Type Activity Date Activity User E-sign Co-sign Detail Recorded Client Recorded Date Recorded By Document 04/30/24 13:36 DS [id number] 04/30/24 13:47 DS Document 05/07/24 13:46 [facility] [id number] 05/07/24 13:53 BMF 04/30/24 05/07/24 13:36 13:46 Wound Center Nurse 2 LEFT LATERAL LEG CLUSTER -Time 13:37 13:46 -Correct Patient Yes Yes -Correct Side, Site, Position Yes Yes -Correct Procedure Yes Yes -Procedure Performed Yes Yes -Type of Procedure Debridement Debridement -Clinical Debridement Subcutaneous Subcutaneous -Tissue Removed Subcutaneous Subcutaneous -Post Debridement (cm) - Length 1.4 1.1 -Post Debridement (cm) - Width 2.4 1.4 -Post Debridement (cm) - Depth 0.1 0.1 -Total Square (Post) (cm) 3.36 1.54 -Area of Debridement (cm) - Length 1.4 1.1 -Area of Debridement (cm) - Width 2.4 1.4 -Total Square (Area) (cm) 3.36 1.54 -Tunneling No No -Undermining/Tunneling No No -Circular Undermining No No -Wound/Ulcer Outcome Not Healed Not Healed -Ulcer Cleansing Rinsed/ Rinsed/ Irrigated with Irrigated with Saline Saline -Foul Odor after Cleansing No No -Bioengineered Tissue No -Bleeding Controlled with Pressure Pressure -Treatment Response Procedure Procedure Tolerated Well Tolerated Well -Debridement - Subq, 1st 20sq cm Yes Yes #1 right lateral leg CLUSTER -Time 13:37 13:47 -Correct Patient Yes Yes -Correct Side, Site, Position Yes Yes -Correct Procedure Yes Yes -Procedure Performed Yes Yes -Type of Procedure Debridement Debridement -Clinical Debridement Subcutaneous Subcutaneous -Tissue Removed Subcutaneous Subcutaneous -Post Debridement (cm) - Length 5.8 6 -Post Debridement (cm) - Width 2.2 1.8 -Post Debridement (cm) - Depth 0.1 0.1 -Total Square (Post) (cm) 12.76 10.8 -Area of Debridement (cm) - Length 5.8 6 -Area of Debridement (cm) - Width 2.2 1.8 -Total Square (Area) (cm) 12.76 10.8 -Tunneling No No -Undermining/Tunneling No No -Circular Undermining No No -Wound/Ulcer Outcome Not Healed Not Healed -Ulcer Cleansing Rinsed/ Rinsed/ Irrigated with Irrigated with Saline Saline -Foul Odor after Cleansing No No -Bioengineered Tissue Yes Yes -Type of Bioengineered Tissue Epifix Mesh Epifix Mesh -Expiration Date 10/24/28 07/24/28 -Product Lot Number [id number] -Percent Used 100 100 -Lot number of Saline Used [id number] -Bleeding Controlled with Pressure Pressure -Treatment Response Procedure Procedure Tolerated Well Tolerated Well -Debridement - Subq, 1st 20sq cm No No -Apply Skin Sub - 1st 25 sq cm - Legs 1 1 -Epifix Mesh (per sq cm) 11 11 Pain Scale: 0-10 Numeric Is Patient Pain Free? Yes Yes - Nurse 3 - General Ulcer D/C NN Start: 04/30/24 13:18 Freq: Status: Active Protocol: Activity Type Activity Date Activity User E-sign Co-sign Detail Recorded Client Recorded Date Recorded By Document 04/30/24 14:07 DL [id number] 04/30/24 14:09 DL Document 05/07/24 14:11 DL [id number] 05/07/24 14:12 DL 04/30/24 05/07/24 14:07 14:11 Wound Care Center Nurse 3 LEFT LATERAL LEG CLUSTER -Ulcer Cleansing Not Cleansed -Foul Odor after Cleansing No -Primary Dressing Applied Aquacel Extra -Other Dressing EPI -Primary Dressing Covered/Secured with Dry Gauze & Roll Gauze, Secured with Tape -Other Covering ABD abd -Aquacel Extra 1 #1 right lateral leg CLUSTER -Foul Odor after Cleansing No -Primary Dressing Applied Optilok 6.5x10 -Other Dressing Epi -Primary Dressing Covered/Secured with Dry Gauze & Roll Gauze, Secured with Tape -Other Covering ABD -Optilok 6.5x10 1 Ines-Wound Care Lotion BLE -Multi-Layered Wrap Application Multi-Layer Multi-Layer Comp - Bilat ($ Comp - Bilat ($ ) ) Treatment Response Procedure Procedure Tolerated Well Tolerated Well Pain Scale: 0-10 Numeric Is Patient Pain Free? Yes Yes - Visit Discharge Discharge Condition Stable Stable Ambulatory Status Ambulatory Ambulatory Transportation Private Auto Private Auto Assessment/Plan Assessment/Plan (1) Chronic venous hypertension (idiopathic) with ulcer of right lower extremity: CODE(S): I87.311 - Chronic venous hypertension (idiopathic) with ulcer of right lower extremity; L97.919 - Non-pressure chronic ulcer of unspecified part of right lower leg with unspecified severity PLAN: Patient was examined and evaluated. All findings were discussed with the patient. All questions were answered to the patient's satisfaction. Excisional debridement down to and including subcutaneous tissue with a number 5 mm dermal curette to the right leg full-thickness ulceration without incident. Predebridement measurement was 2.3 x 1.5 x 0.1 cm. Postdebridement measurement is 2.5 x 1.7 x 0.1 cm EpiFix 4.0 x 4.5 cm graft was applied to the right full-thickness ulceration leg with 100% use. Fourth application. The graft site was free and clear of any infection. The wound/skin graft substitute was dressed with nonadherent bandage secured in place with Steri-Strips followed by bolster dressing as well as multilayer compression 3M wrap. Excisional debridement down to including subcutaneous tissue with a number 5 mm dermal curette to the left leg full-thickness ulceration with a center. Predebridement measurement was 0.7 x 1.5 x 0.1 cm. Post debridement measurement is 0.9 x 1.7 x 0.1 cm. The bilateral lower extremities were cleaned and patted dry. Patient was dressed in multi layer compression CircAid's and educated on their operation. Patient will continue to ambulate as tolerated. He will use his lymphedema pumps 2-3 times per day and when able. Follow-up at the wound care center with Dr. Quinones in 1 week. 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
[2024-05-14 13:36] VITALS: BP 129/70; PULSE 80; RESP 16; TEMP 36.6; BMI 43.3
[2024-05-21 13:24] VITALS: BP 129/75; PULSE 89; RESP 18; TEMP 36.1; BMI 43.3
--- NOTE | 2024-05-21 13:50 | PN.PCM_ITS ---
History of Present Illness Date of Service: 05/21/24 Chief Complaint: Bilateral leg ulceration History of Wound: Bilateral leg ulcerations Progress of Wound: Bilateral full-thickness leg ulceration stable no sign of infection. Subjective Subjective Mr. Meneses is a 58-year-old male presenting to wound care center today for follow-up evaluation of full-thickness wounds to bilateral lower extremity, with amniotic skin graft substitute to right lower extremity. Patient has been compliant with his, pression wraps and has changed them as discussed. He states he has no pain to bilateral lower extremity. He is doing well. Denies trauma. Denies constitutional symptoms. No other pedal complaints at this time Objective Data Objective Data Vital Signs: Vital Signs Temp Pulse Resp BP O2 Del Method 97 F L 89 18 129/75 H Room Air 05/21/24 13:24 05/21/24 13:24 05/21/24 13:24 05/21/24 13:24 05/21/24 13:24 Oxygen Delivery Method Room Air Weight: 129.274 kg Body Mass Index (BMI) 43.3 Physical Exam Narrative Vascular: DP and PT pulse are faintly palpable secondary to edema. CFT is brisk. No erythema nonpitting edema appreciated bilateral lower extremity. Neurological: Light touch intact. Patient does respond to painful stimuli. Dermatological: Full-thickness ulceration to the right leg measuring 2.2 x 1.8 x 0.1 cm. The wound base to the right leg is granular in nature. No drainage or malodor. Full-thickness wound to the left leg measuring 0.8 x 1.0 x 0.1 cm wound base is granular with no sign of infection or drainage. Excisional debridement down to and including subcutaneous tissue with a number 5 mm dermal curette to the right leg full-thickness ulceration without incident. Predebridement measurement was 1.9 x 1.5 x 0.1 cm. Postdebridement measurement is 2.2 x 1.8 x 0.1 cm. EpiFix 2.0 x 2.0 cm graft was applied to the right full-thickness ulceration leg with 100% use. Fifth application. The graft site was free and clear of any infection. The wound/skin graft substitute was dressed with nonadherent bandage secured in place with Steri-Strips followed by bolster dressing as well as multilayer compression 3M wrap. Excisional debridement down to including subcutaneous tissue with a number 5 mm dermal curette to the left leg full-thickness ulceration with a center. Predebridement measurement was 0.6 x 0.6 x 0.1 cm. Post debridement measurement is 0.8 x 1.0 x 0.1 cm. Musculoskeletal: Mild palpatory tenderness appreciated to the right and left leg, improving. No pain with calf compression bilateral. Debridement Note Debridement Note Post-Debridement Measurements and Additional Note: Post-Debridement Measurements/Treatment - Nurse 1 - General Ulcer Assessment Start: 04/30/24 13:18 Freq: Status: Active Protocol: [email or web address].[email or web address] Activity Type Activity Date Activity User E-sign Co-sign Detail Recorded Client Recorded Date Recorded By Document 04/30/24 13:18 DL [id number] 04/30/24 13:29 DL Document 05/07/24 13:27 DL [id number] 05/07/24 13:39 DL Document 05/14/24 13:36 BMF [id number] 05/14/24 13:43 BMF Document 05/21/24 13:24 MT [id number] 05/21/24 13:32 MT 04/30/24 05/07/24 05/14/24 13:18 13:27 13:36 - Today's Visit Information Type of service Follow-up Visit Follow-up Visit Follow-up Visit (Physician/DIVISION TRAFFIC SUPERINTENDENT (Physician/DIVISION TRAFFIC SUPERINTENDENT (Physician/DIVISION TRAFFIC SUPERINTENDENT ) ) ) Arrival Mode Ambulatory Ambulatory Ambulatory Transfer Assistance None None None Accompanied by Patient Identification Verified (Name & Yes Yes Yes ) Patient Requires Transmission-Based No No No Precautions Safety Precautions Height and Weight Body Mass Index (BMI) 43.3 43.3 43.3 BMI Classification Obese Obese Obese Vital Signs Temperature (97.8 F-99.1 F) 97.4 F L 97.6 F L 97.8 F Temperature Source Temporal Temporal Temporal Pulse Rate (60-100) 87 78 80 Pulse Location Monitor Monitor Monitor Respiratory Rate (12-18) 18 18 16 Respiratory rate source Observation Observation Observation Oxygen Delivery Method Room Air Blood Pressure (90/60-120/80) 127/86 H 136/89 H 129/70 H Blood Pressure Mean (mm Hg) 99 104 89 Source Monitor Monitor Monitor Position Sitting Blood Pressure Location Right Arm History Since Last Visit- (Skip if this is Patient's initial visit) Have you changed medications since your No No No last visit? Any new allergies or adverse reactions No No No Had a fall/change in ADL's that may No No No increase risk of falls Signs or symptoms of abuse and/or No No No neglect since last visit Have you been in the hospital since your No No No last visit? Has dressing in place as prescribed Yes Yes Yes Has compression in place as prescribed Yes Yes Yes Has offloadiing in place as prescribed N/A N/A N/A Experienced any changes in pain level or No No No management Left Footwear Regular Shoe Right Footwear Regular Shoe Pain Scale: 0-10 Numeric Is Patient Pain Free? Yes Yes Yes 05/21/24 13:24 - Today's Visit Information Type of service Follow-up Visit (Physician/DIVISION TRAFFIC SUPERINTENDENT ) Arrival Mode Ambulatory Transfer Assistance Accompanied by SELF Patient Identification Verified (Name & Yes ) Patient Requires Transmission-Based Precautions Safety Precautions Fall Prevention Height and Weight Body Mass Index (BMI) 43.3 BMI Classification Obese Vital Signs Temperature (97.8 F-99.1 F) 97 F L Temperature Source Temporal Pulse Rate (60-100) 89 Pulse Location Monitor Respiratory Rate (12-18) 18 Respiratory rate source Observation Oxygen Delivery Method Room Air Blood Pressure (90/60-120/80) 129/75 H Blood Pressure Mean (mm Hg) 93 Source Monitor Position Sitting Blood Pressure Location Right Arm History Since Last Visit- (Skip if this is Patient's initial visit) Have you changed medications since your last visit? Any new allergies or adverse reactions Had a fall/change in ADL's that may increase risk of falls Signs or symptoms of abuse and/or neglect since last visit Have you been in the hospital since your last visit? Has dressing in place as prescribed Yes Has compression in place as prescribed Yes Has offloadiing in place as prescribed Yes Experienced any changes in pain level or Yes management Left Footwear Regular Shoe Right Footwear Regular Shoe Pain Scale: 0-10 Numeric Is Patient Pain Free? Yes - Nurse 1 - General Ulcer Measurement Start: 04/30/24 13:18 Freq: Status: Active Protocol: Activity Type Activity Date Activity User E-sign Co-sign Detail Recorded Client Recorded Date Recorded By Document 04/30/24 13:18 DL [id number] 04/30/24 13:29 DL Document 05/07/24 13:27 DL [id number] 05/07/24 13:39 DL Document 05/14/24 13:36 [facility] [id number] 05/14/24 13:43 BM Document 05/21/24 13:24 KS [id number] 05/21/24 13:32 KS 04/30/24 05/07/24 05/14/24 13:18 13:27 13:36 Wound Center Nurse 1 LEFT LATERAL LEG CLUSTER -Current Size (cm) - Length 1.6 0.7 0.6 -Current Size (cm) - Width 2.1 1.3 1.3 -Current Size (cm) - Depth 0.2 0.1 0.1 -Total Square Cm 3.36 0.91 0.78 -Photo Taken No -Tunneling No -Undermining/Tunneling No -Circular Undermining No -Exudate Amt Medium Small Small -Exudate Type Serosanguineous Serosanguineous Serosanguineous -Wound Margin Distinct, Distinct, Flat & Intact Outline Outline Attached Attached -Granulation Amt Medium (34-66%) Small (1-33%) Medium (34-66%) -Granulation Quality Red [place] Pale,[place] -Necrosis Amt Medium (34-66%) Large (67-100%) Medium (34-66%) -Necrotic Tissue Type Adherent Slough Adherent Slough Adherent Slough -Structure Exposed N/A N/A -Texture (Ines-wound Skin Appearance) Scarring Scarring Assessed -Moisture (Ines-wound Skin Appearance) No Abnormality No Abnormality Assessed -Color (Ines-wound Skin Appearance) No Abnormality, Hemosiderin Assessed Hemosiderin Staining Staining -Temperature (Ines-wound Skin No Abnormality No Abnormality No Abnormality Appearance) (Pt Warm) (Pt Warm) (Pt Warm) -Tenderness on Palpation (Ines-wound No No Skin Appearance) -Ulcer Cleansing Soap and Water Soap and Water Soap and Water -Foul Odor after Cleansing No No No -Anesthetic Used 5% Lidocaine 5% Lidocaine 4% Lidocaine Gel Gel Solution #1 right lateral leg CLUSTER -Current Size (cm) - Length 5.6 4 1.5 -Current Size (cm) - Width 3.3 3 1.4 -Current Size (cm) - Depth 0.2 0.1 0.1 -Total Square Cm 18.48 12 2.10 -Photo Taken No -Tunneling No -Undermining/Tunneling No -Circular Undermining No -Exudate Amt Medium Small Medium -Exudate Type Serosanguineous Serosanguineous Serosanguineous -Wound Margin Distinct, Distinct, Flat & Intact Outline Outline Attached Attached -Granulation Amt Medium (34-66%) Medium (34-66%) Medium (34-66%) -Granulation Quality Red Red Pale,[place] -Necrosis Amt Medium (34-66%) Medium (34-66%) Medium (34-66%) -Necrotic Tissue Type Adherent Slough Adherent Slough Adherent Slough -Structure Exposed N/A N/A -Texture (Ines-wound Skin Appearance) Scarring Scarring Assessed -Moisture (Ines-wound Skin Appearance) No Abnormality No Abnormality Assessed -Color (Ines-wound Skin Appearance) Hemosiderin Hemosiderin Assessed Staining Staining -Temperature (Ines-wound Skin No Abnormality No Abnormality No Abnormality Appearance) (Pt Warm) (Pt Warm) (Pt Warm) -Tenderness on Palpation (Ines-wound No Skin Appearance) -Ulcer Cleansing Soap and Water Soap and Water Soap and Water -Foul Odor after Cleansing No No No -Anesthetic Used 5% Lidocaine 5% Lidocaine 4% Lidocaine Gel Gel Solution Right Calf (cm) 44 44 43.7 Right Ankle (cm) 28 28.5 29.4 Left Calf (cm) 43.8 44 43.7 Left Ankle (cm) 27 28 28.1 Left Foot (cm) 05/21/24 13:24 Wound Center Nurse 1 LEFT LATERAL LEG CLUSTER -Current Size (cm) - Length 0.5 -Current Size (cm) - Width 0.5 -Current Size (cm) - Depth 0.2 -Total Square Cm 0.25 -Photo Taken -Tunneling -Undermining/Tunneling -Circular Undermining -Exudate Amt Medium -Exudate Type Serous -Wound Margin Flat & Intact -Granulation Amt Medium (34-66%) -Granulation Quality Pale,[place] -Necrosis Amt Medium (34-66%) -Necrotic Tissue Type Adherent Slough -Structure Exposed -Texture (Ines-wound Skin Appearance) Assessed -Moisture (Ines-wound Skin Appearance) Assessed -Color (Ines-wound Skin Appearance) Assessed -Temperature (Ines-wound Skin No Abnormality Appearance) (Pt Warm) -Tenderness on Palpation (Ines-wound No Skin Appearance) -Ulcer Cleansing Soap and Water -Foul Odor after Cleansing No -Anesthetic Used 5% Lidocaine Gel #1 right lateral leg CLUSTER -Current Size (cm) - Length 1.5 -Current Size (cm) - Width 1.5 -Current Size (cm) - Depth 0.1 -Total Square Cm 2.25 -Photo Taken -Tunneling -Undermining/Tunneling -Circular Undermining -Exudate Amt Medium -Exudate Type Serosanguineous -Wound Margin Flat & Intact -Granulation Amt Medium (34-66%) -Granulation Quality Pale,[place] -Necrosis Amt Medium (34-66%) -Necrotic Tissue Type Adherent Slough -Structure Exposed -Texture (Ines-wound Skin Appearance) Assessed -Moisture (Ines-wound Skin Appearance) Assessed -Color (Ines-wound Skin Appearance) Assessed -Temperature (Ines-wound Skin No Abnormality Appearance) (Pt Warm) -Tenderness on Palpation (Ines-wound No Skin Appearance) -Ulcer Cleansing Soap and Water -Foul Odor after Cleansing No -Anesthetic Used 5% Lidocaine Gel Right Calf (cm) 42 Right Ankle (cm) 28 Left Calf (cm) Left Ankle (cm) 42 Left Foot (cm) 28 WC - Nurse 2 - General Ulcer CM Notes Start: 04/30/24 13:18 Freq: Status: Active Protocol: Activity Type Activity Date Activity User E-sign Co-sign Detail Recorded Client Recorded Date Recorded By Document 04/30/24 13:36 DS [id number] 04/30/24 13:47 DS Document 05/07/24 13:46 [facility] [id number] 05/07/24 13:53 [facility] Document 05/14/24 13:54 JF [id number] 05/14/24 14:01 Document 05/21/24 13:36 [id number] 05/21/24 13:41 04/30/24 05/07/24 05/14/24 13:36 13:46 13:54 Wound Center Nurse 2 LEFT LATERAL LEG CLUSTER -Time 13:37 13:46 13:55 -Correct Patient Yes Yes Yes -Correct Side, Site, Position Yes Yes Yes -Correct Procedure Yes Yes Yes -Procedure Performed Yes Yes Yes -Type of Procedure Debridement Debridement Debridement -Clinical Debridement Subcutaneous Subcutaneous Subcutaneous -Tissue Removed Subcutaneous Subcutaneous Subcutaneous -Post Debridement (cm) - Length 1.4 1.1 0.9 -Post Debridement (cm) - Width 2.4 1.4 1.7 -Post Debridement (cm) - Depth 0.1 0.1 0.1 -Total Square (Post) (cm) 3.36 1.54 1.53 -Area of Debridement (cm) - Length 1.4 1.1 0.9 -Area of Debridement (cm) - Width 2.4 1.4 1.7 -Total Square (Area) (cm) 3.36 1.54 1.53 -Tunneling No No No -Undermining/Tunneling No No No -Circular Undermining No No No -Wound/Ulcer Outcome Not Healed Not Healed Not Healed -Ulcer Cleansing Rinsed/ Rinsed/ Rinsed/ Irrigated with Irrigated with Irrigated with Saline Saline Saline -Foul Odor after Cleansing No No No -Bioengineered Tissue No No -Bleeding Controlled with Pressure Pressure Pressure -Treatment Response Procedure Procedure Procedure Tolerated Well Tolerated Well Tolerated Well -Offloading No -Debridement - Subq, 1st 20sq cm Yes Yes Yes #1 right lateral leg CLUSTER -Time 13:37 13:47 13:55 -Correct Patient Yes Yes Yes -Correct Side, Site, Position Yes Yes Yes -Correct Procedure Yes Yes Yes -Procedure Performed Yes Yes Yes -Type of Procedure Debridement Debridement Debridement -Clinical Debridement Subcutaneous Subcutaneous Subcutaneous -Tissue Removed Subcutaneous Subcutaneous Subcutaneous -Post Debridement (cm) - Length 5.8 6 2.5 -Post Debridement (cm) - Width 2.2 1.8 1.7 -Post Debridement (cm) - Depth 0.1 0.1 0.1 -Total Square (Post) (cm) 12.76 10.8 4.25 -Area of Debridement (cm) - Length 5.8 6 2.5 -Area of Debridement (cm) - Width 2.2 1.8 1.7 -Total Square (Area) (cm) 12.76 10.8 4.25 -Tunneling No No No -Undermining/Tunneling No No No -Circular Undermining No No No -Wound/Ulcer Outcome Not Healed Not Healed Not Healed -Ulcer Cleansing Rinsed/ Rinsed/ Rinsed/ Irrigated with Irrigated with Irrigated with Saline Saline Saline -Foul Odor after Cleansing No No No -Bioengineered Tissue Yes Yes Yes -Type of Bioengineered Tissue Epifix Mesh Epifix Mesh Epifix Mesh -Expiration Date 10/24/28 07/24/28 10/24/28 -Product Lot Number [id number] -Percent Used 100 100 100 -Lot number of Saline Used [id number] -Bleeding Controlled with Pressure Pressure Pressure -Treatment Response Procedure Procedure Procedure Tolerated Well Tolerated Well Tolerated Well -Offloading No -Debridement - Subq, 1st 20sq cm No No No -Apply Skin Sub - 1st 25 sq cm - Legs 1 1 1 -Epifix (per sq cm) -Epifix Mesh (per sq cm) 11 11 11 Pain Scale: 0-10 Numeric Is Patient Pain Free? Yes Yes Yes 05/21/24 13:36 Wound Center Nurse 2 LEFT LATERAL LEG CLUSTER -Time 13:39 -Correct Patient Yes -Correct Side, Site, Position Yes -Correct Procedure Yes -Procedure Performed Yes -Type of Procedure Debridement -Clinical Debridement Subcutaneous -Tissue Removed Subcutaneous -Post Debridement (cm) - Length 0.8 -Post Debridement (cm) - Width 1.0 -Post Debridement (cm) - Depth 0.1 -Total Square (Post) (cm) 0.80 -Area of Debridement (cm) - Length 0.8 -Area of Debridement (cm) - Width 1.0 -Total Square (Area) (cm) 0.80 -Tunneling No -Undermining/Tunneling No -Circular Undermining No -Wound/Ulcer Outcome Not Healed -Ulcer Cleansing Rinsed/ Irrigated with Saline -Foul Odor after Cleansing No -Bioengineered Tissue No -Bleeding Controlled with Pressure -Treatment Response Procedure Tolerated Well -Offloading No -Debridement - Subq, 1st 20sq cm Yes #1 right lateral leg CLUSTER -Time 13:40 -Correct Patient Yes -Correct Side, Site, Position Yes -Correct Procedure Yes -Procedure Performed Yes -Type of Procedure Debridement -Clinical Debridement Subcutaneous -Tissue Removed Subcutaneous -Post Debridement (cm) - Length 2.2 -Post Debridement (cm) - Width 1.8 -Post Debridement (cm) - Depth 0.1 -Total Square (Post) (cm) 3.96 -Area of Debridement (cm) - Length 2.2 -Area of Debridement (cm) - Width 1.8 -Total Square (Area) (cm) 3.96 -Tunneling No -Undermining/Tunneling No -Circular Undermining No -Wound/Ulcer Outcome Not Healed -Ulcer Cleansing Rinsed/ Irrigated with Saline -Foul Odor after Cleansing No -Bioengineered Tissue Yes -Type of Bioengineered Tissue Epifix -Expiration Date 12/24/28 -Product Lot Number [id number] -Percent Used 100 -Lot number of Saline Used [id number] -Bleeding Controlled with Pressure -Treatment Response Procedure Tolerated Well -Offloading No -Debridement - Subq, 1st 20sq cm No -Apply Skin Sub - 1st 25 sq cm - Legs 1 -Epifix (per sq cm) 4 -Epifix Mesh (per sq cm) Pain Scale: 0-10 Numeric Is Patient Pain Free? Yes - Nurse 3 - General Ulcer D/C NN Start: 04/30/24 13:18 Freq: Status: Active Protocol: Activity Type Activity Date Activity User E-sign Co-sign Detail Recorded Client Recorded Date Recorded By Document 04/30/24 14:07 DL [id number] 04/30/24 14:09 DL Document 05/07/24 14:11 DL [id number] 05/07/24 14:12 DL Document 05/14/24 14:01 [id number] 05/14/24 14:02 JF Document 05/14/24 14:08 BM [id number] 05/14/24 14:09 BMF 04/30/24 05/07/24 05/14/24 14:07 14:11 14:01 Wound Care Center Nurse 3 LEFT LATERAL LEG CLUSTER -Ulcer Cleansing Not Cleansed -Foul Odor after Cleansing No -Primary Dressing Applied Aquacel Extra -Other Dressing EPI -Primary Dressing Covered/Secured with Dry Gauze & Roll Gauze, Secured with Tape -Other Covering ABD abd -Aquacel Extra 1 #1 right lateral leg CLUSTER -Foul Odor after Cleansing No -Primary Dressing Applied Optilok 6.5x10 -Other Dressing Epi -Primary Dressing Covered/Secured with Dry Gauze & Roll Gauze, Secured with Tape -Other Covering ABD -Optilok 6.5x10 1 Ines-Wound Care Lotion BLE -Multi-Layered Wrap Application Multi-Layer Multi-Layer Comp - Bilat ($ Comp - Bilat ($ ) ) Treatment Response Procedure Procedure Tolerated Well Tolerated Well Pain Scale: 0-10 Numeric Is Patient Pain Free? Yes Yes Yes - Visit Discharge Discharge Condition Stable Stable Stable Ambulatory Status Ambulatory Ambulatory Ambulatory Transportation Private Auto Private Auto Private Auto Medication Reconcilliation completed & Yes provided to patient/care provider Clinical Summary of Care Provided Yes LEFT LATERAL LEG CLUSTER -Ulcer Cleansing Rinsed/ Irrigated with Saline -Foul Odor after Cleansing No -Other Dressing -Primary Dressing Covered/Secured with Dry Gauze & Roll Gauze, Secured with Tape -Other Covering #1 right lateral leg CLUSTER -Ulcer Cleansing Rinsed/ Irrigated with Saline -Foul Odor after Cleansing No -Other Dressing -Primary Dressing Covered/Secured with Dry Gauze & Roll Gauze, Secured with Tape -Other Covering BLE -Stockings Yes: cIRCAIDS -Other Treatment Response 05/14/24 14:08 Wound Care Center Nurse 3 LEFT LATERAL LEG CLUSTER -Ulcer Cleansing -Foul Odor after Cleansing -Primary Dressing Applied -Other Dressing -Primary Dressing Covered/Secured with -Other Covering -Aquacel Extra #1 right lateral leg CLUSTER -Foul Odor after Cleansing -Primary Dressing Applied -Other Dressing -Primary Dressing Covered/Secured with -Other Covering -Optilok 6.5x10 Ines-Wound Care BLE -Multi-Layered Wrap Application Treatment Response Pain Scale: 0-10 Numeric Is Patient Pain Free? Yes WC - Visit Discharge Discharge Condition Stable Ambulatory Status Ambulatory Transportation Private Auto Medication Reconcilliation completed & provided to patient/care provider Clinical Summary of Care Provided LEFT LATERAL LEG CLUSTER -Ulcer Cleansing -Foul Odor after Cleansing -Other Dressing EPIMESH, -Primary Dressing Covered/Secured with Dry Gauze & Roll Gauze, Secured with Tape -Other Covering DRSG PER MT RN #1 right lateral leg CLUSTER -Ulcer Cleansing -Foul Odor after Cleansing -Other Dressing EPIMESH; -Primary Dressing Covered/Secured with Dry Gauze & Roll Gauze, Secured with Tape -Other Covering DRSG PER MT RN BLE -Stockings -Other EDUCATED ON CIRCAID APPLICATION AND CARE Treatment Response Procedure Tolerated Well Assessment/Plan Assessment/Plan (1) Chronic venous hypertension (idiopathic) with ulcer of right lower extremity: CODE(S): I87.311 - Chronic venous hypertension (idiopathic) with ulcer of right lower extremity; L97.919 - Non-pressure chronic ulcer of unspecified part of right lower leg with unspecified severity PLAN: Patient was examined and evaluated. All findings were discussed with the patient. All questions were answered to the patient's satisfaction. Excisional debridement down to and including subcutaneous tissue with a number 5 mm dermal curette to the right leg full-thickness ulceration without incident. Predebridement measurement was 1.9 x 1.5 x 0.1 cm. Postdebridement measurement is 2.2 x 1.8 x 0.1 cm. EpiFix 2.0 x 2.0 cm graft was applied to the right full-thickness ulceration leg with 100% use. Fifth application. The graft site was free and clear of any infection. The wound/skin graft substitute was dressed with nonadherent bandage secured in place with Steri-Strips followed by bolster dressing as well as multilayer compression 3M wrap. Excisional debridement down to including subcutaneous tissue with a number 5 mm dermal curette to the left leg full-thickness ulceration with a center. Predebridement measurement was 0.6 x 0.6 x 0.1 cm. Post debridement measurement is 0.8 x 1.0 x 0.1 cm. The bilateral lower extremities were cleaned and patted dry. Patient was kiki ssed in multi layer compression CircAid's and educated on their operation. Patient will continue to ambulate as tolerated. He will use his lymphedema pumps 2-3 times per day and when able. Follow-up at the wound care center with Dr. Quinones in 1 week. 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
== END 2024-05-23 23:59 | disposition home or self-care (01) ==
LOC: WC 13:15
PROVIDERS: PCP Nurse Practitioner Family; Referring Provider Nurse Practitioner Family; Visit Provider Podiatrist Foot & Ankle Surgery
DX: I87.311 Chronic venous hypertension (idiopathic) with ulcer of right lower extremity (principal); L97.812 Non-pressure chronic ulcer of other part of right lower leg with fat layer exposed; L97.222 Non-pressure chronic ulcer of left calf with fat layer exposed
CPT/HCPCS: 11042; 15271; 29581; Q4186

== ENCOUNTER 2024-06-18 13:15 | Outpatient (RCR) | payer BC, SELFPAY ==
[2024-05-24 01:55] VITALS: BP 129/75; PULSE 89; RESP 18; TEMP 36.1; BMI 43.3
[2024-05-28 13:13] VITALS: RESP 18; BMI 43.3
[2024-05-28 13:25] VITALS: BP 137/81; PULSE 88; RESP 18; TEMP 36.1; BMI 43.3
--- NOTE | 2024-05-28 13:47 | PCM.WC.PN ---
History of Present Illness Date of Service: 05/28/24 Chief Complaint: Bilateral leg ulceration History of Wound: Bilateral leg ulcerations Progress of Wound: Bilateral full-thickness wound improving. Subjective Subjective Mr. Meneses is a 58-year-old male presented wound care center today follow-up evaluation of full-thickness wound amniotic skin graft substitute to the right leg. He also has a small full-thickness wound to left leg. He is using compression wraps. No pain to the bilateral extremity. He is using his pneumatic compression 2 times per day at home. He still works 40+ hours a week. Denies any trauma. Denies constitutional symptoms. No pedal complaints at this time. Objective Data Objective Data Vital Signs: Vital Signs Temp Pulse Resp BP O2 Del Method 97 F L 88 18 137/81 H Room Air 05/28/24 13:25 05/28/24 13:25 05/28/24 13:25 05/28/24 13:25 05/28/24 13:25 Oxygen Delivery Method Room Air Weight: 129.274 kg Body Mass Index (BMI) 43.3 Physical Exam Narrative Vascular: DP and PT pulse are faintly palpable secondary to edema. CFT is brisk. No erythema nonpitting edema appreciated bilateral lower extremity. Neurological: Light touch intact. Patient does respond to painful stimuli. Dermatological: Full-thickness ulceration to the right leg measuring 1.5 x 1.3 x 0.1 cm. The wound base to the right leg is granular in nature. No drainage or malodor. Full-thickness wound to the left leg measuring 0.3 x 0.3 x 0.1 cm. Wound base is granular with no sign of infection or drainage. Evidence of mild blanchable erythema to the left leg. Excisional debridement down to and including subcutaneous tissue with a number 5 mm dermal curette to the right leg full-thickness ulceration without incident. Predebridement measurement was 1.3 x 1.1 x 0.1 cm. Postdebridement measurement is 1.5 x 1.3 x 0.1 cm. EpiFix 2.0 x 2.0 cm graft was applied to the right full-thickness ulceration leg with 100% use. Sixth application. The graft site was free and clear of any infection. The wound/skin graft substitute was dressed with nonadherent bandage secured in place with Steri-Strips followed by bolster dressing as well as multilayer compression 3M wrap. Excisional debridement down to including subcutaneous tissue with a number 5 mm dermal curette to the left leg full-thickness ulceration with a center. Predebridement measurement was 0.2 x 0.2 x 0.1 cm. Post debridement measurement is 0.3 x 0.3 x 0.1 cm. Musculoskeletal: Mild palpatory tenderness appreciated to the right and left leg, improving. No pain with calf compression bilateral. Debridement Note Debridement Note Debridement Free Text: Excisional debridement down to and including subcutaneous tissue with a number 5 mm dermal curette to the right leg full-thickness ulceration without incident. Predebridement measurement was 1.3 x 1.1 x 0.1 cm. Postdebridement measurement is 1.5 x 1.3 x 0.1 cm. EpiFix 2.0 x 2.0 cm graft was applied to the right full-thickness ulceration leg with 100% use. Sixth application. The graft site was free and clear of any infection. The wound/skin graft substitute was dressed with nonadherent bandage secured in place with Steri-Strips followed by bolster dressing as well as multilayer compression 3M wrap. Excisional debridement down to including subcutaneous tissue with a number 5 mm dermal curette to the left leg full-thickness ulceration with a center. Predebridement measurement was 0.2 x 0.2 x 0.1 cm. Post debridement measurement is 0.3 x 0.3 x 0.1 cm. Post-Debridement Measurements and Additional Note: Post-Debridement Measurements/Treatment - Nurse 1 - General Ulcer Assessment Start: 05/28/24 13:12 Freq: Status: Active Protocol: TERENCE Activity Type Activity Date Activity User E-sign Co-sign Detail Recorded Client Recorded Date Recorded By Document 05/28/24 13:13 AK [id number] 05/28/24 13:23 MT Document 05/28/24 13:25 AK [id number] 05/28/24 13:26 MT 05/28/24 05/28/24 13:13 13:25 - Today's Visit Information Type of service Follow-up Visit Follow-up Visit (Physician/PRINCIPAL LAW CLERK (Physician/PRINCIPAL LAW CLERK ) ) Arrival Mode Ambulatory Ambulatory Accompanied by self Patient Identification Verified (Name & Yes ) Safety Precautions Fall Prevention Height and Weight Body Mass Index (BMI) 43.3 43.3 BMI Classification Obese Obese Vital Signs Temperature (97.8 F-99.1 F) 97 F L Temperature Source Temporal Temporal Pulse Rate (60-100) 88 Pulse Location Monitor Monitor Respiratory Rate (12-18) 18 18 Respiratory rate source Observation Observation Oxygen Delivery Method Room Air Room Air Blood Pressure (90/60-120/80) 137/81 H Blood Pressure Mean (mm Hg) 99 Source Monitor Monitor Position Sitting Sitting Blood Pressure Location Left Arm Left Arm History Since Last Visit- (Skip if this is Patient's initial visit) Has dressing in place as prescribed Yes Yes Has compression in place as prescribed Yes Yes Has offloadiing in place as prescribed Yes Yes Experienced any changes in pain level or Yes Yes management Left Footwear Regular Shoe Regular Shoe Right Footwear Regular Shoe Regular Shoe Pain Scale: 0-10 Numeric Is Patient Pain Free? Yes No WC - Nurse 1 - General Ulcer Measurement Start: 05/28/24 13:12 Freq: Status: Active Protocol: Activity Type Activity Date Activity User E-sign Co-sign Detail Recorded Client Recorded Date Recorded By Document 05/28/24 13:13 AK [id number] 05/28/24 13:23 AK 05/28/24 13:13 Wound Center Nurse 1 LEFT LATERAL LEG CLUSTER -Current Size (cm) - Length 0.1 -Current Size (cm) - Width 0.1 -Current Size (cm) - Depth 0.1 -Total Square Cm 0.01 -Epithelialization Large 67-100% -Exudate Amt Medium -Exudate Type Serosanguineous -Wound Margin Flat & Intact -Granulation Amt Large (67-100%) -Granulation Quality Pale,[place] -Necrosis Amt Small (1-33%) -Necrotic Tissue Type Adherent Slough -Texture (Ines-wound Skin Appearance) Assessed -Moisture (Ines-wound Skin Appearance) Assessed, Maceration -Color (Ines-wound Skin Appearance) Assessed, Hemosiderin Staining -Temperature (Ines-wound Skin No Abnormality Appearance) (Pt Warm) -Tenderness on Palpation (Ines-wound No Skin Appearance) -Ulcer Cleansing Soap and Water -Foul Odor after Cleansing No -Anesthetic Used 4% Lidocaine Solution #1 right lateral leg CLUSTER -Current Size (cm) - Length 0.1 -Current Size (cm) - Width 0.1 -Current Size (cm) - Depth 0.1 -Total Square Cm 0.01 -Photo Taken No -Epithelialization Large 67-100% -Tunneling No -Undermining/Tunneling No -Circular Undermining No -Exudate Amt Medium -Exudate Type Serosanguineous -Wound Margin Flat & Intact -Granulation Amt Large (67-100%) -Granulation Quality Pale,[place] -Necrosis Amt Small (1-33%) -Necrotic Tissue Type Adherent Slough -Texture (Ines-wound Skin Appearance) Assessed -Moisture (Ines-wound Skin Appearance) Assessed -Color (Ines-wound Skin Appearance) Assessed -Temperature (Ines-wound Skin No Abnormality Appearance) (Pt Warm) -Tenderness on Palpation (Ines-wound No Skin Appearance) -Ulcer Cleansing Soap and Water -Foul Odor after Cleansing No -Anesthetic Used 4% Lidocaine Solution Right Calf (cm) 43 Right Ankle (cm) 29 Left Calf (cm) 43.5 Left Ankle (cm) 28.5 WC - Nurse 2 - General Ulcer CM Notes Start: 05/28/24 13:12 Freq: Status: Active Protocol: Activity Type Activity Date Activity User E-sign Co-sign Detail Recorded Client Recorded Date Recorded By Document 05/28/24 13:39 MARIZA [id number] 05/28/24 13:44 MARIZA 05/28/24 13:39 Wound Center Nurse 2 LEFT LATERAL LEG CLUSTER -Time 13:42 -Correct Patient Yes -Correct Side, Site, Position Yes -Correct Procedure Yes -Procedure Performed Yes -Type of Procedure Debridement -Clinical Debridement Subcutaneous -Tissue Removed Subcutaneous -Post Debridement (cm) - Length 0.3 -Post Debridement (cm) - Width 0.3 -Post Debridement (cm) - Depth 0.1 -Total Square (Post) (cm) 0.09 -Area of Debridement (cm) - Length 0.3 -Area of Debridement (cm) - Width 0.3 -Total Square (Area) (cm) 0.09 -Tunneling No -Undermining/Tunneling No -Circular Undermining No -Wound/Ulcer Outcome Not Healed -Ulcer Cleansing Rinsed/ Irrigated with Saline -Foul Odor after Cleansing No -Bioengineered Tissue No -Bleeding Controlled with Pressure -Treatment Response Procedure Tolerated Well -Offloading No -Debridement - Subq, 1st 20sq cm Yes #1 right lateral leg CLUSTER -Time 13:43 -Correct Patient Yes -Correct Side, Site, Position Yes -Correct Procedure Yes -Procedure Performed Yes -Type of Procedure Debridement -Clinical Debridement Subcutaneous -Tissue Removed Subcutaneous -Post Debridement (cm) - Length 1.5 -Post Debridement (cm) - Width 1.3 -Post Debridement (cm) - Depth 0.1 -Total Square (Post) (cm) 1.95 -Area of Debridement (cm) - Length 1.5 -Area of Debridement (cm) - Width 1.3 -Total Square (Area) (cm) 1.95 -Tunneling No -Undermining/Tunneling No -Circular Undermining No -Wound/Ulcer Outcome Not Healed -Ulcer Cleansing Rinsed/ Irrigated with Saline -Foul Odor after Cleansing No -Bioengineered Tissue Yes -Type of Bioengineered Tissue Epifix -Expiration Date 11/24/28 -Product Lot Number [id number] -Percent Used 100 -Lot number of Saline Used [id number] -Bleeding Controlled with Pressure -Treatment Response Procedure Tolerated Well -Offloading No -Debridement - Subq, 1st 20sq cm No -Apply Skin Sub - 1st 25 sq cm - Legs 1 -Epifix (per sq cm) 4 Pain Scale: 0-10 Numeric Is Patient Pain Free? Yes Assessment/Plan Assessment/Plan (1) Non-pressure chronic ulcer of other part of right lower leg with fat layer exposed: CODE(S): L97.812 - Non-pressure chronic ulcer of other part of right lower leg with fat layer exposed PLAN: Patient was examined and evaluated. All findings were discussed with the patient. All questions were answered to the patient's satisfaction. Excisional debridement down to and including subcutaneous tissue with a number 5 mm dermal curette to the right leg full-thickness ulceration without incident. Predebridement measurement was 1.3 x 1.1 x 0.1 cm. Postdebridement measurement is 1.5 x 1.3 x 0.1 cm. EpiFix 2.0 x 2.0 cm graft was applied to the right full-thickness ulceration leg with 100% use. Sixth application. The graft site was free and clear of any infection. The wound/skin graft substitute was dressed with nonadherent bandage secured in place with Steri-Strips followed by bolster dressing as well as a CircAid wrap. Excisional debridement down to including subcutaneous tissue with a number 5 mm dermal curette to the left leg full-thickness ulceration with a center. Predebridement measurement was 0.2 x 0.2 x 0.1 cm. Post debridement measurement is 0.3 x 0.3 x 0.1 cm. The bilateral lower extremities were wrapped with the CircAid's. Patient will continue to pump at home 2-3 times per day. He will be placed on Augmentin 875 twice daily for 2 weeks. Follow-up at the wound care center with Dr. Quinones in 1 week. (2) Non-pressure chronic ulcer of other part of left lower leg with fat layer exposed: CODE(S): L97.822 - Non-pressure chronic ulcer of other part of left lower leg with fat layer exposed (3) Cellulitis of left leg: CODE(S): L03.116 - Cellulitis of left lower limb
[2024-06-04 13:16] VITALS: BP 151/94; PULSE 83; RESP 18; BMI 43.3
--- NOTE | 2024-06-04 13:36 | PN.PCM_ITS ---
History of Present Illness Date of Service: 05/28/24 Chief Complaint: Bilateral leg ulceration History of Wound: Bilateral leg ulcerations Progress of Wound: Bilateral full-thickness wound improving. Subjective Subjective Mr. Meneses is a 58-year-old male presented wound care center today follow-up evaluation of full-thickness wound amniotic skin graft substitute to the right leg. Patient is wearing his compression wraps and pumping whenever he can at home. He states that he tries the pump at least 2 times per day. He is having bit of a gout attack to the right lower extremity which has not been treated at this time. Denies trauma. Denies constitutional symptoms. No other pedal complaints at this time. Objective Data Objective Data Vital Signs: Vital Signs Temp Pulse Resp BP O2 Del Method 97 F L 83 18 151/94 H Room Air 05/28/24 13:25 06/04/24 13:16 06/04/24 13:16 06/04/24 13:16 06/04/24 13:16 Oxygen Delivery Method Room Air Weight: 129.274 kg Body Mass Index (BMI) 43.3 Physical Exam Narrative Vascular: DP and PT pulse are faintly palpable secondary to edema. CFT is brisk. No erythema nonpitting edema appreciated bilateral lower extremity. Roel nchable erythema appreciated to the Achilles tendon area to the right lower extremity. Neurological: Light touch intact. Patient does respond to painful stimuli. Dermatological: Full-thickness ulceration to the right leg measuring 3.0 x 2.3 x 0.1 cm. The wound base to the right leg is granular in nature. No drainage or malodor. Full-thickness wound to the left leg measuring 0.1 x 0.1 x 0.1 cm. Excisional debridement down to and including subcutaneous tissue with a number 5 mm dermal curette to the right leg full-thickness ulceration without incident. Predebridement measurement was 1.2 x 0.5 x 0.1 cm. Postdebridement measurement is 3.0 x 2.3 x 0.1 cm. EpiFix 4.0 x 4.5 cm graft was applied to the right full-thickness ulceration leg with 100% use. Seventh application. The graft site was free and clear of any infection. The wound/skin graft substitute was dressed with nonadherent bandage secured in place with Steri-Strips followed by bolster dressing as well as multilayer compression 3M wrap. Musculoskeletal: Mild palpatory tenderness appreciated to the right and left leg, improving. No pain with calf compression bilateral. Debridement Note Debridement Note Debridement Free Text: Excisional debridement down to and including subcutaneous tissue with a number 5 mm dermal curette to the right leg full-thickness ulceration without incident. Predebridement measurement was 1.2 x 0.5 x 0.1 cm. Postdebridement measurement is 3.0 x 2.3 x 0.1 cm. EpiFix 4.0 x 4.5 cm graft was applied to the right full-thickness ulceration leg with 100% use. Seventh application. The graft site was free and clear of any infection. The wound/skin graft substitute was dressed with nonadherent bandage secured in place with Steri-Strips followed by bolster dressing as well as multilayer compression 3M wrap. Post-Debridement Measurements and Additional Note: Post-Debridement Measurements/Treatment - Nurse 1 - General Ulcer Assessment Start: 05/28/24 13:12 Freq: Status: Active Protocol: TERENCE Activity Type Activity Date Activity User E-sign Co-sign Detail Recorded Client Recorded Date Recorded By Document 05/28/24 13:13 MT [id number] 05/28/24 13:23 MT Document 05/28/24 13:25 MT [id number] 05/28/24 13:26 MT Document 06/04/24 13:16 KW [id number] 06/04/24 13:21 KW 05/28/24 05/28/24 06/04/24 13:13 13:25 13:16 - Today's Visit Information Type of service Follow-up Visit Follow-up Visit Follow-up Visit (Physician/ELECTROPLATING LABORER (Physician/ELECTROPLATING LABORER (Physician/ELECTROPLATING LABORER ) ) ) Arrival Mode Ambulatory Ambulatory Ambulatory Accompanied by self Patient Identification Verified (Name & Yes Yes ) Safety Precautions Fall Prevention Height and Weight Body Mass Index (BMI) 43.3 43.3 43.3 BMI Classification Obese Obese Obese Vital Signs Temperature (97.8 F-99.1 F) 97 F L Temperature Source Temporal Temporal Temporal Pulse Rate (60-100) 88 83 Pulse Location Monitor Monitor Monitor Respiratory Rate (12-18) 18 18 18 Respiratory rate source Observation Observation Observation Oxygen Delivery Method Room Air Room Air Room Air Blood Pressure (90/60-120/80) 137/81 H 151/94 H Blood Pressure Mean (mm Hg) 99 113 Source Monitor Monitor Monitor Position Sitting Sitting Semi-Fowlers Blood Pressure Location Left Arm Left Arm Left Arm History Since Last Visit- (Skip if this is Patient's initial visit) Have you changed medications since your No last visit? Any new allergies or adverse reactions No Had a fall/change in ADL's that may No increase risk of falls Signs or symptoms of abuse and/or No neglect since last visit Have you been in the hospital since your No last visit? Has dressing in place as prescribed Yes Yes Yes Has compression in place as prescribed Yes Yes Yes Has offloadiing in place as prescribed Yes Yes N/A Experienced any changes in pain level or Yes Yes No management Left Footwear Regular Shoe Regular Shoe Regular Shoe Right Footwear Regular Shoe Regular Shoe Regular Shoe Pain Scale: 0-10 Numeric Is Patient Pain Free? Yes No No bl lower legs -Description Sharp,Burning WC - Nurse 1 - General Ulcer Measurement Start: 05/28/24 13:12 Freq: Status: Active Protocol: Activity Type Activity Date Activity User E-sign Co-sign Detail Recorded Client Recorded Date Recorded By Document 05/28/24 13:13 IA [id number] 05/28/24 13:23 MT Document 06/04/24 13:16 KW [id number] 06/04/24 13:21 KW 05/28/24 06/04/24 13:13 13:16 Wound Center Nurse 1 LEFT LATERAL LEG CLUSTER -Current Size (cm) - Length 0.1 0.1 -Current Size (cm) - Width 0.1 0.1 -Current Size (cm) - Depth 0.1 0 -Total Square Cm 0.01 0.01 -Date of Last Picture (Recall this 06/04/24 field) -Epithelialization Large 67-100% -Exudate Amt Medium None Present -Exudate Type Serosanguineous -Wound Margin Flat & Intact -Granulation Amt Large (67-100%) -Granulation Quality Pale,[place] -Necrosis Amt Small (1-33%) Large (67-100%) -Necrotic Tissue Type Adherent Slough Eschar -Texture (Ines-wound Skin Appearance) Assessed Assessed -Moisture (Ines-wound Skin Appearance) Assessed, Assessed,Dry/ Maceration Scaly -Color (Ines-wound Skin Appearance) Assessed, Assessed Hemosiderin Staining -Temperature (Ines-wound Skin No Abnormality No Abnormality Appearance) (Pt Warm) (Pt Warm) -Tenderness on Palpation (Ines-wound No No Skin Appearance) -Ulcer Cleansing Soap and Water -Foul Odor after Cleansing No No -Anesthetic Used 4% Lidocaine 5% Lidocaine Solution Gel #1 right lateral leg CLUSTER -Current Size (cm) - Length 0.1 0.1 -Current Size (cm) - Width 0.1 0.1 -Current Size (cm) - Depth 0.1 0 -Total Square Cm 0.01 0.01 -Date of Last Picture (Recall this 06/04/24 field) -Photo Taken No -Epithelialization Large 67-100% -Tunneling No -Undermining/Tunneling No -Circular Undermining No -Exudate Amt Medium -Exudate Type Serosanguineous -Wound Margin Flat & Intact -Granulation Amt Large (67-100%) -Granulation Quality Pale,[place] -Necrosis Amt Small (1-33%) Large (67-100%) -Necrotic Tissue Type Adherent Slough Eschar -Texture (Ines-wound Skin Appearance) Assessed Assessed -Moisture (Ines-wound Skin Appearance) Assessed Assessed,Dry/ Scaly -Color (Ines-wound Skin Appearance) Assessed Assessed -Temperature (Ines-wound Skin No Abnormality No Abnormality Appearance) (Pt Warm) (Pt Warm) -Tenderness on Palpation (Ines-wound No No Skin Appearance) -Ulcer Cleansing Soap and Water -Foul Odor after Cleansing No No -Anesthetic Used 4% Lidocaine 5% Lidocaine Solution Gel Right Calf (cm) 43 43.2 Right Ankle (cm) 29 27.5 Left Calf (cm) 43.5 44.6 Left Ankle (cm) 28.5 27.5 WC - Nurse 2 - General Ulcer CM Notes Start: 05/28/24 13:12 Freq: Status: Active Protocol: Activity Type Activity Date Activity User E-sign Co-sign Detail Recorded Client Recorded Date Recorded By Document 05/28/24 13:39 MARIZA [id number] 05/28/24 13:44 MARZIA 05/28/24 13:39 Wound Center Nurse 2 LEFT LATERAL LEG CLUSTER -Time 13:42 -Correct Patient Yes -Correct Side, Site, Position Yes -Correct Procedure Yes -Procedure Performed Yes -Type of Procedure Debridement -Clinical Debridement Subcutaneous -Tissue Removed Subcutaneous -Post Debridement (cm) - Length 0.3 -Post Debridement (cm) - Width 0.3 -Post Debridement (cm) - Depth 0.1 -Total Square (Post) (cm) 0.09 -Area of Debridement (cm) - Length 0.3 -Area of Debridement (cm) - Width 0.3 -Total Square (Area) (cm) 0.09 -Tunneling No -Undermining/Tunneling No -Circular Undermining No -Wound/Ulcer Outcome Not Healed -Ulcer Cleansing Rinsed/ Irrigated with Saline -Foul Odor after Cleansing No -Bioengineered Tissue No -Bleeding Controlled with Pressure -Treatment Response Procedure Tolerated Well -Offloading No -Debridement - Subq, 1st 20sq cm Yes #1 right lateral leg CLUSTER -Time 13:43 -Correct Patient Yes -Correct Side, Site, Position Yes -Correct Procedure Yes -Procedure Performed Yes -Type of Procedure Debridement -Clinical Debridement Subcutaneous -Tissue Removed Subcutaneous -Post Debridement (cm) - Length 1.5 -Post Debridement (cm) - Width 1.3 -Post Debridement (cm) - Depth 0.1 -Total Square (Post) (cm) 1.95 -Area of Debridement (cm) - Length 1.5 -Area of Debridement (cm) - Width 1.3 -Total Square (Area) (cm) 1.95 -Tunneling No -Undermining/Tunneling No -Circular Undermining No -Wound/Ulcer Outcome Not Healed -Ulcer Cleansing Rinsed/ Irrigated with Saline -Foul Odor after Cleansing No -Bioengineered Tissue Yes -Type of Bioengineered Tissue Epifix -Expiration Date 11/24/28 -Product Lot Number [id number] -Percent Used 100 -Lot number of Saline Used [id number] -Bleeding Controlled with Pressure -Treatment Response Procedure Tolerated Well -Offloading No -Debridement - Subq, 1st 20sq cm No -Apply Skin Sub - 1st 25 sq cm - Legs 1 -Epifix (per sq cm) 4 Pain Scale: 0-10 Numeric Is Patient Pain Free? Yes WC - Nurse 3 - General Ulcer D/C NN Start: 05/28/24 13:12 Freq: Status: Active Protocol: Activity Type Activity Date Activity User E-sign Co-sign Detail Recorded Client Recorded Date Recorded By Document 05/28/24 14:04 IA [id number] 05/28/24 14:06 IA 05/28/24 14:04 Wound Care Center Nurse 3 LEFT LATERAL LEG CLUSTER -Primary Dressing Applied Aquacel AG 4x4 -Primary Dressing Covered/Secured with Dry Gauze, Secured with Tape -Aquacel AG 4x4 1 Pain Scale: 0-10 Numeric Is Patient Pain Free? Yes WC - Visit Discharge Transportation Private Auto Medication Reconcilliation completed & No provided to patient/care provider Clinical Summary of Care Provided Yes Assessment/Plan Assessment/Plan (1) Gout of right foot: CODE(S): M10.9 - Gout, unspecified QUALIFIERS: Gout etiology: idiopathic Chronicity: acute Qualified Code(s): M10.071 - Idiopathic gout, right ankle and foot PLAN: The patient shows evidence of a acute gout attack to the right lower extremity Achilles tendon area. The patient was placed on a Medrol Dosepak and educated the patient to watch the foods that are causing him to have gout. I also educated the patient that there is concern for retrocalcaneal bursitis and that he has a tight posterior muscle group but once the pain is improved he will begin to stretch as discussed. (2) Chronic venous hypertension (idiopathic) with ulcer of right lower extremity: CODE(S): I87.311 - Chronic venous hypertension (idiopathic) with ulcer of right lower extremity; L97.919 - Non-pressure chronic ulcer of unspecified part of right lower leg with unspecified severity PLAN: Patient was examined and evaluated. All findings were discussed with the patient. All questions were answered to the patient's satisfaction. Excisional debridement down to and including subcutaneous tissue with a number 5 mm dermal curette to the right leg full-thickness ulceration without incident. Predebridement measurement was 1.2 x 0.5 x 0.1 cm. Postdebridement measurement is 3.0 x 2.3 x 0.1 cm. EpiFix 4.0 x 4.5 cm graft was applied to the right full-thickness ulceration leg with 100% use. Seventh application. The graft site was free and clear of any infection. The wound/skin graft substitute was dressed with nonadherent bandage secured in place with Steri-Strips followed by bolster dressing with CircAid wrap to the right lower extremity. Silver alginate was applied to the lateral partial-thickness wound to the left leg followed by dry sterile dressing and CircAid. Patient will continue to pump as discussed. Follow-up at the wound care center with Dr. Quinones in 1 week. (3) Non-pressure chronic ulcer of other part of left lower leg with fat layer exposed: CODE(S): L97.822 - Non-pressure chronic ulcer of other part of left lower leg with fat layer exposed
--- NOTE | 2024-06-05 09:55 | WC ---
PHOTO 06/04/24 LEFT LATERAL LE
--- NOTE | 2024-06-05 10:00 | WC ---
PHOTO 06/04/24 LEFT LATERAL LE
--- NOTE | 2024-06-05 10:06 | WC ---
PHOTO 06/04/24 RIGHT LATERAL LE
[2024-06-11 13:05] VITALS: BP 166/99; PULSE 74; RESP 18; TEMP 36.6; BMI 43.3
--- NOTE | 2024-06-14 17:54 | PN.PCM_ITS ---
History of Present Illness Date of Service: 06/14/24 Chief Complaint: Bilateral leg ulceration History of Wound: Bilateral leg ulcerations Progress of Wound: Bilateral full-thickness wound improving. Subjective Subjective Mr. Meneses is a 59-year-old male presenting to clinic today for evaluation of bilateral full-thickness wound. He is using his multilayer compression bandages as discussed. He is pumping at home. He states that his left wound to the leg is now healed. He is still being treated with amniotic skin graft substitute to the right leg. He is grateful for his care. Denies trauma. Denies constitutional symptoms. No other pedal complaints at this time. Objective Data Objective Data Vital Signs: Vital Signs Temp Pulse Resp BP O2 Del Method 97.8 F 74 18 166/99 H Room Air 06/11/24 13:05 06/11/24 13:05 06/11/24 13:05 06/11/24 13:05 06/11/24 13:05 Oxygen Delivery Method Room Air Weight: 129.274 kg Body Mass Index (BMI) 43.3 Physical Exam Narrative Vascular: DP and PT pulse are faintly palpable secondary to edema. CFT is brisk. No erythema nonpitting edema appreciated bilateral lower extremity. Blanchable erythema appreciated to the Achilles tendon area to the right lower extremity. Neurological: Light touch intact. Patient does respond to painful stimuli. Dermatological: Full-thickness ulceration to the right leg measuring 1.5 x 1.5 x 0.1 cm. The wound base to the right leg is granular in nature. No drainage or malodor. Full-thickness wound to the left leg is now healed. Excisional debridement down to and including subcutaneous tissue with a number 5 mm dermal curette to the right leg full-thickness ulceration without incident. Predebridement measurement was 1.0 x 1.5 x 0.1 cm. Postdebridement measurement is 1.5 x 1.5 x 0.1 cm. EpiFix graft was applied to the right full-thickness ulceration leg with 100% use. 8th application. The graft site was free and clear of any infection. The wound/skin graft substitute was dressed with nonadherent bandage secured in place with Steri-Strips followed by bolster dressing as well as multilayer compression 3M wrap. Musculoskeletal: Mild palpatory tenderness appreciated to the right and left leg, improving. No pain with calf compression bilateral. Debridement Note Debridement Note Post-Debridement Measurements and Additional Note: Post-Debridement Measurements/Treatment - Nurse 1 - General Ulcer Assessment Start: 05/28/24 13:12 Freq: Status: Active Protocol: TERENCE Activity Type Activity Date Activity User E-sign Co-sign Detail Recorded Client Recorded Date Recorded By Document 05/28/24 13:13 MT [id number] 05/28/24 13:23 MT Document 05/28/24 13:25 MT [id number] 05/28/24 13:26 MT Document 06/04/24 13:16 KW [id number] 06/04/24 13:21 KW Document 06/11/24 13:05 MT [id number] 06/11/24 13:15 MT 05/28/24 05/28/24 06/04/24 13:13 13:25 13:16 - Today's Visit Information Type of service Follow-up Visit Follow-up Visit Follow-up Visit (Physician/MANAGER WORKERS COMPENSATION (Physician/MANAGER WORKERS COMPENSATION (Physician/MANAGER WORKERS COMPENSATION ) ) ) Arrival Mode Ambulatory Ambulatory Ambulatory Accompanied by self Patient Identification Verified (Name & Yes Yes ) Safety Precautions Fall Prevention Height and Weight Body Mass Index (BMI) 43.3 43.3 43.3 BMI Classification Obese Obese Obese Vital Signs Temperature (97.8 F-99.1 F) 97 F L Temperature Source Temporal Temporal Temporal Pulse Rate (60-100) 88 83 Pulse Location Monitor Monitor Monitor Respiratory Rate (12-18) 18 18 18 Respiratory rate source Observation Observation Observation Oxygen Delivery Method Room Air Room Air Room Air Blood Pressure (90/60-120/80) 137/81 H 151/94 H Blood Pressure Mean (mm Hg) 99 113 Source Monitor Monitor Monitor Position Sitting Sitting Semi-Fowlers Blood Pressure Location Left Arm Left Arm Left Arm History Since Last Visit- (Skip if this is Patient's initial visit) Have you changed medications since your No last visit? Any new allergies or adverse reactions No Had a fall/change in ADL's that may No increase risk of falls Signs or symptoms of abuse and/or No neglect since last visit Have you been in the hospital since your No last visit? Has dressing in place as prescribed Yes Yes Yes Has compression in place as prescribed Yes Yes Yes Has offloadiing in place as prescribed Yes Yes N/A Experienced any changes in pain level or Yes Yes No management Left Footwear Regular Shoe Regular Shoe Regular Shoe Right Footwear Regular Shoe Regular Shoe Regular Shoe Pain Scale: 0-10 Numeric Is Patient Pain Free? Yes No No bl lower legs -Description Sharp,Burning 06/11/24 13:05 WC - Today's Visit Information Type of service Follow-up Visit (Physician/MANAGER WORKERS COMPENSATION ) Arrival Mode Ambulatory Accompanied by self Patient Identification Verified (Name & Yes ) Safety Precautions Fall Prevention Height and Weight Body Mass Index (BMI) 43.3 BMI Classification Obese Vital Signs Temperature (97.8 F-99.1 F) 97.8 F Temperature Source Temporal Pulse Rate (60-100) 74 Pulse Location Monitor Respiratory Rate (12-18) 18 Respiratory rate source Observation Oxygen Delivery Method Room Air Blood Pressure (90/60-120/80) 166/99 H Blood Pressure Mean (mm Hg) 121 Source Monitor Position Sitting Blood Pressure Location Right Arm History Since Last Visit- (Skip if this is Patient's initial visit) Have you changed medications since your last visit? Any new allergies or adverse reactions Had a fall/change in ADL's that may increase risk of falls Signs or symptoms of abuse and/or neglect since last visit Have you been in the hospital since your last visit? Has dressing in place as prescribed Yes Has compression in place as prescribed Yes Has offloadiing in place as prescribed Yes Experienced any changes in pain level or Yes management Left Footwear Regular Shoe Right Footwear Regular Shoe Pain Scale: 0-10 Numeric Is Patient Pain Free? Yes bl lower legs -Description - Nurse 1 - General Ulcer Measurement Start: 05/28/24 13:12 Freq: Status: Active Protocol: Activity Type Activity Date Activity User E-sign Co-sign Detail Recorded Client Recorded Date Recorded By Document 05/28/24 13:13 MT [id number] 05/28/24 13:23 MT Document 06/04/24 13:16 KW [id number] 06/04/24 13:21 KW Document 06/11/24 13:05 MT [id number] 06/11/24 13:15 MT 05/28/24 06/04/24 06/11/24 13:13 13:16 13:05 Wound Center Nurse 1 LEFT LATERAL LEG CLUSTER -Current Size (cm) - Length 0.1 0.1 0.1 -Current Size (cm) - Width 0.1 0.1 0.1 -Current Size (cm) - Depth 0.1 0 0.1 -Total Square Cm 0.01 0.01 0.01 -Date of Last Picture (Recall this 06/04/24 field) -Photo Taken No -Epithelialization Large 67-100% Large 67-100% -Tunneling No -Undermining/Tunneling No -Circular Undermining No -Exudate Amt Medium None Present Small -Exudate Type Serosanguineous Serosanguineous -Wound Margin Flat & Intact Flat & Intact -Granulation Amt Large (67-100%) Large (67-100%) -Granulation Quality Pale,[place] Pale,[place] -Slough/Fibrin No -Necrosis Amt Small (1-33%) Large (67-100%) -Necrotic Tissue Type Adherent Slough Eschar -Texture (Ines-wound Skin Appearance) Assessed Assessed Assessed -Moisture (Ines-wound Skin Appearance) Assessed, Assessed,Dry/ Assessed Maceration Scaly -Color (Ines-wound Skin Appearance) Assessed, Assessed Assessed Hemosiderin Staining -Temperature (Ines-wound Skin No Abnormality No Abnormality No Abnormality Appearance) (Pt Warm) (Pt Warm) (Pt Warm) -Tenderness on Palpation (Ines-wound No No No Skin Appearance) -Ulcer Cleansing Soap and Water Soap and Water -Foul Odor after Cleansing No No No -Anesthetic Used 4% Lidocaine 5% Lidocaine 4% Lidocaine Solution Gel Solution #1 right lateral leg CLUSTER -Current Size (cm) - Length 0.1 0.1 0.1 -Current Size (cm) - Width 0.1 0.1 0.1 -Current Size (cm) - Depth 0.1 0 0.1 -Total Square Cm 0.01 0.01 0.01 -Date of Last Picture (Recall this 06/04/24 field) -Photo Taken No -Epithelialization Large 67-100% Large 67-100% -Tunneling No No -Undermining/Tunneling No No -Circular Undermining No No -Exudate Amt Medium Medium -Exudate Type Serosanguineous Serosanguineous -Wound Margin Flat & Intact Flat & Intact -Granulation Amt Large (67-100%) Large (67-100%) -Granulation Quality Pale,[place] Pale,[place]water -Necrosis Amt Small (1-33%) Large (67-100%) Small (1-33%) -Necrotic Tissue Type Adherent Slough Eschar -Texture (Ines-wound Skin Appearance) Assessed Assessed Assessed, Induration, Localized Edema -Moisture (Ines-wound Skin Appearance) Assessed Assessed,Dry/ Assessed, Scaly Weeping -Color (Ines-wound Skin Appearance) Assessed Assessed Assessed, Hemosiderin Staining,Rubor -Temperature (Ines-wound Skin No Abnormality No Abnormality Hot Appearance) (Pt Warm) (Pt Warm) -Tenderness on Palpation (Ines-wound No No No Skin Appearance) -Ulcer Cleansing Soap and Water Soap and Water -Foul Odor after Cleansing No No No -Anesthetic Used 4% Lidocaine 5% Lidocaine 4% Lidocaine Solution Gel Solution Right Calf (cm) 43 43.2 44 Right Ankle (cm) 29 27.5 28 Left Calf (cm) 43.5 44.6 43 Left Ankle (cm) 28.5 27.5 29 WC - Nurse 2 - General Ulcer CM Notes Start: 05/28/24 13:12 Freq: Status: Active Protocol: Activity Type Activity Date Activity User E-sign Co-sign Detail Recorded Client Recorded Date Recorded By Document 05/28/24 13:39 [id number] 05/28/24 13:44 Document 06/04/24 13:28 [id number] 06/04/24 13:37 Document 06/11/24 13:53 [id number] 06/11/24 13:57 05/28/24 06/04/24 06/11/24 13:39 13:28 13:53 Wound Center Nurse 2 LEFT LATERAL LEG CLUSTER -Time 13:42 -Correct Patient Yes No No -Correct Side, Site, Position Yes No No -Correct Procedure Yes No No -Procedure Performed Yes No No -Type of Procedure Debridement -Clinical Debridement Subcutaneous -Tissue Removed Subcutaneous -Post Debridement (cm) - Length 0.3 0.1 0 -Post Debridement (cm) - Width 0.3 0.1 0 -Post Debridement (cm) - Depth 0.1 0.1 0 -Total Square (Post) (cm) 0.09 0.01 0 -Area of Debridement (cm) - Length 0.3 0.1 0 -Area of Debridement (cm) - Width 0.3 0.1 0 -Total Square (Area) (cm) 0.09 0.01 0 -Tunneling No -Undermining/Tunneling No -Circular Undermining No -Wound/Ulcer Outcome Not Healed Not Healed Healed- Epithelialized -Ulcer Cleansing Rinsed/ Irrigated with Saline -Foul Odor after Cleansing No -Bioengineered Tissue No -Bleeding Controlled with Pressure -Treatment Response Procedure Tolerated Well -Offloading No -Debridement - Subq, 1st 20sq cm Yes #1 right lateral leg CLUSTER -Time 13:43 13:31 13:56 -Correct Patient Yes Yes Yes -Correct Side, Site, Position Yes Yes Yes -Correct Procedure Yes Yes Yes -Procedure Performed Yes Yes Yes -Type of Procedure Debridement Debridement Debridement -Clinical Debridement Subcutaneous Subcutaneous Subcutaneous -Tissue Removed Subcutaneous Subcutaneous Subcutaneous -Post Debridement (cm) - Length 1.5 3.0 1.5 -Post Debridement (cm) - Width 1.3 2.3 1.5 -Post Debridement (cm) - Depth 0.1 0.1 0.1 -Total Square (Post) (cm) 1.95 6.90 2.25 -Area of Debridement (cm) - Length 1.5 3.0 1.5 -Area of Debridement (cm) - Width 1.3 2.3 1.5 -Total Square (Area) (cm) 1.95 6.90 2.25 -Tunneling No No No -Undermining/Tunneling No No No -Circular Undermining No No No -Wound/Ulcer Outcome Not Healed Not Healed Not Healed -Ulcer Cleansing Rinsed/ Rinsed/ Rinsed/ Irrigated with Irrigated with Irrigated with Saline Saline Saline -Foul Odor after Cleansing No No No -Bioengineered Tissue Yes Yes Yes -Type of Bioengineered Tissue Epifix Epifix Mesh Epifix 18mm Disc -Expiration Date 11/24/28 11/24/28 12/24/28 -Product Lot Number [id number] -Percent Used 100 100 100 -Lot number of Saline Used [id number] -Bleeding Controlled with Pressure Pressure Pressure -Treatment Response Procedure Procedure Procedure Tolerated Well Tolerated Well Tolerated Well -Offloading No No No -Debridement - Subq, 1st 20sq cm No No No -Apply Skin Sub - 1st 25 sq cm - Legs 1 1 1 -Epifix (per sq cm) 4 -Epifix 18mm Disc 3 -Epifix Mesh (per sq cm) 11 Pain Scale: 0-10 Numeric Is Patient Pain Free? Yes Yes Yes WC - Nurse 3 - General Ulcer D/C NN Start: 05/28/24 13:12 Freq: Status: Active Protocol: Activity Type Activity Date Activity User E-sign Co-sign Detail Recorded Client Recorded Date Recorded By Document 05/28/24 14:04 AL [id number] 05/28/24 14:06 AL Document 06/04/24 13:52 KW [id number] 06/04/24 13:53 KW Document 06/11/24 14:00 [facility] [id number] 06/11/24 14:02 [facility] 05/28/24 06/04/24 06/11/24 14:04 13:52 14:00 Wound Care Center Nurse 3 LEFT LATERAL LEG CLUSTER -Primary Dressing Applied Aquacel AG 4x4 Aquacel AG 4x4 -Primary Dressing Covered/Secured with Dry Gauze, Dry Gauze & Secured with Roll Gauze, Tape Secured with Tape -Aquacel AG 4x4 1 1 #1 right lateral leg CLUSTER -Primary Dressing Applied Optilok 5x5 1/2 -Other Dressing epifix -Primary Dressing Covered/Secured with Dry Gauze & Dry Gauze & Roll Gauze, Roll Gauze, Secured with Secured with Tape Tape -Other Covering per mt rn -Optilok 5x5 1/2 1 -Wound Comment(s) epimesh applied BLE -Multi-Layered Wrap Application Multi-Layer Comp - Bilat ($ ) -Other pt own ordered applied per mi circaids rn -Multi-Layer Compression Bilat (Qty 1 applied) Treatment Response Procedure Tolerated Well Pain Scale: 0-10 Numeric Is Patient Pain Free? Yes Yes Yes - Visit Discharge Discharge Condition Stable Stable Ambulatory Status Ambulatory Ambulatory Transportation Private Auto Private Auto Private Auto Medication Reconcilliation completed & No No provided to patient/care provider Clinical Summary of Care Provided Yes Yes Assessment/Plan Assessment/Plan (1) Chronic venous hypertension (idiopathic) with ulcer of right lower extremity: CODE(S): I87.311 - Chronic venous hypertension (idiopathic) with ulcer of right lower extremity; L97.919 - Non-pressure chronic ulcer of unspecified part of right lower leg with unspecified severity PLAN: Patient was examined and evaluated. All findings were discussed with the patient. All questions were answered to the patient's satisfaction. Excisional debridement down to and including subcutaneous tissue with a number 5 mm dermal curette to the right leg full-thickness ulceration without incident. Predebridement measurement was 1.0 x 1.5 x 0.1 cm. Postdebridement measurement is 1.5 x 1.5 x 0.1 cm. EpiFix graft was applied to the right full-thickness ulceration leg with 100% use. 8th application. The graft site was free and clear of any infection. The wound/skin graft substitute was dressed with nonadherent bandage secured in place with Steri-Strips followed by bolster dressing as well as multilayer compression 3M wrap. Patient will continue to pump as discussed. Follow-up at the wound care center with Dr. Quinones in 1 week. (2) Non-pressure chronic ulcer of other part of left lower leg with fat layer exposed: CODE(S): L97.822 - Non-pressure chronic ulcer of other part of left lower leg with fat layer exposed
[2024-06-18 13:13] VITALS: BP 137/96; PULSE 109; RESP 18; TEMP 36.2; BMI 43.3
--- NOTE | 2024-06-21 20:47 | PCM.WC.PN ---
History of Present Illness Date of Service: 06/21/24 Chief Complaint: Bilateral leg ulceration History of Wound: Bilateral leg ulcerations Progress of Wound: Bilateral full-thickness wound improving. Subjective Subjective Mr. Meneses is a 59-year-old male presenting to the wound care center today for follow-up evaluation of full-thickness wounds to the bilateral lower extremity. Patient has been compliant with his multilayer compression bandage to the bilateral lower extremity, and was left in clean dry and intact. He has no pain to the bilateral lower extremity. He has been very grateful for his care. He denies any trauma. Denies constitutional symptoms. No other pedal complaints at this time. Objective Data Objective Data Vital Signs: Vital Signs Temp Pulse Resp BP O2 Del Method 97.2 F L 109 H 18 137/96 H Room Air 06/18/24 13:13 06/18/24 13:13 06/18/24 13:13 06/18/24 13:13 06/11/24 13:05 Oxygen Delivery Method Room Air Weight: 129.274 kg Body Mass Index (BMI) 43.3 Physical Exam Narrative Vascular: DP and PT pulse are faintly palpable secondary to edema. CFT is brisk. No erythema nonpitting edema appreciated bilateral lower extremity. Blanchable erythema appreciated to the Achilles tendon area to the right lower extremity. Neurological: Light touch intact. Patient does respond to painful stimuli. Dermatological: Full-thickness ulceration to the right leg measuring 0.5 x 0.8 x 0.1 cm. The wound base to the right leg is granular in nature. No drainage or malodor. Excisional debridement down to and including subcutaneous tissue with a number 5 mm dermal curette to the right leg full-thickness ulceration without incident. Predebridement measurement was Sanguinous crust. Postdebridement measurement is 0.5 x 0.8 x 0.1 cm. EpiFix graft was applied to the right full-thickness ulceration leg with 100% use. 9th application. The graft site was free and clear of any infection. The wound/skin graft substitute was dressed with nonadherent bandage secured in place with Steri-Strips followed by bolster dressing as well as multilayer compression 3M wrap. Musculoskeletal: Mild palpatory tenderness appreciated to the right and left leg, improving. No pain with calf compression bilateral. Debridement Note Debridement Note Post-Debridement Measurements and Additional Note: Post-Debridement Measurements/Treatment WC - Nurse 1 - General Ulcer Assessment Start: 05/28/24 13:12 Freq: Status: Active Protocol: TERENCE Activity Type Activity Date Activity User E-sign Co-sign Detail Recorded Client Recorded Date Recorded By Document 05/28/24 13:13 MT [id number] 05/28/24 13:23 MT Document 05/28/24 13:25 MT [id number] 05/28/24 13:26 MT Document 06/04/24 13:16 KW [id number] 06/04/24 13:21 KW Document 06/11/24 13:05 MT [id number] 06/11/24 13:15 MT Document 06/18/24 13:13 DL [id number] 06/18/24 13:24 DL 05/28/24 05/28/24 06/04/24 13:13 13:25 13:16 WC - Today's Visit Information Type of service Follow-up Visit Follow-up Visit Follow-up Visit (Physician/GERIATRIC NURSE (Physician/GERIATRIC NURSE (Physician/GERIATRIC NURSE ) ) ) Arrival Mode Ambulatory Ambulatory Ambulatory Transfer Assistance Accompanied by self Patient Identification Verified (Name & Yes Yes ) Patient Requires Transmission-Based Precautions Safety Precautions Fall Prevention Height and Weight Body Mass Index (BMI) 43.3 43.3 43.3 BMI Classification Obese Obese Obese Vital Signs Temperature (97.8 F-99.1 F) 97 F L Temperature Source Temporal Temporal Temporal Pulse Rate (60-100) 88 83 Pulse Location Monitor Monitor Monitor Respiratory Rate (12-18) 18 18 18 Respiratory rate source Observation Observation Observation Oxygen Delivery Method Room Air Room Air Room Air Blood Pressure (90/60-120/80) 137/81 H 151/94 H Blood Pressure Mean (mm Hg) 99 113 Source Monitor Monitor Monitor Position Sitting Sitting Semi-Fowlers Blood Pressure Location Left Arm Left Arm Left Arm History Since Last Visit- (Skip if this is Patient's initial visit) Have you changed medications since your No last visit? Any new allergies or adverse reactions No Had a fall/change in ADL's that may No increase risk of falls Signs or symptoms of abuse and/or No neglect since last visit Have you been in the hospital since your No last visit? Has dressing in place as prescribed Yes Yes Yes Has compression in place as prescribed Yes Yes Yes Has offloadiing in place as prescribed Yes Yes N/A Experienced any changes in pain level or Yes Yes No management Left Footwear Regular Shoe Regular Shoe Regular Shoe Right Footwear Regular Shoe Regular Shoe Regular Shoe Pain Scale: 0-10 Numeric Is Patient Pain Free? Yes No No bl lower legs -Description Sharp,Burning 06/11/24 06/18/24 13:05 13:13 - Today's Visit Information Type of service Follow-up Visit Follow-up Visit (Physician/GERIATRIC NURSE (Physician/GERIATRIC NURSE ) ) Arrival Mode Ambulatory Ambulatory Transfer Assistance None Accompanied by self Patient Identification Verified (Name & Yes Yes ) Patient Requires Transmission-Based No Precautions Safety Precautions Fall Prevention Height and Weight Body Mass Index (BMI) 43.3 43.3 BMI Classification Obese Obese Vital Signs Temperature (97.8 F-99.1 F) 97.8 F 97.2 F L Temperature Source Temporal Temporal Pulse Rate (60-100) 74 109 H Pulse Location Monitor Monitor Respiratory Rate (12-18) 18 18 Respiratory rate source Observation Observation Oxygen Delivery Method Room Air Blood Pressure (90/60-120/80) 166/99 H 137/96 H Blood Pressure Mean (mm Hg) 121 109 Source Monitor Monitor Position Sitting Blood Pressure Location Right Arm History Since Last Visit- (Skip if this is Patient's initial visit) Have you changed medications since your No last visit? Any new allergies or adverse reactions No Had a fall/change in ADL's that may No increase risk of falls Signs or symptoms of abuse and/or No neglect since last visit Have you been in the hospital since your No last visit? Has dressing in place as prescribed Yes Yes Has compression in place as prescribed Yes Yes Has offloadiing in place as prescribed Yes Yes Experienced any changes in pain level or Yes No management Left Footwear Regular Shoe Right Footwear Regular Shoe Pain Scale: 0-10 Numeric Is Patient Pain Free? Yes Yes bl lower legs -Description - Nurse 1 - General Ulcer Measurement Start: 05/28/24 13:12 Freq: Status: Active Protocol: Activity Type Activity Date Activity User E-sign Co-sign Detail Recorded Client Recorded Date Recorded By Document 05/28/24 13:13 MT [id number] 05/28/24 13:23 MT Document 06/04/24 13:16 KW [id number] 06/04/24 13:21 KW Document 06/11/24 13:05 MT [id number] 06/11/24 13:15 MT Document 06/18/24 13:13 DL [id number] 06/18/24 13:24 DL 05/28/24 06/04/24 06/11/24 13:13 13:16 13:05 Wound Center Nurse 1 LEFT LATERAL LEG CLUSTER -Current Size (cm) - Length 0.1 0.1 0.1 -Current Size (cm) - Width 0.1 0.1 0.1 -Current Size (cm) - Depth 0.1 0 0.1 -Total Square Cm 0.01 0.01 0.01 -Date of Last Picture (Recall this 06/04/24 field) -Photo Taken No -Epithelialization Large 67-100% Large 67-100% -Tunneling No -Undermining/Tunneling No -Circular Undermining No -Exudate Amt Medium None Present Small -Exudate Type Serosanguineous Serosanguineous -Wound Margin Flat & Intact Flat & Intact -Granulation Amt Large (67-100%) Large (67-100%) -Granulation Quality Pale,[place] Pale,Arrow [place] -Slough/Fibrin No -Necrosis Amt Small (1-33%) Large (67-100%) -Necrotic Tissue Type Adherent Slough Eschar -Texture (Ines-wound Skin Appearance) Assessed Assessed Assessed -Moisture (Ines-wound Skin Appearance) Assessed, Assessed,Dry/ Assessed Maceration Scaly -Color (Ines-wound Skin Appearance) Assessed, Assessed Assessed Hemosiderin Staining -Temperature (Ines-wound Skin No Abnormality No Abnormality No Abnormality Appearance) (Pt Warm) (Pt Warm) (Pt Warm) -Tenderness on Palpation (Ines-wound No No No Skin Appearance) -Ulcer Cleansing Soap and Water Soap and Water -Foul Odor after Cleansing No No No -Anesthetic Used 4% Lidocaine 5% Lidocaine 4% Lidocaine Solution Gel Solution #1 right lateral leg CLUSTER -Current Size (cm) - Length 0.1 0.1 0.1 -Current Size (cm) - Width 0.1 0.1 0.1 -Current Size (cm) - Depth 0.1 0 0.1 -Total Square Cm 0.01 0.01 0.01 -Date of Last Picture (Recall this 06/04/24 field) -Photo Taken No -Epithelialization Large 67-100% Large 67-100% -Tunneling No No -Undermining/Tunneling No No -Circular Undermining No No -Exudate Amt Medium Medium -Exudate Type Serosanguineous Serosanguineous -Wound Margin Flat & Intact Flat & Intact -Granulation Amt Large (67-100%) Large (67-100%) -Granulation Quality Pale,Ar[place] Pale,Arrow Point -Necrosis Amt Small (1-33%) Large (67-100%) Small (1-33%) -Necrotic Tissue Type Adherent Slough Eschar -Structure Exposed -Texture (Ines-wound Skin Appearance) Assessed Assessed Assessed, Induration, Localized Edema -Moisture (Ines-wound Skin Appearance) Assessed Assessed,Dry/ Assessed, Scaly Weeping -Color (Ines-wound Skin Appearance) Assessed Assessed Assessed, Hemosiderin Staining,Rubor -Temperature (Ines-wound Skin No Abnormality No Abnormality Hot Appearance) (Pt Warm) (Pt Warm) -Tenderness on Palpation (Ines-wound No No No Skin Appearance) -Ulcer Cleansing Soap and Water Soap and Water -Foul Odor after Cleansing No No No -Anesthetic Used 4% Lidocaine 5% Lidocaine 4% Lidocaine Solution Gel Solution Right Calf (cm) 43 43.2 44 Right Ankle (cm) 29 27.5 28 Left Calf (cm) 43.5 44.6 43 Left Ankle (cm) 28.5 27.5 29 06/18/24 13:13 Wound Center Nurse 1 LEFT LATERAL LEG CLUSTER -Current Size (cm) - Length -Current Size (cm) - Width -Current Size (cm) - Depth -Total Square Cm -Date of Last Picture (Recall this field) -Photo Taken -Epithelialization -Tunneling -Undermining/Tunneling -Circular Undermining -Exudate Amt -Exudate Type -Wound Margin -Granulation Amt -Granulation Quality -Slough/Fibrin -Necrosis Amt -Necrotic Tissue Type -Texture (Ines-wound Skin Appearance) -Moisture (Ines-wound Skin Appearance) -Color (Ines-wound Skin Appearance) -Temperature (Ines-wound Skin Appearance) -Tenderness on Palpation (Ines-wound Skin Appearance) -Ulcer Cleansing -Foul Odor after Cleansing -Anesthetic Used #1 right lateral leg CLUSTER -Current Size (cm) - Length 0.6 -Current Size (cm) - Width 0.6 -Current Size (cm) - Depth 0.1 -Total Square Cm 0.36 -Date of Last Picture (Recall this field) -Photo Taken -Epithelialization -Tunneling -Undermining/Tunneling -Circular Undermining -Exudate Amt Small -Exudate Type Serosanguineous -Wound Margin Distinct, Outline Attached -Granulation Amt None Present (0 %) -Granulation Quality -Necrosis Amt Small (1-33%) -Necrotic Tissue Type Adherent Slough -Structure Exposed N/A -Texture (Ines-wound Skin Appearance) Scarring -Moisture (Ines-wound Skin Appearance) No Abnormality -Color (Ines-wound Skin Appearance) Hemosiderin Staining -Temperature (Ines-wound Skin No Abnormality Appearance) (Pt Warm) -Tenderness on Palpation (Ines-wound Skin Appearance) -Ulcer Cleansing Soap and Water -Foul Odor after Cleansing No -Anesthetic Used 5% Lidocaine Gel Right Calf (cm) 42.3 Right Ankle (cm) 26.5 Left Calf (cm) 43.5 Left Ankle (cm) 26.5 WC - Nurse 2 - General Ulcer CM Notes Start: 05/28/24 13:12 Freq: Status: Active Protocol: Activity Type Activity Date Activity User E-sign Co-sign Detail Recorded Client Recorded Date Recorded By Document 05/28/24 13:39 [id number] 05/28/24 13:44 Document 06/04/24 13:28 [id number] 06/04/24 13:37 Document 06/11/24 13:53 [id number] 06/11/24 13:57 Document 06/18/24 13:43 [id number] 06/18/24 13:45 05/28/24 06/04/24 06/11/24 13:39 13:28 13:53 Wound Center Nurse 2 LEFT LATERAL LEG CLUSTER -Time 13:42 -Correct Patient Yes No No -Correct Side, Site, Position Yes No No -Correct Procedure Yes No No -Procedure Performed Yes No No -Type of Procedure Debridement -Clinical Debridement Subcutaneous -Tissue Removed Subcutaneous -Post Debridement (cm) - Length 0.3 0.1 0 -Post Debridement (cm) - Width 0.3 0.1 0 -Post Debridement (cm) - Depth 0.1 0.1 0 -Total Square (Post) (cm) 0.09 0.01 0 -Area of Debridement (cm) - Length 0.3 0.1 0 -Area of Debridement (cm) - Width 0.3 0.1 0 -Total Square (Area) (cm) 0.09 0.01 0 -Tunneling No -Undermining/Tunneling No -Circular Undermining No -Wound/Ulcer Outcome Not Healed Not Healed Healed- Epithelialized -Ulcer Cleansing Rinsed/ Irrigated with Saline -Foul Odor after Cleansing No -Bioengineered Tissue No -Bleeding Controlled with Pressure -Treatment Response Procedure Tolerated Well -Offloading No -Debridement - Subq, 1st 20sq cm Yes #1 right lateral leg CLUSTER -Time 13:43 13:31 13:56 -Correct Patient Yes Yes Yes -Correct Side, Site, Position Yes Yes Yes -Correct Procedure Yes Yes Yes -Procedure Performed Yes Yes Yes -Type of Procedure Debridement Debridement Debridement -Clinical Debridement Subcutaneous Subcutaneous Subcutaneous -Tissue Removed Subcutaneous Subcutaneous Subcutaneous -Post Debridement (cm) - Length 1.5 3.0 1.5 -Post Debridement (cm) - Width 1.3 2.3 1.5 -Post Debridement (cm) - Depth 0.1 0.1 0.1 -Total Square (Post) (cm) 1.95 6.90 2.25 -Area of Debridement (cm) - Length 1.5 3.0 1.5 -Area of Debridement (cm) - Width 1.3 2.3 1.5 -Total Square (Area) (cm) 1.95 6.90 2.25 -Tunneling No No No -Undermining/Tunneling No No No -Circular Undermining No No No -Wound/Ulcer Outcome Not Healed Not Healed Not Healed -Ulcer Cleansing Rinsed/ Rinsed/ Rinsed/ Irrigated with Irrigated with Irrigated with Saline Saline Saline -Foul Odor after Cleansing No No No -Bioengineered Tissue Yes Yes Yes -Type of Bioengineered Tissue Epifix Epifix Mesh Epifix 18mm Disc -Expiration Date 11/24/28 11/24/28 12/24/28 -Product Lot Number [id number] -Percent Used 100 100 100 -Lot number of Saline Used [id number] -Bleeding Controlled with Pressure Pressure Pressure -Treatment Response Procedure Procedure Procedure Tolerated Well Tolerated Well Tolerated Well -Offloading No No No -Debridement - Subq, 1st 20sq cm No No No -Apply Skin Sub - 1st 25 sq cm - Legs 1 1 1 -Epifix (per sq cm) 4 -Epifix 18mm Disc 3 -Epifix Mesh (per sq cm) 11 Pain Scale: 0-10 Numeric Is Patient Pain Free? Yes Yes Yes 06/18/24 13:43 Wound Center Nurse 2 LEFT LATERAL LEG CLUSTER -Time -Correct Patient -Correct Side, Site, Position -Correct Procedure -Procedure Performed -Type of Procedure -Clinical Debridement -Tissue Removed -Post Debridement (cm) - Length -Post Debridement (cm) - Width -Post Debridement (cm) - Depth -Total Square (Post) (cm) -Area of Debridement (cm) - Length -Area of Debridement (cm) - Width -Total Square (Area) (cm) -Tunneling -Undermining/Tunneling -Circular Undermining -Wound/Ulcer Outcome -Ulcer Cleansing -Foul Odor after Cleansing -Bioengineered Tissue -Bleeding Controlled with -Treatment Response -Offloading -Debridement - Subq, 1st 20sq cm #1 right lateral leg CLUSTER -Time 13:44 -Correct Patient Yes -Correct Side, Site, Position Yes -Correct Procedure Yes -Procedure Performed Yes -Type of Procedure Debridement -Clinical Debridement -Tissue Removed Epidermis, Subcutaneous -Post Debridement (cm) - Length 0.5 -Post Debridement (cm) - Width 0.8 -Post Debridement (cm) - Depth 0.1 -Total Square (Post) (cm) 0.40 -Area of Debridement (cm) - Length 0.5 -Area of Debridement (cm) - Width 0.8 -Total Square (Area) (cm) 0.40 -Tunneling No -Undermining/Tunneling No -Circular Undermining No -Wound/Ulcer Outcome Not Healed -Ulcer Cleansing Rinsed/ Irrigated with Saline -Foul Odor after Cleansing No -Bioengineered Tissue Yes -Type of Bioengineered Tissue Epifix 18mm Disc -Expiration Date 12/24/28 -Product Lot Number [id number] -Percent Used 100 -Lot number of Saline Used [id number] -Bleeding Controlled with Pressure -Treatment Response Procedure Tolerated Well -Offloading No -Debridement - Subq, 1st 20sq cm No -Apply Skin Sub - 1st 25 sq cm - Legs 1 -Epifix (per sq cm) -Epifix 18mm Disc 3 -Epifix Mesh (per sq cm) Pain Scale: 0-10 Numeric Is Patient Pain Free? Yes WC - Nurse 3 - General Ulcer D/C NN Start: 05/28/24 13:12 Freq: Status: Active Protocol: Activity Type Activity Date Activity User E-sign Co-sign Detail Recorded Client Recorded Date Recorded By Document 05/28/24 14:04 NV [id number] 05/28/24 14:06 NV Document 06/04/24 13:52 [id number] 06/04/24 13:53 Document 06/11/24 14:00 [facility] [id number] 06/11/24 14:02 [facility] Document 06/18/24 13:58 [id number] 06/18/24 13:58 05/28/24 06/04/24 06/11/24 14:04 13:52 14:00 Wound Care Center Nurse 3 LEFT LATERAL LEG CLUSTER -Primary Dressing Applied Aquacel AG 4x4 Aquacel AG 4x4 -Primary Dressing Covered/Secured with Dry Gauze, Dry Gauze & Secured with Roll Gauze, Tape Secured with Tape -Aquacel AG 4x4 1 1 #1 right lateral leg CLUSTER -Primary Dressing Applied Optilok 5x5 1/2 -Other Dressing epifix -Primary Dressing Covered/Secured with Dry Gauze & Dry Gauze & Roll Gauze, Roll Gauze, Secured with Secured with Tape Tape -Other Covering per mt rn -Optilok 5x5 1/2 1 -Wound Comment(s) epimesh applied BLE -Multi-Layered Wrap Application Multi-Layer Comp - Bilat ($ ) -Other pt own ordered applied per wi circaids rn -Multi-Layer Compression Bilat (Qty 1 applied) Treatment Response Procedure Tolerated Well Pain Scale: 0-10 Numeric Is Patient Pain Free? Yes Yes Yes - Visit Discharge Discharge Condition Stable Stable Ambulatory Status Ambulatory Ambulatory Transportation Private Auto Private Auto Private Auto Medication Reconcilliation completed & No No provided to patient/care provider Clinical Summary of Care Provided Yes Yes 06/18/24 13:58 Wound Care Center Nurse 3 LEFT LATERAL LEG CLUSTER -Primary Dressing Applied -Primary Dressing Covered/Secured with -Aquacel AG 4x4 #1 right lateral leg CLUSTER -Primary Dressing Applied -Other Dressing -Primary Dressing Covered/Secured with Dry Gauze -Other Covering -Optilok 5x5 1/2 -Wound Comment(s) BLE -Multi-Layered Wrap Application Multi-Layer Comp - Bilat ($ ) -Other -Multi-Layer Compression Bilat (Qty 1 applied) Treatment Response Pain Scale: 0-10 Numeric Is Patient Pain Free? Yes WC - Visit Discharge Discharge Condition Stable Ambulatory Status Ambulatory Transportation Private Auto Medication Reconcilliation completed & No provided to patient/care provider Clinical Summary of Care Provided Yes Assessment/Plan Assessment/Plan (1) Chronic venous hypertension (idiopathic) with ulcer of right lower extremity: CODE(S): I87.311 - Chronic venous hypertension (idiopathic) with ulcer of right lower extremity; L97.919 - Non-pressure chronic ulcer of unspecified part of right lower leg with unspecified severity PLAN: Patient was examined and evaluated. All findings were discussed with the patient. All questions were answered to the patient's satisfaction. Excisional debridement down to and including subcutaneous tissue with a number 5 mm dermal curette to the right leg full-thickness ulceration without incident. Predebridement measurement was Sanguinous crust. Postdebridement measurement is 0.5 x 0.8 x 0.1 cm. EpiFix graft was applied to the right full-thickness ulceration leg with 100% use. 9th application. The graft site was free and clear of any infection. The wound/skin graft substitute was dressed with nonadherent bandage secured in place with Steri-Strips followed by bolster dressing as well as multilayer compression 3M wrap. Multilayer compression bandage was donned to left lower extremity. Patient will keep bilateral dressing clean dry and intact. Patient will continue to pump as discussed. Follow-up at the wound care center with Dr. Quinones in 1 week.
== END 2024-06-23 23:59 | disposition home or self-care (01) ==
LOC: WC 13:15
PROVIDERS: PCP Nurse Practitioner Family; Referring Provider Nurse Practitioner Family; Visit Provider Podiatrist Foot & Ankle Surgery
DX: I87.311 Chronic venous hypertension (idiopathic) with ulcer of right lower extremity (principal); L97.812 Non-pressure chronic ulcer of other part of right lower leg with fat layer exposed; L97.822 Non-pressure chronic ulcer of other part of left lower leg with fat layer exposed; M10.071 Idiopathic gout, right ankle and foot; L03.116 Cellulitis of left lower limb; Z79.899 Other long term (current) drug therapy
CPT/HCPCS: 11042; 15271; 29581; Q4186

== ENCOUNTER 2024-07-09 13:15 | Outpatient (RCR) | payer BC, SELFPAY ==
[2024-06-24 00:25] VITALS: BP 137/96; PULSE 109; RESP 18; TEMP 36.2; BMI 43.3
[2024-06-25 13:21] VITALS: BP 151/98; PULSE 98; RESP 18; TEMP 36.5; BMI 43.3
--- NOTE | 2024-06-27 14:28 | PCM.WC.PN ---
History of Present Illness Date of Service: 06/25/24 Chief Complaint: Bilateral leg ulceration History of Wound: Bilateral leg ulcerations Progress of Wound: Bilateral full-thickness wound improving. Subjective Subjective Mr. Meneses is a 59-year-old male presenting to the wound care center today for follow-up evaluation of full-thickness wounds to the bilateral lower extremity. Patient has left his multilayer compression bandages clean dry and intact. v He denies trauma. Denies constitutional symptoms. No pain. No other pedal complaints at this time. Objective Data Objective Data Vital Signs: Vital Signs Temp Pulse Resp BP 97.7 F L 98 18 151/98 H 06/25/24 13:21 06/25/24 13:21 06/25/24 13:21 06/25/24 13:21 Weight: 129.274 kg Body Mass Index (BMI) 43.3 Physical Exam Narrative Vascular: DP and PT pulse are faintly palpable secondary to edema. CFT is brisk. No erythema.Nonpitting edema appreciated to bilateral lower extremity. Neurological: Light touch intact. Patient does respond to painful stimuli. Dermatological: Full-thickness wound to the right lower extremity is now healed. Left lower extremity wound heels are all healed. No erythema proximal streaking or concern for infection. Musculoskeletal: No palpatory tenderness appreciated to the right and left legs. No pain with calf compression bilateral. Debridement Note Debridement Note Post-Debridement Measurements and Additional Note: Post-Debridement Measurements/Treatment [facility] Nurse 1 - General Ulcer Assessment Start: 06/25/24 13:21 Freq: Status: Active Protocol: .LOWEXT Activity Type Activity Date Activity User E-sign Co-sign Detail Recorded Client Recorded Date Recorded By Document 06/25/24 13:21 [id number] 06/25/24 13:22 06/25/24 13:21 - Today's Visit Information Type of service Follow-up Visit (Physician/JIG FITTER ) Arrival Mode Ambulatory Transfer Assistance None Patient Identification Verified (Name & Yes ) Patient Requires Transmission-Based No Precautions Height and Weight Body Mass Index (BMI) 43.3 BMI Classification Obese Vital Signs Temperature (97.8 F-99.1 F) 97.7 F L Temperature Source Temporal Pulse Rate (60-100) 98 Pulse Location Monitor Respiratory Rate (12-18) 18 Respiratory rate source Observation Blood Pressure (90/60-120/80) 151/98 H Blood Pressure Mean (mm Hg) 115 Source Monitor Position Sitting Blood Pressure Location Left Arm History Since Last Visit- (Skip if this is Patient's initial visit) Have you changed medications since your No last visit? Any new allergies or adverse reactions No Had a fall/change in ADL's that may No increase risk of falls Signs or symptoms of abuse and/or No neglect since last visit Have you been in the hospital since your No last visit? Has dressing in place as prescribed Yes Has compression in place as prescribed Yes Has offloadiing in place as prescribed N/A Experienced any changes in pain level or No management Left Footwear Regular Shoe Right Footwear Regular Shoe Pain Scale: 0-10 Numeric Is Patient Pain Free? Yes WC - Nurse 1 - General Ulcer Measurement Start: 06/25/24 13:21 Freq: Status: Active Protocol: Activity Type Activity Date Activity User E-sign Co-sign Detail Recorded Client Recorded Date Recorded By Document 06/25/24 13:21 BALDEV [id number] 06/25/24 13:22 RB 06/25/24 13:21 Wound Center Nurse 1 #1 right lateral leg CLUSTER -Combined with other wound No -Current Size (cm) - Length 0.1 -Current Size (cm) - Width 0.1 -Current Size (cm) - Depth 0.1 -Total Square Cm 0.01 -Tunneling No -Undermining/Tunneling No -Circular Undermining No -Exudate Amt Small -Exudate Type Serosanguineous -Wound Margin Distinct, Outline Attached -Granulation Amt Medium (34-66%) -Granulation Quality [place] -Slough/Fibrin Yes -Necrosis Amt Large (67-100%) -Necrotic Tissue Type Adherent Slough -Structure Exposed N/A -Texture (Ines-wound Skin Appearance) Assessed -Moisture (Ines-wound Skin Appearance) Dry/Scaly -Color (Ines-wound Skin Appearance) Assessed -Temperature (Ines-wound Skin No Abnormality Appearance) (Pt Warm) -Tenderness on Palpation (Ines-wound No Skin Appearance) -Ulcer Cleansing Wound Cleanser -Foul Odor after Cleansing No -Anesthetic Used 5% Lidocaine Gel Lower Limb Edema Present Yes Right Calf (cm) 41 Right Ankle (cm) 26.2 Left Calf (cm) 42 Left Ankle (cm) 26.1 WC - Nurse 2 - General Ulcer CM Notes Start: 06/25/24 13:21 Freq: Status: Active Protocol: Activity Type Activity Date Activity User E-sign Co-sign Detail Recorded Client Recorded Date Recorded By Document 06/25/24 13:40 JF [id number] 06/25/24 13:41 JF 06/25/24 13:40 Wound Center Nurse 2 #1 right lateral leg CLUSTER -Correct Patient Yes -Correct Side, Site, Position No -Correct Procedure No -Procedure Performed No -Post Debridement (cm) - Length 0 -Post Debridement (cm) - Width 0 -Post Debridement (cm) - Depth 0 -Total Square (Post) (cm) 0 -Area of Debridement (cm) - Length 0 -Area of Debridement (cm) - Width 0 -Total Square (Area) (cm) 0 -Wound/Ulcer Outcome Healed- Epithelialized Pain Scale: 0-10 Numeric Is Patient Pain Free? Yes - Nurse 3 - General Ulcer D/C NN Start: 06/25/24 13:21 Freq: Status: Active Protocol: Activity Type Activity Date Activity User E-sign Co-sign Detail Recorded Client Recorded Date Recorded By Document 06/25/24 13:57 RB [id number] 06/25/24 13:58 RB 06/25/24 13:57 Wound Care Center Nurse 3 BLE -Lotion applied to leg before Yes compression wrap -Multi-Layered Wrap Application Multi-Layer Comp - Bilat ($ ) -Multi-Layer Compression Bilat (Qty 1 applied) Treatment Response Procedure Tolerated Well Pain Scale: 0-10 Numeric Is Patient Pain Free? Yes WC - Visit Discharge Discharge Condition Stable Ambulatory Status Ambulatory Transportation Private Auto Medication Reconcilliation completed & No provided to patient/care provider Clinical Summary of Care Provided Yes Notes: bilateral 3M two boxes of 3m used Assessment/Plan Assessment/Plan (1) Chronic venous hypertension (idiopathic) with ulcer of right lower extremity: CODE(S): I87.311 - Chronic venous hypertension (idiopathic) with ulcer of right lower extremity; L97.919 - Non-pressure chronic ulcer of unspecified part of right lower leg with unspecified severity PLAN: Patient was examined and evaluated. All findings were discussed with the patient. All questions were answered to the patient's satisfaction. The patient's by the lower extremities are now healed. Patient will be placed in a multilayer 3M compression wraps of the bilateral lower extremity. He will keep them clean dry and intact. The patient will follow-up in 1 week for nursing visit for dressing changes as well as reapplication. He will follow-up with Dr. Quinones in 2 weeks.
[2024-07-02 15:07] VITALS: BP 157/85; PULSE 87; RESP 18; TEMP 36.2; BMI 43.3
[2024-07-09 13:22] VITALS: BP 130/77; PULSE 112; RESP 18; TEMP 36.6; BMI 43.3
--- NOTE | 2024-07-09 14:14 | PCM.WC.PN ---
History of Present Illness Date of Service: 07/09/24 Chief Complaint: Bilateral leg ulceration History of Wound: Bilateral leg ulcerations Progress of Wound: Bilateral full-thickness wound improving. Subjective Subjective Mr. Meneses is a 59-year-old male presenting to the wound care center today for follow-up evaluation of full-thickness wounds to the bilateral lower extremity. Patient has left his multilayer compression bandages clean dry and intact. He is also using his mechanical compression pumps 2 times per day as instructed. Denies constitutional symptoms. No pain. No other pedal complaints at this time. Objective Data Objective Data Vital Signs: Vital Signs Temp Pulse Resp BP 98 F 112 H 18 130/77 H 07/09/24 13:22 07/09/24 13:22 07/09/24 13:22 07/09/24 13:22 Weight: 129.274 kg Body Mass Index (BMI) 43.3 Physical Exam Narrative Vascular: DP and PT pulse are palpable. CFT is brisk. No erythema. Nonpitting edema appreciated to bilateral lower extremity. Neurological: Light touch intact. Patient does respond to painful stimuli. Dermatological: Full-thickness wound to the right lower extremity is now healed. Left lower extremity wound heels are all healed. No erythema proximal streaking or concern for infection. Musculoskeletal: No palpatory tenderness appreciated to the right and left legs. No pain with calf compression bilateral. Debridement Note Debridement Note Post-Debridement Measurements and Additional Note: Post-Debridement Measurements/Treatment - Nurse 1 - General Ulcer Assessment Start: 06/25/24 13:21 Freq: Status: Active Protocol: WC.[email or web address] Activity Type Activity Date Activity User E-sign Co-sign Detail Recorded Client Recorded Date Recorded By Document 06/25/24 13:21 RB [id number] 06/25/24 13:22 RB Document 07/02/24 15:07 DL [id number] 07/02/24 15:22 DL Document 07/09/24 13:22 RB [id number] 07/09/24 13:23 RB 06/25/24 07/02/24 07/09/24 13:21 15:07 13:22 - Today's Visit Information Type of service Follow-up Visit Nurse-only Follow-up Visit (Physician/GARMENT SEWING MACHINE OPERATOR Visit (Physician/GARMENT SEWING MACHINE OPERATOR ) ) Arrival Mode Ambulatory Ambulatory Ambulatory Transfer Assistance None None None Patient Identification Verified (Name & Yes Yes Yes ) Patient Requires Transmission-Based No No No Precautions Height and Weight Body Mass Index (BMI) 43.3 43.3 43.3 BMI Classification Obese Obese Obese Vital Signs Temperature (97.8 F-99.1 F) 97.7 F L 97.2 F L 98 F Temperature Source Temporal Temporal Temporal Pulse Rate (60-100) 98 87 112 H Pulse Location Monitor Monitor Monitor Respiratory Rate (12-18) 18 18 18 Respiratory rate source Observation Observation Observation Blood Pressure (90/60-120/80) 151/98 H 157/85 H 130/77 H Blood Pressure Mean (mm Hg) 115 109 94 Source Monitor Monitor Monitor Position Sitting Semi-Fowlers Blood Pressure Location Left Arm Left Arm History Since Last Visit- (Skip if this is Patient's initial visit) Have you changed medications since your No No No last visit? Any new allergies or adverse reactions No No No Had a fall/change in ADL's that may No No No increase risk of falls Signs or symptoms of abuse and/or No No No neglect since last visit Have you been in the hospital since your No No No last visit? Has dressing in place as prescribed Yes Yes Yes Has compression in place as prescribed Yes Yes Yes Has offloadiing in place as prescribed N/A N/A N/A Experienced any changes in pain level or No No No management Left Footwear Regular Shoe Regular Shoe Right Footwear Regular Shoe Regular Shoe Pain Scale: 0-10 Numeric Is Patient Pain Free? Yes Yes Yes WC - Nurse 1 - General Ulcer Measurement Start: 06/25/24 13:21 Freq: Status: Active Protocol: Activity Type Activity Date Activity User E-sign Co-sign Detail Recorded Client Recorded Date Recorded By Document 06/25/24 13:21 RB [id number] 06/25/24 13:22 RB Document 07/09/24 13:22 RB [id number] 07/09/24 13:23 RB 06/25/24 07/09/24 13:21 13:22 Wound Center Nurse 1 #1 right lateral leg CLUSTER -Combined with other wound No -Current Size (cm) - Length 0.1 -Current Size (cm) - Width 0.1 -Current Size (cm) - Depth 0.1 -Total Square Cm 0.01 -Tunneling No -Undermining/Tunneling No -Circular Undermining No -Exudate Amt Small -Exudate Type Serosanguineous -Wound Margin Distinct, Outline Attached -Granulation Amt Medium (34-66%) -Granulation Quality [place] -Slough/Fibrin Yes -Necrosis Amt Large (67-100%) -Necrotic Tissue Type Adherent Slough -Structure Exposed N/A -Texture (Ines-wound Skin Appearance) Assessed -Moisture (Ines-wound Skin Appearance) Dry/Scaly -Color (Ines-wound Skin Appearance) Assessed -Temperature (Ines-wound Skin No Abnormality Appearance) (Pt Warm) -Tenderness on Palpation (Ines-wound No Skin Appearance) -Ulcer Cleansing Wound Cleanser -Foul Odor after Cleansing No -Anesthetic Used 5% Lidocaine Gel Lower Limb Edema Present Yes Yes Right Calf (cm) 41 41.5 Right Ankle (cm) 26.2 27.3 Left Calf (cm) 42 42.5 Left Ankle (cm) 26.1 27.4 - Nurse 2 - General Ulcer CM Notes Start: 06/25/24 13:21 Freq: Status: Active Protocol: Activity Type Activity Date Activity User E-sign Co-sign Detail Recorded Client Recorded Date Recorded By Document 06/25/24 13:40 [id number] 06/25/24 13:41 Document 07/09/24 13:27 [id number] 07/09/24 13:28 06/25/24 07/09/24 13:40 13:27 Wound Center Nurse 2 #1 right lateral leg CLUSTER -Correct Patient Yes -Correct Side, Site, Position No -Correct Procedure No -Procedure Performed No -Post Debridement (cm) - Length 0 -Post Debridement (cm) - Width 0 -Post Debridement (cm) - Depth 0 -Total Square (Post) (cm) 0 -Area of Debridement (cm) - Length 0 -Area of Debridement (cm) - Width 0 -Total Square (Area) (cm) 0 -Wound/Ulcer Outcome Healed- Epithelialized Pain Scale: 0-10 Numeric Is Patient Pain Free? Yes Yes - Nurse 3 - General Ulcer D/C NN Start: 06/25/24 13:21 Freq: Status: Active Protocol: Activity Type Activity Date Activity User E-sign Co-sign Detail Recorded Client Recorded Date Recorded By Document 06/25/24 13:57 RB [id number] 06/25/24 13:58 RB Document 07/02/24 15:07 DL [id number] 07/02/24 15:22 DL Document 07/09/24 13:38 ML [id number] 07/09/24 13:38 ML 06/25/24 07/02/24 07/09/24 13:57 15:07 13:38 Wound Care Center Nurse 3 BLE -Lotion applied to leg before Yes compression wrap -Multi-Layered Wrap Application Multi-Layer Multi-Layer Comp - Bilat ($ Comp - Bilat ($ ) ) -Multi-Layer Compression Bilat (Qty 1 1 applied) Treatment Response Procedure Procedure Tolerated Well Tolerated Well Pain Scale: 0-10 Numeric Is Patient Pain Free? Yes Yes Yes WC - Visit Discharge Discharge Condition Stable Stable Ambulatory Status Ambulatory Ambulatory Transportation Private Auto Private Auto Medication Reconcilliation completed & No provided to patient/care provider Clinical Summary of Care Provided Yes Notes: bilateral 3M two boxes of 3m used Assessment/Plan Assessment/Plan (1) Chronic venous hypertension (idiopathic) with ulcer of right lower extremity: CODE(S): I87.311 - Chronic venous hypertension (idiopathic) with ulcer of right lower extremity; L97.919 - Non-pressure chronic ulcer of unspecified part of right lower leg with unspecified severity PLAN: Patient was examined and evaluated. All findings were discussed with the patient. All questions were answered to the patient's satisfaction. After physical examination of the patient showed complete healing to the bilateral lower extremity full-thickness ulcerations. Patient will continue to wear his compression socks and interchange between the CircAid's and compression socks when they are dirty. Patient will continue to use the mechanical pumping 2-3 times per day. Patient was reeducated on the importance of compression wearing and how this is going to be a lifelong process for him due to his vascular structure. Patient was understanding of everything that was explained to him. He is very grateful for his care and is happy to be discharged from the wound care center at this time. Patient was educated to follow-up with me in private office if he ever has concerned for breakdown of skin or full-thickness wounds or any type of pedal complaints. Business card was dispensed to the patient and he left the wound care center very pleased with his last visit.
== END 2024-07-23 23:59 | disposition home or self-care (01) ==
LOC: WC 13:15
PROVIDERS: PCP Nurse Practitioner Family; Referring Provider Nurse Practitioner Family; Visit Provider Podiatrist Foot & Ankle Surgery
DX: Z09 Encounter for follow-up examination after completed treatment for conditions other than malignant neoplasm (principal); I87.301 Chronic venous hypertension (idiopathic) without complications of right lower extremity
CPT/HCPCS: 29581; 99213; G0463